=== PATIENT | female | born 1945 | race Caucasian/White ===

== ENCOUNTER 2019-09-30 10:45 | Emergency (ER) | payer MEDICARE, OTHER, SELFPAY ==
--- NOTE | ~2019-09-30 | CT_ITS ---
EXAMINATION: CT BRAIN W/O DATE: 09/30/2019 12:09 INDICATION: Status post fall. Headache. TECHNIQUE: Computed tomography (CT) of the head was performed without intravenous contrast. The dose- length product was 605.33 mGy-cm. The mA was adjusted according to patient size. Iterative reconstruc tion technique was employed. COMPARISON: No prior studies for comparison. FINDINGS: Normal brain parenchymal volume for age. Normal akins-white differentiation. No acute intrac ranial hemorrhage, infarction, mass or mass effect. There is a chronic left thalamic infarction. Ther e are scattered mild periventricular and subcortical white matter changes, most likely related to sma ll vessel ischemic disease (microangiopathy). No ventriculomegaly or midline shift. Midline sagittal images demonstrate a normal corpus callosum, c raniovertebral junction and sella turcica. Basilar cisterns are patent. Paranasal sinuses and mastoids are pneumatized. No depressed skull fractures. IMPRESSION: 1. No acute intracranial abnormality. 2: Chronic left thalamic infarction. Reviewed, dictated and finalized at location A.
--- NOTE | ~2019-09-30 | XR_ITS ---
XR femur RT min 2V, XR tibia fibula RT 2V 09/30/2019 11:55 INDICATION: Status post fall. Right leg pain. PROCEDURE: 2 views right femur and 2 views right tibia/fibula COMPARISON: No prior studies for comparison. FINDINGS: Fracture, dislocation or subluxation is not identified. The soft tissues appear within norm al limits. No foreign bodies are identified. IMPRESSION: 1: NO ACUTE BONE OR JOINT ABNORMALITY IDENTIFIED. Reviewed, dictated and finalized at location A. IMPRESSION: 1: NO ACUTE BONE OR JOINT ABNORMALITY IDENTIFIED.
--- NOTE | ~2019-09-30 | CT_ITS ---
EXAMINATION: CT cervical spine wo con DATE: 09/30/2019 12:10 INDICATION: Neck pain after fall TECHNIQUE: Computed tomography (CT) of the cervical spine was performed without intravenous contrast. The dose-length product was 240 mGy-cm. Automated exposure control and iterative reconstruction tech nique were employed. COMPARISON: None FINDINGS: No acute fracture, subluxation or dislocation. Normal cervical lordosis. There is disc narr owing and endplate degenerative change at C5-6 and C6-7. Odontoid process within normal limits. No si gnificant paraspinal soft tissue abnormality. Lung apices are normal. There is mild multilevel uncina te hypertrophy. IMPRESSION: 1. No acute fracture. Reviewed, dictated and finalized at location A. IMPRESSION: 1. No acute fracture.
[2019-09-30 10:51] VITALS: BP 141/109; PULSE 89; RESP 16; TEMP 37.2; O2SAT 100
[2019-09-30] MEDS: TRAMADOL HCL 50 MG TABLET PO (12:15)
--- NOTE | 2019-09-30 13:00 | ED.FALL ---
HPI - Fall General Chief Complaint: Fall <Dar Villa PA-C - Last Filed: 09/30/19 18:51> Stated Complaint: Fell down 7 steps <JESSICA Ramirez Last Filed: 09/30/19 18:51> Time Seen by Provider: 09/30/19 11:13 <Dar Villa PA-C - Last Filed: 09/30/19 18:51> Source: patient <JESSICA Ramirez Last Filed: 09/30/19 18:51> Mode of arrival: ambulatory <JESSICA Ramirez Last Filed: 09/30/19 18:51> Limitations: no limitations <JESSICA Ramirez Last Filed: 09/30/19 18:51> History of Present Illness HPI Narrative: Patient presents with chief complaint to right leg after falling down several stairs last night at approximately 10:30 PM. states that he witnessed the fall and patient did not lose consciousness. Patient reports doing sitting on a couch last night and thinking that the pain was tolerable so they went to bed. Patient states last night she did not sleep very well due to discomfort so they came to the emergency department today. Patient states that she also noted neck pain today. Patient denies changes in behavior, Changes in vision or hearing, bleeding from any of her orifices. Patient denies chest pain, shortness of breath, rib pain, spinal pain, sacrum or coccyx pain, abdominal pain. Patient states she takes a daily aspirin. <Dar Villa PA-C - Last Filed: 09/30/19 18:51> Related Data Allergies/Adverse Reactions: Allergies Allergy/AdvReac Type Severity Reaction Status Date / Time codeine Allergy Unknown Nausea Verified 09/30/19 10:59 <Dar Villa PA-C - Last Filed: 09/30/19 18:51> Review of Systems Review of Systems: Narrative: CONSTITUTIONAL: Denies fever, chills, or sweats. EYES: Denies visual changes, redness, or discharge. ENT: Denies rhinorrhea, congestion, sore throat, or otalgia. CARDIOVASCULAR: Denies chest pain, palpitations, or edema. RESPIRATORY: Denies cough or dyspnea. GASTROINTESTINAL: Denies abdominal pain, nausea, vomiting, or diarrhea. GENITOURINARY: Denies dysuria or hematuria. SKIN: Denies rash or itching. MUSCULOSKELETAL: Reports neck and right leg pain. Denies back pain, joint pain, or myalgia. NEUROLOGIC: Denies headache, numbness, dizziness, or weakness. PSYCHIATRIC: Denies anxiety or depression. <Dar Villa PA-C - Last Filed: 09/30/19 18:51> [facility] Social History Social History: Social History Smoking status: Never smoker Smoking end date: 07/25/84 Alcohol intake: current <Dar Villa PA-C - Last Filed: 09/30/19 18:51> Exam Narrative: Exam Narrative: GENERAL: Well-appearing, well-nourished, and in no acute distress. HEAD: Normocephalic, atraumatic. No hematomas, lacerations or swellings palpated. EYES: PERRLA and EOMI. ENT: Nares clear, no rhinorrhea or epistaxis. Mucous membranes moist. Oropharynx without tonsillar hypertrophy exudate or other lesions. Bilateral TMs pearly akins nonbulging. No hemotympanum noted. NECK: Supple. No adenopathy or masses. Diffuse tenderness to C-spine no step-offs palpated. Patient declines c-collar. active range of motion intact CHEST: Nontender to palpation. No erythema or ecchymosis noted. Clear to auscultation. No respiratory distress. No wheezes rales or rhonchi HEART: Regular rate and rhythm. Normal peripheral pulses. ABDOMEN: Soft, nontender, nondistended, normal active bowel sounds. BACK: No spinal tenderness. No step-offs palpated. No ecchymosis or abrasions noted. Range of motion intact. EXTREMITIES: Small bruises noted to bilateral thighs. Tenderness to palpation diffusely to upper and lower right leg. No open wounds. Mildly decreased flexion due to pain to right leg. No groin tenderness or hip pain. SKIN: Ecchymosis small size to upper right and left thigh. warm, dry, no rash. NEURO: No focal deficits. Alert and oriented x3. PSYCH: Normal mood and affect. <TUNG Ramirez-
[2019-09-30 13:56] VITALS: BP 127/57; PULSE 66; RESP 20; O2SAT 99
== END 2019-09-30 13:58 | disposition home or self-care (01) ==
PROVIDERS: Emergency Provider Emergency Medicine; PCP Family Medicine
DX: S70.11XA Contusion of right thigh, initial encounter (principal); S70.12XA Contusion of left thigh, initial encounter; S16.1XXA Strain of muscle, fascia and tendon at neck level, initial encounter; W10.9XXA Fall (on) (from) unspecified stairs and steps, initial encounter; Z79.82 Long term (current) use of aspirin
CPT/HCPCS: 70450; 72125; 73552; 73590; 99284; A9270

== ENCOUNTER 2019-10-05 14:36 | Outpatient (CLI) | payer MEDICARE, OTHER, SELFPAY ==
--- NOTE | ~2019-10-05 | MR_ITS ---
EXAMINATION: MR lower leg RT wo con DATE: 10/05/2019 16:02 INDICATION: Right lower leg pain. TECHNIQUE: Magnetic resonance imaging (MRI) of the right tibia and fibula was performed without intra venous contrast. Sequences included axial, coronal, and sagittal T1-weighted FSE and STIR FSE. COMPARISON: Right tibia and fibula radiographs 09/30/2019 FINDINGS: Bone alignment is normal. There is a nondisplaced oblique fracture of head of proximal fibu la. There is edema in the surrounding muscles. There is mild right knee osteoarthritis. There is a sm all right knee joint effusion. IMPRESSION: 1. Nondisplaced oblique fracture of head of proximal fibula. Reviewed, dictated and finalized at location A.
== END 2019-10-05 14:37 | disposition home or self-care (01) ==
PROVIDERS: PCP Family Medicine; Visit Provider Nurse Practitioner Family
DX: S82.434A Nondisplaced oblique fracture of shaft of right fibula, initial encounter for closed fracture (principal); Z91.81 History of falling
CPT/HCPCS: 73718

== ENCOUNTER 2020-10-23 09:39 | Outpatient (CLI) | payer MEDICARE, OTHER, SELFPAY ==
[2020-10-23 10:34] LABS: Basophils Percent Auto 0.8 % (0.2-1.2); Eosinophils Absolute Auto 0.2 K/mm3 (0-0.3); Eosinophils Percent Auto 4.7 % (0-4.4); Hematocrit 39.5 % (37.0-47.0); Hemoglobin 12.9 g/dL (12.0-15.0); Immature Granulocyte Absolute 0.02 K/mm3 (0.00-0.031); Immature Granulocyte Percent A 0.4 % (0-0.5); Lymphocytes Absolute Auto 1.64 K/mm3 (0.9-3.2); Lymphocytes Percent Auto 34.7 % (18.3-44.2); Mean Corpuscular HGB Conc 32.7 g/dl (32-36); Mean Corpuscular Hemoglobin 29.2 pg (26-34); Mean Corpuscular Volume 89.4 fl (80-100); Mean Platelet Volume 10.7 fl (7.4-10.4); Monocytes Absolute Auto 0.5 K/mm3 (0.1-0.6); Monocytes Percent Auto 10.4 % (2.6-8.5); Neutrophils Absolute Auto 2.3 K/mm3 (1.3-6.7); Platelet Count Result 237 k/mm3 (150-375); Red Blood Count 4.42 M/mm3 (4.2-5.4); Red Cell Distribution Width 13.7 % (11.5-14.5); White Blood Count 4.7 K/mm3 (4.5-10.0)
[2020-10-23 10:42] LABS: Alanine Aminotransferase 14 U/L (4-35); Albumin Level 4.2 g/dL (3.5-5.1); Alkaline Phosphatase 44 U/L (38-126); Anion Gap 5 mmol/L (8-16); Aspartate Amino Transferase 21 U/L (14-36); Bilirubin,Total 0.4 mg/dL (0.2-1.3); Blood Urea Nitrogen 24 mg/dL (7-17); Calcium 9.6 mg/dL (8.4-10.2); Carbon Dioxide 28 mmol/L (22-30); Chloride 107 mmol/L (98-107); Cholesterol 263 mg/dL (0-200); Estimated Glomerular Filt Rate > 60; Glucose 103 mg/dL (65-105); HDL Direct 79 mg/dL; Potassium 4.7 mmol/L (3.4-5.0); Sodium 140 mmol/L (137-145); Triglycerides 81 mg/dL (<150)
[2020-10-23 10:53] LABS: LDL Cholesterol Direct 132 mg/dL
== END 2020-10-23 09:40 | disposition home or self-care (01) ==
LOC: ANHLAB 09:44
PROVIDERS: PCP Family Medicine; Visit Provider Family Medicine
DX: F41.9 Anxiety disorder, unspecified (principal); Z13.220 Encounter for screening for lipoid disorders; E78.2 Mixed hyperlipidemia; I73.00 Raynaud's syndrome without gangrene
CPT/HCPCS: 36415; 80053; 80061; 84443; 85025

== ENCOUNTER → 2021-03-14 02:10 | Outpatient (CLI) | payer MEDICARE, OTHER, SELFPAY ==
[2021-03-15 01:36] LABS: SARS-CoV-2 RNA PCR Negative
== END ==
PROVIDERS: PCP Family Medicine; Visit Provider Family Medicine
DX: R50.9 Fever, unspecified (principal); R51.9 Headache, unspecified; Z20.822 Contact with and (suspected) exposure to COVID-19
CPT/HCPCS: C9803; U0003; U0005

== ENCOUNTER 2021-03-16 11:40 | Emergency (ER) | payer MEDICARE, OTHER, SELFPAY ==
[2021-03-16 11:55] VITALS: BP 112/58; PULSE 92; RESP 18; TEMP 36.7; O2SAT 99
--- NOTE | 2021-03-16 12:40 | ED.GENADULT ---
HPI - General Adult General Chief complaint: Upper Respiratory Infection Stated complaint: headache/chills/fever/body aches Time Seen by Provider: 03/16/21 12:30 Source: patient and family (Has been) History of Present Illness HPI narrative: 75-year-old female presents to the [facility] at request of her primary care provider. She states on she started with headache, Tuesday morning started with fatigue, headache, chills, muscle aches. This morning started with a red rash to bilateral lower legs and since has progressed to a petechial rash. Denies it being itchy or painful. Rashes only to the bilateral lower legs. Related Data Home Medications Medication Instructions Recorded Confirmed fluocinonide 1 applic TOPICAL DAILY 03/16/21 03/16/21 Allergies Allergy/AdvReac Type Severity Reaction Status Date / Time codeine Allergy Unknown Nausea Verified 08/14/20 08:20 Review of Systems Review of Systems: All systems reviewed & are unremarkable except as noted in HPI and below Constitutional: Constitutional: Reports as per HPI, Reports chills and Denies fever(s) Eyes: Eyes: Reports no additional eye complaints ENT: Reports system reviewed and no additional complaints, except as documented Cardiovascular: Cardiovascular: Reports no additional cardiovascular complaints and Denies chest pain Respiratory: Respiratory: Reports as per HPI, Reports cough and Reports dyspnea Gastrointestinal: Gastrointestinal: Reports no additional gastrointestinal complaints and Denies abdominal pain Musculoskeletal: Musculoskeletal: Reports as per HPI, Denies back pain and Reports myalgias Integumentary/Breasts: Skin/Breast: Reports as per HPI and Reports rash (Bilateral legs) Neurologic: Reports as per HPI and Reports headache(s) Psychiatric: Psychiatric: Reports no additional psychiatric complaints Allergic/Immunologic: Allergic/Immunologic: Reports no additional allergic/immunologic complaints [facility] Past Medical History Medical History (Updated 03/16/21 @ 20:22 by Brinda Cormier) Anxiety BMI 25.0-25.9,adult Chronic constipation Depression Fracture of proximal end of fibula High ankle sprain of right lower extremity Osteoporosis Screen for colon cancer Family History Family History Father Hypertension Cerebrovascular accident Family history of diabetes mellitus in first degree relative Family history of coronary artery disease Mother Hypertension Cerebrovascular accident Family history of diabetes mellitus in first degree relative Family history of coronary artery disease Sibling Hypertension Family history of diabetes mellitus in first degree relative Other Diabetes mellitus Family history of arthritis Social History Social History Smoking status: Former smoker Smoking end date: 07/25/84 Alcohol intake: current Comments At the time of my signature, I reviewed and agree with the nursing past medical, surgical, social, and family history. There is no relevant family history pertinent to the patient complaint. Exam Const: General: no acute distress, alert and ill appearing acutely Nutritional Appearance: well nourished Orientation/consciousness: patient oriented x3 Limitations: no limitations HENMT: Head: normal to inspection Ears: external ears normal Eyes: Conjunctivae: conjunctivae normal Pupils: Equal, round and reactive pupils present Neck: Neck: normal visual inspection, no lymphadenopathy and no meningeal signs Chest: Chest palpation & inspection: normal inspection of the chest Resp: Effort & Inspection: normal respiratory effort and no use of accessory muscles Auscultation: clear to auscultation bilaterally, no rales, no rhonchi and no wheezes Cardio: Rate: regular rate Rhythm: regular rhythm GI: GI Palp: Yes Soft to palpation and No Tenderness to palpation p
== END 2021-03-16 13:40 | disposition short-term general hospital (02) ==
LOC: EXPCOLL 11:49
PROVIDERS: Emergency Provider Nurse Practitioner; PCP Family Medicine
DX: B34.9 Viral infection, unspecified (principal); R21 Rash and other nonspecific skin eruption; Z20.822 Contact with and (suspected) exposure to COVID-19; Z87.891 Personal history of nicotine dependence; M81.0 Age-related osteoporosis without current pathological fracture
CPT/HCPCS: 87426; 87804; 99213; C9803; G0463

== ENCOUNTER 2021-03-16 14:30 | Emergency (ER) | payer MEDICARE, OTHER, SELFPAY ==
[2021-03-16 15:08] VITALS: BP 124/72; PULSE 95; RESP 18; TEMP 36.6; O2SAT 97
[2021-03-16 15:29] LABS: Basophils Percent Auto 0.6 % (0.2-1.2); Eosinophils Absolute Auto 0.3 K/mm3 (0-0.3); Eosinophils Percent Auto 4.1 % (0-4.4); Hematocrit 41.8 % (37.0-47.0); Hemoglobin 13.5 g/dL (12.0-15.0); Immature Granulocyte Absolute 0.04 K/mm3 (0.00-0.031); Immature Granulocyte Percent A 0.6 % (0-0.5); Lymphocytes Absolute Auto 1.79 K/mm3 (0.9-3.2); Lymphocytes Percent Auto 25.5 % (18.3-44.2); Mean Corpuscular HGB Conc 32.3 g/dl (32-36); Mean Corpuscular Hemoglobin 29.3 pg (26-34); Mean Corpuscular Volume 90.7 fl (80-100); Mean Platelet Volume 10.1 fl (7.4-10.4); Monocytes Absolute Auto 0.5 K/mm3 (0.1-0.6); Monocytes Percent Auto 6.7 % (2.6-8.5); Neutrophils Absolute Auto 4.4 K/mm3 (1.3-6.7); Neutrophils Percent Auto 62.5 % (45.5-73.1); Platelet Count Result 234 k/mm3 (150-375); Red Blood Count 4.61 M/mm3 (4.2-5.4); Red Cell Distribution Width 13.3 % (11.5-14.5)
[2021-03-16 15:40] LABS: Alanine Aminotransferase 17 U/L (4-35); Alkaline Phosphatase 67 U/L (38-126); Anion Gap 10 mmol/L (8-16); Aspartate Amino Transferase 22 U/L (14-36); Bilirubin,Total 0.6 mg/dL (0.2-1.3); Blood Urea Nitrogen 20 mg/dL (7-17); Calcium 9.5 mg/dL (8.4-10.2); Carbon Dioxide 25 mmol/L (22-30); Chloride 99 mmol/L (98-107); Estimated CRCL calculation 43 ml/min; Estimated Glomerular Filt Rate > 60; Glucose 142 mg/dL (65-110); Potassium 4.5 mmol/L (3.4-5.0); Sodium 134 mmol/L (137-145)
[2021-03-16 17:04] VITALS: BP 111/64; PULSE 88; RESP 18; O2SAT 98
--- NOTE | 2021-03-16 17:36 | ED.GENADULT ---
HPI - General Adult General Chief complaint: Skin/Abscess/Foreign Body Stated complaint: H/A, FATIGUE/RASH, SENT FROM [facility]/-covid Time Seen by Provider: 03/16/21 17:35 Source: patient Mode of arrival: ambulatory Limitations: no limitations History of Present Illness HPI narrative: Patient is here for evaluation of fatigue and a purpuric rash that developed on her legs today. It does not itch and is primarily on her legs, now starting on her forearms. She is also complaining of significant dry mouth. She has been taking Cipro since Tuesday evening. The rash developed today and worsened as the day progressed. She states that her fatigue has been for several days along with her dry mouth. She is unclear of an exact timeline as she has been caring for her ill . Onset (ago): day(s) Radiation: non-radiation Associated symptoms: denies other symptoms Related Data Home Medications Medication Instructions Recorded Confirmed fluocinonide 1 applic TOPICAL DAILY 03/16/21 03/16/21 Allergies Allergy/AdvReac Type Severity Reaction Status Date / Time codeine Allergy Unknown Nausea Verified 08/14/20 08:20 Review of Systems Review of Systems: All systems reviewed & are unremarkable except as noted in HPI and below PMFSH Past Medical History Medical History (Updated 03/16/21 @ 20:15 by Bing Romero PA-C) Anxiety BMI 25.0-25.9,adult Chronic constipation Depression Fracture of proximal end of fibula High ankle sprain of right lower extremity Osteoporosis Screen for colon cancer Family History Family History Father Hypertension Cerebrovascular accident Family history of diabetes mellitus in first degree relative Family history of coronary artery disease Mother Hypertension Cerebrovascular accident Family history of diabetes mellitus in first degree relative Family history of coronary artery disease Sibling Hypertension Family history of diabetes mellitus in first degree relative Other Diabetes mellitus Family history of arthritis Social History Social History Smoking status: Former smoker Smoking end date: 07/25/84 Alcohol intake: current Exam Const: General: no acute distress and alert Orientation/consciousness: patient oriented x3 HENMT: Head: normal to inspection Eyes: Pupils: Equal, round and reactive pupils present Neck: Neck: no lymphadenopathy Resp: Effort & Inspection: normal respiratory effort Auscultation: clear to auscultation bilaterally Cardio: Rate: regular rate Rhythm: regular rhythm GI: GI Palp: Yes Soft to palpation : General: Yes no CVA tenderness Skin: Rashes: rashes noted (BLE and BUE. mottling, slightly raised. non-blanching in LE.) Neuro: General: patient oriented x3, moves all extremities, no meningeal signs and no focal motor deficits Extrem: General: no clubbing, cyanosis or edema Right lower extremity: knee Details: tenderness and swelling Left lower extremity: knee Details: tenderness and swelling Psych: Mental Status: mental status grossly normal Course Course Emergency Course: Patient's labs are all normal. The rash is not a typical drug reaction. Her cluster of symptoms are concerning for a Dao-Nicko type reaction or Sjogren's. Patient is feeling better and the rash looks a little better after receiving a dose of steroids. Discussed all the options. She also suffers from chronic constipation should be discussing treatment options with her primary care physician she has an appointment in the next couple weeks. Vital Signs Vital signs: Vital Signs Temperature 36.6 C 03/16/21 15:08 Pulse Rate 95 03/16/21 15:08 Respiratory Rate 18 03/16/21 15:08 Blood Pressure 124/72 03/16/21 15:08 Pulse Oximetry 97 03/16/21 15:08 Temperature 36.6 C 03/16/21 15:08 Pulse Rate 88 03/16/21 17:04 Respira
--- NOTE | 2021-03-16 18:13 | PC.NURSE ---
Called and spoke to Peggy about adding on TSH at 1810
[2021-03-16 19:12] LABS: Add Urine Microscopic? YES; Appearance Urine Clear (Clear); Bilirubin Urine Negative (Negative); Blood Urine Negative (Negative); Color Urine Yellow (Yellow); Glucose Urine UA Negative (Negative); Ketones Urine Negative (Negative); Leukocyte Esterase Ur Negative LEU/UL (Negative); Nitrate Urine Negative (Negative); Protein Urine Negative (Negative); Urobilinogen Urine Negative mg/dL (<2.0)
[2021-03-16] MEDS: predniSONE 20 MG TABLET 40 MG PO (19:36)
[2021-03-16 19:44] LABS: Squamous Epithelial Cell Urine Rare /hpf (Few)
[2021-03-16 20:21] VITALS: BP 131/75; PULSE 73; RESP 18; O2SAT 100
== END 2021-03-16 20:22 | disposition home or self-care (01) ==
PROVIDERS: Physician Assistant; Emergency Provider Emergency Medicine; PCP Family Medicine
DX: L27.0 Generalized skin eruption due to drugs and medicaments taken internally (principal); T36.8X5A Adverse effect of other systemic antibiotics, initial encounter; R53.83 Other fatigue; K59.09 Other constipation; Z87.891 Personal history of nicotine dependence; M81.0 Age-related osteoporosis without current pathological fracture; F41.9 Anxiety disorder, unspecified; F32.9 Major depressive disorder, single episode, unspecified
CPT/HCPCS: 36415; 51701; 80053; 81001; 84443; 85025; 87426; 87804; 99283; C9803; J7512

== ENCOUNTER 2021-05-06 10:13 | Outpatient (CLI) | payer MEDICARE, OTHER, SELFPAY ==
--- NOTE | 2021-05-06 12:00 | NEURO_ITS ---
Impression: # Complains of pain in lower extremities. # Normal nerve conduction study of peroneal, posterior tibial and sensory nerves. # Needle/EMG exam not requested. # Clinical correlation recommended. Nerve Conduction Studies Anti Sensory Summary Table Stim Site NR Peak (ms) P-T Amp (?V) Site1 Site2 Delta-P (ms) Dist (cm) Adilson (m/s) Left Sup Fibular Anti Sensory (Ant Lat Mall) 14 cm 3.8 7.9 14 cm Ant Lat Mall 3.8 16.0 42 Right Sup Fibular Anti Sensory (Ant Lat Mall) 14 cm 3.2 13.5 14 cm Ant Lat Mall 3.2 16.0 50 Left Sural Anti Sensory (Lat Mall) Calf 3.3 11.0 Calf Lat Mall 3.3 16.0 48 Right Sural Anti Sensory (Lat Mall) Calf 3.6 7.2 Calf Lat Mall 3.6 16.0 44 Motor Summary Table Stim Site NR Onset (ms) O-P Amp (mV) Site1 Site2 Delta-0 (ms) Dist (cm) Adilson (m/s) Left Peroneal Motor (Vastus Med) Ankle 3.8 1.7 Popit Ankle 7.7 39.0 51 Popit 11.5 1.3 Right Peroneal Motor (Vastus Med) Ankle 4.0 3.3 Popit Ankle 7.1 35.0 49 Popit 11.1 2.7 Left Tibial Motor (Abd Chavarria Brev) Ankle 4.3 5.3 Knee Ankle 7.7 39.0 51 Knee 12.0 3.5 Right Tibial Motor (Abd Chavarria Brev) Ankle 4.4 9.1 Knee Ankle 7.9 39.0 49 Knee 12.3 5.5 F Wave Studies NR F-Lat (ms) L-R F-Lat (ms) Left Peroneal (Mrkrs) (EDB) 44.16 0.06 Right Peroneal (Mrkrs) (EDB) 44.22 0.06 Left Tibial (Mrkrs) (Abd Hallucis) 45.08 0.33 Right Tibial (Mrkrs) (Abd Hallucis) 45.41 0.33 MTDD
== END 2021-05-06 10:14 | disposition home or self-care (01) ==
LOC: ANHNEURO 10:14
PROVIDERS: PCP Family Medicine; Visit Provider Family Medicine
DX: G60.9 Hereditary and idiopathic neuropathy, unspecified (principal)
CPT/HCPCS: 95910

== ENCOUNTER 2021-09-29 11:59 | Emergency (ER) | payer MEDICARE, OTHER, SELFPAY ==
--- NOTE | ~2021-09-29 | CT_ITS ---
EXAMINATION: CT brain wo con EXAM DATE: 09/29/2021 12:44 INDICATION: Altered mental status TECHNIQUE: Spiral CT of the head was performed without contrast. Axial, coronal and sagittal images were reviewed. The dose-length product (DLP) for this examination was 605.33 mGy-cm. The exposure w as tailored according to patient size, and iterative reconstruction (ASIR) was used as additional dos e reduction technique. Comparison is made to prior examination from 09/30/2019. FINDINGS: There is no acute intraparenchymal hemorrhage. No evidence of intraparenchymal brain mass lesion. No evidence of acute infarction. Please note that initial head CT has limited sensitivity f or small or acute infarctions. There is old left thalamic lacunar infarction unchanged. There is mi ld periventricular and subcortical hypodensity, nonspecific but probably related to small vessel isch emic disease. There is moderate prominence of the sulci and ventricles related to cerebral atrophy. There is intracranial carotid arteriosclerosis. There are no extra-axial collections. There is n o mass effect or midline shift. Patient has had bilateral ocular lens surgery. Soft tissue is unrem arkable. The visualized sinuses and mastoid air cells are well aerated. IMPRESSION: 1. No acute intracranial findings. 2. Chronic age related findings. 3. 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 Reviewed, dictated and finalized at location A. 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
--- NOTE | ~2021-09-29 | XR_ITS ---
EXAMINATION: XR chest 2V EXAM DATE: 09/29/2021 12:48 INDICATION: Weakness, urinary tract infection. TECHNIQUE: Frontal and lateral projections of the chest obtained and reviewed. Comparison is made to prior examination from 05/29/2019. FINDINGS: The lungs are clear. There are no pleural effusions. The cardiomediastinal silhouette is within normal limits. There is no pneumothorax suspected. The bones and soft tissues are unremarkab le. IMPRESSION: No acute cardiopulmonary findings. Reviewed, dictated and finalized at location A. 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
[2021-09-29 12:02] VITALS: BP 150/92; PULSE 87; RESP 18; TEMP 36.8; O2SAT 100
--- NOTE | 2021-09-29 12:31 | ECG_ITS ---
Measurements Intervals [place] Rate: 72 P: 66 [place]: 139 QRS: 11 QRSD: 75 T: 29 QT: 371 QTc: 406 Interpretive Statements SINUS RHYTHM NORMAL ECG NO PREVIOUS ECG AVAILABLE FOR COMPARISON Electronically Signed On 09-29-2021 14:55:11 TRADEMARK ATTORNEY by Rob Maldonado M.D.
--- NOTE | 2021-09-29 12:32 | ED.GENADULT ---
HPI - General Adult General Chief complaint: Unspecified Stated complaint: urinary frequency Time Seen by Provider: 09/29/21 12:29 Source: patient and family Mode of arrival: ambulatory Limitations: no limitations History of Present Illness HPI narrative: Patient is a 76-year-old female complaining of reaction to Wellbutrin described as intermittent short-term memory loss, generalized weakness and increased urinary frequency started 1 week ago. Patient had similar a episode last month from Wellbutrin XR, was seen and evaluated by her PCP and was changed to regular Wellbutrin. Patient is alert and awake and oriented x4, walked with her room without difficulty. Patient denies any headache, dizziness, speech or visual disturbance, focal weakness or numbness, unsteady gait, chest pain, shortness of breath, abdominal pain, nausea, vomiting, fever or chills. Related Data Allergies Allergy/AdvReac Type Severity Reaction Status Date / Time codeine Allergy Unknown Nausea Verified 09/14/21 08:40 Review of Systems Review of Systems: All systems reviewed & are unremarkable except as noted in HPI and below Constitutional: Constitutional: Denies body ache(s), Denies chills, Denies excessive sweating, Denies fatigue, Denies fever(s), Denies headache(s), Denies lethargy, Denies malaise, Denies weakness and Denies weight loss Eyes: Eyes: Denies blurry vision, Denies change in vision and Denies loss of vision ENT: Denies dizziness, Denies ear discharge, Denies headache(s), Denies lip swelling, Denies epistaxis, Denies nasal congestion, Denies neck pain, Denies throat swelling and Denies tongue swelling Cardiovascular: Cardiovascular: Denies chest pain, Denies chest pain at rest, Denies chest pain with activity, Denies diaphoresis, Denies rapid heart rate, Denies edema, Denies irregular heart rhythm, Denies lightheadedness, Denies palpitations, Denies dyspnea and Denies dyspnea on exertion Respiratory: Respiratory: Denies chest congestion, Denies cough, Denies hemoptysis, Denies dyspnea and Denies dyspnea on exertion Gastrointestinal: Gastrointestinal: Denies abdominal pain, Denies melena, Denies hematochezia, Denies diarrhea, Denies nausea, Denies vomiting and Denies hematemesis Musculoskeletal: Musculoskeletal: Denies abnormal gait, Denies deformity, Denies joint swelling, Denies limited range of motion, Denies neck pain and Denies numbness Neurologic: Denies Abnormal speech present, Denies abnormal gait, Denies confusion, Denies dizziness, Denies headache(s), Denies focal weakness, Denies loss of vision, Denies numbness, Denies Other visual disturbances, Denies Sensory deficit (Neuro) and Denies weakness Psychiatric: Psychiatric: Denies confusion, Denies depression, Denies auditory hallucinations, Denies homicidal ideation and Denies suicidal ideation Endocrine: Endocrine: Denies cold intolerance, Denies excessive sweating, Denies fatigue, Denies heat intolerance and Denies palpitations Hematologic/Lymphatic: Hematologic/Lymphatic: Denies easy bleeding and Denies easy bruising Allergic/Immunologic: Allergic/Immunologic: Denies lip swelling, Denies throat swelling and Denies tongue swelling PMFSH Past Medical History Medical History Anxiety BMI 25.0-25.9,adult BMI 30.0-30.9,adult BMI greater than 30 Chronic constipation Depression Dyspepsia Fracture of proximal end of fibula High ankle sprain of right lower extremity Osteoporosis Screen for colon cancer Family History Family History Father Hypertension Cerebrovascular accident Family history of diabetes mellitus in first degree relative Family history of coronary artery disease Diabetes mellitus Heart disease Mother Hypertension Cerebrovascular accident Family history of diabetes mellitus in first degree relative Family history of coronary artery disease Hea
[2021-09-29 12:47] LABS: Basophils Absolute Auto 0.1 K/mm3 (0.0-0.1); Basophils Percent Auto 0.9 % (0.2-1.2); Eosinophils Absolute Auto 0.2 K/mm3 (0-0.3); Eosinophils Percent Auto 4.1 % (0-4.4); Hematocrit 40.1 % (37.0-47.0); Hemoglobin 12.8 g/dL (12.0-15.0); Immature Granulocyte Absolute 0.03 K/mm3 (0.00-0.031); Immature Granulocyte Percent A 0.5 % (0-0.5); Lymphocytes Absolute Auto 1.43 K/mm3 (0.9-3.2); Lymphocytes Percent Auto 25.5 % (18.3-44.2); Mean Corpuscular HGB Conc 31.9 g/dl (32-36); Mean Corpuscular Hemoglobin 28.9 pg (26-34); Mean Corpuscular Volume 90.5 fl (80-100); Mean Platelet Volume 10.5 fl (7.4-10.4); Monocytes Absolute Auto 0.5 K/mm3 (0.1-0.6); Monocytes Percent Auto 8.8 % (2.6-8.5); Neutrophils Absolute Auto 3.4 K/mm3 (1.3-6.7); Neutrophils Percent Auto 60.2 % (45.5-73.1); Platelet Count Result 249 k/mm3 (150-375); Red Blood Count 4.43 M/mm3 (4.2-5.4); Red Cell Distribution Width 13.3 % (11.5-14.5); White Blood Count 5.6 K/mm3 (4.5-10.0)
[2021-09-29 12:52] LABS: Add Urine Microscopic? YES; Appearance Urine Cloudy (Clear); Bacteria Urine Trace /hpf; Bilirubin Urine Negative (Negative); Blood Urine Negative (Negative); Color Urine Yellow (Yellow); Glucose Urine UA Negative (Negative); Ketones Urine Negative (Negative); Leukocyte Esterase Ur Trace LEU/UL (Negative); Mucus Urine Rare /lpf; Nitrate Urine Negative (Negative); Protein Urine Negative (Negative); RBC Urine 0-2 /hpf (0-2); Specific Grav Ur 1.011 (1.001-1.035); Squamous Epithelial Cell Urine Moderate /hpf (Few); Urobilinogen Urine Negative mg/dL (<2.0)
[2021-09-29 13:03] LABS: Alanine Aminotransferase 43 U/L (4-35); Albumin Level 4.4 g/dL (3.5-5.1); Alkaline Phosphatase 62 U/L (38-126); Anion Gap 10 mmol/L (8-16); Aspartate Amino Transferase 41 U/L (14-36); Bilirubin,Total 0.4 mg/dL (0.2-1.3); Blood Urea Nitrogen 27 mg/dL (7-17); Calcium 9.4 mg/dL (8.4-10.2); Carbon Dioxide 25 mmol/L (22-30); Chloride 104 mmol/L (98-107); Estimated CRCL calculation 35 ml/min; Estimated Glomerular Filt Rate 48; Glucose 107 mg/dL (65-110); Potassium 4.4 mmol/L (3.4-5.0); Sodium 139 mmol/L (137-145)
[2021-09-29 13:14] LABS: Troponin I < 0.012 ng/mL (0.000-0.034)
[2021-09-29 16:45] VITALS: BP 142/58
== END 2021-09-29 16:46 | disposition home or self-care (01) ==
PROVIDERS: Emergency Provider Emergency Medicine; PCP Family Medicine
DX: R53.1 Weakness (principal); T43.295A Adverse effect of other antidepressants, initial encounter; N39.0 Urinary tract infection, site not specified; F41.9 Anxiety disorder, unspecified; F32.A Depression, unspecified; M81.0 Age-related osteoporosis without current pathological fracture; Z87.891 Personal history of nicotine dependence
CPT/HCPCS: 36415; 70450; 71046; 80053; 81001; 84484; 85025; 87077; 87086; 87186; 93005; 99284

== ENCOUNTER 2021-10-02 12:50 | Inpatient (IN) | payer MEDICARE, OTHER, SELFPAY ==
[2021-10-02 13:02] VITALS: BP 123/69; PULSE 112; RESP 20; TEMP 39.3; O2SAT 97
--- NOTE | 2021-10-02 13:06 | ECG_ITS ---
Measurements Intervals [place] Rate: 119 P: 49 [place]: 133 QRS: -29 QRSD: 76 T: 65 QT: 305 QTc: 430 Interpretive Statements SINUS TACHYCARDIA BASELINE ARTIFACT POSSIBLE LEFT ATRIAL ENLARGEMENT [-0.1mV P WAVE IN V1/V2] BORDERLINE ECG COMPARED TO ECG 09/29/2021 13:00:31 SINUS TACHYCARDIA NOW PRESENT Electronically Signed On 10-02-2021 15:23:41 PLC CONTROLS ENGINEER by Rob Maldonado M.D.
[2021-10-02 13:24] LABS: Basophils Percent Auto 0.2 % (0.2-1.2); Eosinophils Absolute Auto 0.1 K/mm3 (0-0.3); Eosinophils Percent Auto 0.5 % (0-4.4); Hematocrit 41.5 % (37.0-47.0); Hemoglobin 13.8 g/dL (12.0-15.0); Immature Granulocyte Absolute 0.05 K/mm3 (0.00-0.031); Immature Granulocyte Percent A 0.4 % (0-0.5); Lymphocytes Absolute Auto 0.27 K/mm3 (0.9-3.2); Lymphocytes Percent Auto 2.3 % (18.3-44.2); Mean Corpuscular HGB Conc 33.3 g/dl (32-36); Mean Corpuscular Hemoglobin 29.6 pg (26-34); Mean Corpuscular Volume 89.1 fl (80-100); Mean Platelet Volume 9.8 fl (7.4-10.4); Monocytes Absolute Auto 0.4 K/mm3 (0.1-0.6); Monocytes Percent Auto 3.2 % (2.6-8.5); Neutrophils Absolute Auto 10.8 K/mm3 (1.3-6.7); Neutrophils Percent Auto 93.4 % (45.5-73.1); Platelet Count Result 237 k/mm3 (150-375); Red Blood Count 4.66 M/mm3 (4.2-5.4); Red Cell Distribution Width 13.5 % (11.5-14.5); White Blood Count 11.6 K/mm3 (4.5-10.0)
[2021-10-02 13:34] LABS: Alanine Aminotransferase 29 U/L (4-35); Albumin Level 4.6 g/dL (3.5-5.1); Alkaline Phosphatase 62 U/L (38-126); Anion Gap 10 mmol/L (8-16); Aspartate Amino Transferase 28 U/L (14-36); Bilirubin,Total 0.8 mg/dL (0.2-1.3); Blood Urea Nitrogen 20 mg/dL (7-17); Calcium 9.7 mg/dL (8.4-10.2); Carbon Dioxide 24 mmol/L (22-30); Chloride 104 mmol/L (98-107); Estimated CRCL calculation 39 ml/min; Estimated Glomerular Filt Rate 54; Glucose 187 mg/dL (65-110); Potassium 4.9 mmol/L (3.4-5.0); Sodium 138 mmol/L (137-145)
[2021-10-02 13:37] LABS: Lactic Acid Reflex 2.2 mmol/L (0.7-2.1)
[2021-10-02] MEDS: SODIUM CHLORIDE 0.9% IV 1,000 ML 999 ML IV CONT (14:58)
[2021-10-02 15:59] LABS: Add Urine Microscopic? YES; Appearance Urine Cloudy (Clear); Bacteria Urine Trace /hpf; Bilirubin Urine Negative (Negative); Blood Urine Negative (Negative); Color Urine Yellow (Yellow); Glucose Urine UA Negative (Negative); Ketones Urine 1+ mg/dL (Negative); Leukocyte Esterase Ur Negative LEU/UL (Negative); Mucus Urine Rare /lpf; Nitrate Urine Negative (Negative); Protein Urine Negative (Negative); RBC Urine 0-2 /hpf (0-2); Specific Grav Ur 1.018 (1.001-1.035); Squamous Epithelial Cell Urine Rare /hpf (Few); Urobilinogen Urine Negative mg/dL (<2.0); WBC Urine 0-3 /hpf
[2021-10-02 16:22] LABS: Reflex Lactic Acid Yes or No Add Lactic
[2021-10-02 16:31] VITALS: BP 98/50; PULSE 87; RESP 18; TEMP 36.9; O2SAT 98
--- NOTE | 2021-10-02 16:40 | ED.GENADULT ---
HPI - General Adult General Chief complaint: Weakness Stated complaint: weakness Time Seen by Provider: 10/02/21 13:55 History of Present Illness HPI narrative: Patient is a 76-year-old female who presents ER with weakness. Having difficulty standing and moving around due to weakness. Ongoing over the last week. Seen 4 days ago. Prescribed cephalexin for UTI. She followed this course of instruction. Her PCP then prescribed Macrobid. Patient appears to be growing out E. coli in her urine culture. She is having fevers and chills as well. She has occasional incontinence of urine. No abdominal pain. No blood in her urine. Related Data Home Medications Medication Instructions Recorded Confirmed vortioxetine 5 mg tablet 5 mg PO DAILY 10/01/21 10/01/21 Allergies Allergy/AdvReac Type Severity Reaction Status Date / Time bupropion [From Wellbutrin] Allergy Mild Unknown Verified 10/01/21 10:59 codeine Allergy Unknown Nausea Verified 10/01/21 09:45 Review of Systems Review of Systems: All systems reviewed & are unremarkable except as noted in HPI and below Constitutional: Constitutional: Reports chills, Reports fever(s) and Reports weakness ENT: Denies nasal congestion and Denies sore throat Cardiovascular: Cardiovascular: Denies chest pain, Denies rapid heart rate and Denies radiating jaw, neck or arm pain Respiratory: Respiratory: Denies cough and Denies dyspnea Gastrointestinal: Gastrointestinal: Denies abdominal pain, Denies nausea and Denies vomiting Genitourinary: Genitourinary: Denies hematuria, Denies nocturia, Denies dysuria, Denies flank pain and Reports urinary incontinence Neurologic: Denies headache(s), Denies focal weakness, Denies numbness and Reports weakness [facility] Past Medical History Medical History (Updated 10/02/21 @ 18:11 by Jorge Sanz MD) Anxiety BMI 25.0-25.9,adult BMI 30.0-30.9,adult BMI greater than 30 Chronic constipation Depression Dyspepsia Fracture of proximal end of fibula High ankle sprain of right lower extremity Osteoporosis Screen for colon cancer Urinary tract infection Family History Family History Father Hypertension Cerebrovascular accident Family history of diabetes mellitus in first degree relative Family history of coronary artery disease Diabetes mellitus Heart disease Mother Hypertension Cerebrovascular accident Family history of diabetes mellitus in first degree relative Family history of coronary artery disease Heart disease Sibling Hypertension Family history of diabetes mellitus in first degree relative Other Family history of arthritis Social History Social History Tobacco type: cigarettes Second hand tobacco smoke exposure: Yes Smoking end date: 07/25/84 Alcohol intake: current Substance use: never Substance use type: does not use 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 Gender identity (if verbalized by the patient): Female Exam Narrative: GENERAL: Well-appearing, well-nourished, and in no acute distress. HEAD: Normocephalic, atraumatic. EYES: PERRL and EOMI. ENT: Dry mucous membranes. CHEST: Clear to auscultation. No respiratory distress. HEART: Regular rate and rhythm. Normal peripheral pulses. ABDOMEN: Soft, nontender, nondistended. EXTREMITIES: Normal range of motion. No edema. SKIN: Warm, dry, no rash. NEURO: Alert and oriented x3. PSYCH: Normal mood and affect. Course Course Emergency Course: Admit for observation and hydration. Patient failing outpatient antibiotic therapy. New white count elevated lactic acid with fever 102.7 Patient given antipyretics and IV ceftriaxone. Vital Signs Vital signs: Vital Signs Temperature 102.7 F H 10/02/21 13:02 Pulse Rate 112 H 10/02/21 13:02 Respiratory Rate 20 10/02/21 13:02 B
[2021-10-02 17:14] LABS: Lactic Acid 0.9 mmol/L (0.7-2.1)
--- NOTE | 2021-10-02 17:56 | PM.IMHP ---
H&P: HPI History of Present Illness Date/Time: Patient requires inpatient monitoring with expected length of stay to exceed 2 midnights for management of care. 10/02/21 17:56 Chief Complaint: Weakness and altered mental status Narrative: Ms. Waters is a 76-year-old female who presented to the emergency room with complaints of altered mental status and weakness. Patient had been seen in the emergency room on 09/29/2021 with complaints of urinary frequency and weakness. Patient was sent home on Keflex as well as Macrobid and was taking all of her antibiotics. Patient states she continued to have incontinence and today when she got out of bed she could not walk. Patient's states that he found the patient leaning against the wall and that she was shivering. Patient's states that she was very confused at that point in time. Patient's states he is unsure if she had a fever because he did not check her temperature but he thought she may have because she complained of being very cold and was shivering. Patient states she does not recall being confused and does not recall being that weak. Upon evaluation in emergency room patient was noted to have a fever of 102.7? F with elevated lactic acid and a new leukocytosis. Patient's urine culture from 09/29/2021 does show E coli and a susceptibility is available. Patient states she does have a history of anxiety, GERD, osteoporosis, frequent urinary tract infections, and chronic constipation. At this time patient is alert oriented x4, but states she does feel weak. Patient denies any chest pain, shortness a breath, lightheadedness, dizziness, syncopal, or near syncopal episodes. Patient states she does have incontinence but denies any dysuria or hematuria. Review of Systems Review of Systems: A 12 point review of systems was completed patient all pertinent positive and negative per HPI the remainder are unremarkable. [facility] Past Medical History Medical History (Updated 10/02/21 @ 18:19 by Pauline Valdez APRN) Anxiety BMI 25.0-25.9,adult BMI 30.0-30.9,adult BMI greater than 30 Chronic constipation Depression Dyspepsia Fracture of proximal end of fibula High ankle sprain of right lower extremity Osteoporosis Screen for colon cancer Urinary tract infection Family History Family History Father Hypertension Cerebrovascular accident Family history of diabetes mellitus in first degree relative Family history of coronary artery disease Diabetes mellitus Heart disease Mother Hypertension Cerebrovascular accident Family history of diabetes mellitus in first degree relative Family history of coronary artery disease Heart disease Sibling Hypertension Family history of diabetes mellitus in first degree relative Other Family history of arthritis Social History Social History Tobacco type: cigarettes Second hand tobacco smoke exposure: Yes Smoking end date: 07/25/84 Alcohol intake: current Substance use: never Substance use type: does not use 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 Gender identity (if verbalized by the patient): Female Meds Home Medications and Allergies Home Medications Medication Instructions Recorded Confirmed Type gabapentin 300 mg capsule 600 mg PO BID #120 cap 09/04/21 10/01/21 Rx plecanatide 3 mg tablet 3 mg PO DAILY #30 tablet 09/14/21 10/01/21 Rx ondansetron HCl 4 mg tablet 4 mg PO Q8H PRN #20 tablet 09/16/21 10/01/21 Rx nitrofurantoin macrocrystal 100 mg 100 mg PO Q12H 7 Days #14 cap 10/01/21 10/01/21 Rx capsule omeprazole 40 mg capsule,delayed 40 mg PO DAILY #30 cap 10/01/21 10/01/21 Rx release vortioxetine 5 mg tablet 5 mg PO DAILY 10/01/21 10/01/21 History Allergies Allergy/AdvReac Type Severity Reaction Status Date / [place]
[2021-10-02] MEDS: SODIUM CHLORIDE 0.9% IV 1,000 ML 100 ML IV CONT (18:00)
--- NOTE | 2021-10-02 18:00 | PC.NURSE ---
This patient, Montse Waters, was admitted to [facility] Surg Room 330-01. Patient/family oriented to hospital policies and general routines including ID bracelet, bed and alarms, visiting hours, pain management, procedures, bathroom and other care routines, personal items, smoking policy, room service/diet, and visiting hours. Report received from Celeste SAUCEDA. Information on how to activate the Rapid Response Team has been discussed. Patient/Family are encouraged to report perceived risks to care and to ask questions if they do not understand what they are told or what they should do.
[2021-10-02 18:04] VITALS: BMI 30.7
[2021-10-02 18:13] VITALS: BP 102/54; PULSE 84; RESP 18; TEMP 36.9; O2SAT 95
[2021-10-02] MEDS: ACETAMINOPHEN 325 MG TABLET 650 MG PO (18:43)
[2021-10-02] MEDS: GABAPENTIN 300 MG CAPSULE 600 MG PO (21:03)
[2021-10-02 22:00] VITALS: BP 114/54; PULSE 91; RESP 18; TEMP 36.6; O2SAT 99
[2021-10-03 06:00] VITALS: BP 108/40; PULSE 91; RESP 18; TEMP 36.9; O2SAT 96
[2021-10-03 06:28] LABS: Basophils Percent Auto 0.3 % (0.2-1.2); Eosinophils Absolute Auto 0.6 K/mm3 (0-0.3); Eosinophils Percent Auto 8.4 % (0-4.4); Hematocrit 34.5 % (37.0-47.0); Hemoglobin 11.3 g/dL (12.0-15.0); Immature Granulocyte Absolute 0.04 K/mm3 (0.00-0.031); Immature Granulocyte Percent A 0.5 % (0-0.5); Lymphocytes Percent Auto 6.7 % (18.3-44.2); Mean Corpuscular HGB Conc 32.8 g/dl (32-36); Mean Corpuscular Hemoglobin 29.4 pg (26-34); Mean Corpuscular Volume 89.8 fl (80-100); Mean Platelet Volume 10.6 fl (7.4-10.4); Monocytes Absolute Auto 0.5 K/mm3 (0.1-0.6); Monocytes Percent Auto 6.7 % (2.6-8.5); Neutrophils Absolute Auto 5.8 K/mm3 (1.3-6.7); Neutrophils Percent Auto 77.4 % (45.5-73.1); Platelet Count Result 230 k/mm3 (150-375); Red Blood Count 3.84 M/mm3 (4.2-5.4); Red Cell Distribution Width 13.5 % (11.5-14.5); White Blood Count 7.5 K/mm3 (4.5-10.0)
[2021-10-03 06:40] LABS: Anion Gap 4 mmol/L (8-16); Blood Urea Nitrogen 16 mg/dL (7-17); Calcium 8.3 mg/dL (8.4-10.2); Carbon Dioxide 25 mmol/L (22-30); Chloride 108 mmol/L (98-107); Estimated CRCL calculation 47 ml/min; Estimated Glomerular Filt Rate > 60; Glucose 107 mg/dL (65-110); Sodium 137 mmol/L (137-145)
[2021-10-03] MEDS: ACETAMINOPHEN 325 MG TABLET 650 MG PO (08:28)
[2021-10-03] MEDS: SODIUM CHLORIDE 0.9% IV 1,000 ML 100 ML IV CONT ×2 (08:31→20:13)
[2021-10-03] MEDS: ENOXAPARIN 40 MG/0.4 ML SYRINGE SUB-Q (08:32)
[2021-10-03] MEDS: GABAPENTIN 300 MG CAPSULE 600 MG PO ×2 (08:33→17:09)
[2021-10-03] MEDS: PANTOPRAZOLE 40 MG TABLET PO ×2 (08:33→17:09)
--- NOTE | 2021-10-03 09:08 | PHAR ---
HOME MED VERIFIED = TRINTELLIX 5 MG IN DENTAL LABORATORY MANAGER PHYSICIAN SAMPLE BOTTLE
[2021-10-03] MEDS: ACETAMINOPHEN/BUTALBITAL/CAFFEINE 325-50-40 MG TABLET (FIORICET) 1 TAB PO (10:03)
--- NOTE | 2021-10-03 10:35 | PM.IMPN ---
Progress Note: A&P Assessment and Plan (1) Urinary tract infection: Qualifiers: Urinary tract infection type: acute cystitis Hematuria presence: without hematuria Qualified Code(s): N30.00 - Acute cystitis without hematuria Code(s): N39.0 - Urinary tract infection, site not specified Status: Acute Assessment and Plan: -Patient does have a new leukocytosis and did have an elevated lactic acid upon initial evaluation in the emergency room. -Patient was febrile with a temperature of a 102.7?. -Patient was placed on ceftriaxone and given IV fluids and has significantly improved. -At this point time will continue with ceftriaxone. -Patient did meet sepsis criteria with fever, tachycardia, leukocytosis, and known source of infection. -Patient did not meet severe sepsis or septic shock so there is no need for 30 mL/kilogram of IV bolus. (2) Sepsis: Code(s): A41.9 - Sepsis, unspecified organism Status: Acute Assessment and Plan: -Patient did meet sepsis criteria with fever, tachycardia, leukocytosis, and known source of infection. -Patient did have an initial elevation of lactic acid at 2.2. -Repeat lactic acid was 0.9. -Patient did not meet severe sepsis or septic shock so there is no need for 30 mL/kilogram of IV bolus. -Patient is doing well at this point time will continue to hydrate and continue with antibiotic therapy. (3) Weakness: Code(s): R53.1 - Weakness Status: Acute Assessment and Plan: -Generalized weakness is most likely secondary to patient's urinary tract infection. -Will have PT/OT to evaluate and treat for generalized weakness. (4) Acute metabolic encephalopathy: Code(s): G93.41 - Metabolic encephalopathy Status: Acute Assessment and Plan: -due to above -no focal deficits -resolved Subjective Date/time seen: 10/03/21 10:35 Interval history: Pt is a 76 yo female w/ hx of history of anxiety, GERD, osteoporosis, frequent urinary tract infections, and chronic constipation admitted for UTI and AMS. Pt is A/Ox4 today. She reports a headache. Also some heartburn at night and is requesting Tums. She is still having dysuria and urinary incontinence. Still feels feverish intermittently. No cp/sob. Review of Systems Review of Systems: All systems reviewed & are unremarkable except as noted in HPI and below Exam Narrative: Constitutional: Patient is well-nourished in no acute distress. Patient is alert and oriented x3 HEENT: Moist mucous membranes. No scleral icterus. Neck: Supple Lungs: Lung sounds are clear to auscultation bilaterally. No accessory muscle use. No rhonchi, rales, or wheezes noted. Cardiovascular: RRR, no murmur Abdomen: Soft, nontender, non distended. No palpable masses. Extremities: No edema. Nontender. Skin: No rashes or lesions. Warm and dry. Skin is intact. Neurological: No focal neurological deficits. Cranial nerves II-XII grossly intact. Psychiatric: Cooperative, appropriate mood, and affect Objective Data Vital Signs Vital Signs: Vital Signs - 24 hr 10/02/21 13:02 10/02/21 16:31 10/02/21 18:13 Temperature 102.7 F H 98.4 F 98.4 F Pulse Rate 112 H 87 84 Respiratory Rate 20 18 18 Blood Pressure 123/69 98/50 L 102/54 L Pulse Oximetry 97 98 95 10/02/21 22:00 10/03/21 06:00 Temperature 97.8 F 98.5 F Pulse Rate 91 91 Respiratory Rate 18 18 Blood Pressure 114/54 L 108/40 L Pulse Oximetry 99 96 Intake/Output Intake/Output: Intake & Output 09/30/21 10/01/21 10/02/21 10/03/21 23:59 23:59 23:59 23:59 Intake Total 1150 1360 Output Total 500 Balance 1150 860 Meds/Results Medications: Active Medications Generic Name Dose Route Start Last Admin Trade Name Freq PRN Reason Stop Dose Admin Acetaminophen 650 mg 10/02/21 16:31 10/03/21 08:28 Acetaminophen 325 Mg Tablet PO 650 mg Q4H PRN Administrat
[2021-10-03 13:25] VITALS: O2SAT 92
[2021-10-03 14:00] VITALS: BP 108/51; PULSE 77; RESP 16; TEMP 36.7; O2SAT 96
[2021-10-03 21:47] VITALS: BP 112/57; PULSE 81; RESP 18; TEMP 36.2; O2SAT 96
--- NOTE | 2021-10-04 01:52 | PC.NURSE ---
Daylight Savings Time For Daylight Savings Time Ending in the Fall - Clocks are moved back. For Daylight Savings Time Beginning in the Spring - Clocks are moved ahead. For [facility], the time of change occurs at 0200 hrs. Time is taken from the dietary server. This entry on the patient's chart recognizes the change in time reflected during documentation. Example: 2 entries for vital signs may be charted for 0200 hrs.
[2021-10-04 05:48] VITALS: BP 105/46; PULSE 76; RESP 18; TEMP 35.8; O2SAT 94
[2021-10-04 06:16] LABS: Basophils Percent Auto 0.7 % (0.2-1.2); Eosinophils Absolute Auto 0.7 K/mm3 (0-0.3); Eosinophils Percent Auto 15.6 % (0-4.4); Hematocrit 31.2 % (37.0-47.0); Immature Granulocyte Absolute 0.03 K/mm3 (0.00-0.031); Immature Granulocyte Percent A 0.7 % (0-0.5); Lymphocytes Absolute Auto 1.11 K/mm3 (0.9-3.2); Lymphocytes Percent Auto 26.2 % (18.3-44.2); Mean Corpuscular HGB Conc 32.1 g/dl (32-36); Mean Corpuscular Hemoglobin 28.9 pg (26-34); Mean Corpuscular Volume 90.2 fl (80-100); Mean Platelet Volume 10.3 fl (7.4-10.4); Monocytes Absolute Auto 0.5 K/mm3 (0.1-0.6); Monocytes Percent Auto 10.6 % (2.6-8.5); Neutrophils Percent Auto 46.2 % (45.5-73.1); Platelet Count Result 193 k/mm3 (150-375); Red Blood Count 3.46 M/mm3 (4.2-5.4); Red Cell Distribution Width 13.7 % (11.5-14.5); White Blood Count 4.2 K/mm3 (4.5-10.0)
[2021-10-04 06:31] LABS: Alanine Aminotransferase 21 U/L (4-35); Albumin Level 2.9 g/dL (3.5-5.1); Alkaline Phosphatase 40 U/L (38-126); Anion Gap 1 mmol/L (8-16); Aspartate Amino Transferase 25 U/L (14-36); Bilirubin,Total 0.3 mg/dL (0.2-1.3); Blood Urea Nitrogen 14 mg/dL (7-17); Calcium 8.2 mg/dL (8.4-10.2); Carbon Dioxide 25 mmol/L (22-30); Chloride 113 mmol/L (98-107); Estimated CRCL calculation 47 ml/min; Estimated Glomerular Filt Rate > 60; Glucose 98 mg/dL (65-110); Sodium 139 mmol/L (137-145)
[2021-10-04] MEDS: PANTOPRAZOLE 40 MG TABLET PO ×2 (08:19→18:46)
[2021-10-04] MEDS: GABAPENTIN 300 MG CAPSULE 600 MG PO ×2 (08:19→18:45)
[2021-10-04] MEDS: ENOXAPARIN 40 MG/0.4 ML SYRINGE SUB-Q (08:19)
--- NOTE | 2021-10-04 10:46 | PM.IMPN ---
Progress Note: A&P Assessment and Plan (1) Urinary tract infection: Qualifiers: Urinary tract infection type: acute cystitis Hematuria presence: without hematuria Qualified Code(s): N30.00 - Acute cystitis without hematuria Code(s): N39.0 - Urinary tract infection, site not specified Status: Acute Assessment and Plan: -Patient does have a new leukocytosis and did have an elevated lactic acid upon initial evaluation in the emergency room. -Patient was febrile with a temperature of a 102.7?. -Patient was placed on ceftriaxone and given IV fluids and has significantly improved. -At this point time will continue with ceftriaxone. -Patient did meet sepsis criteria with fever, tachycardia, leukocytosis, and known source of infection. -Patient did not meet severe sepsis or septic shock so there is no need for 30 mL/kilogram of IV bolus. -she is improving after 1 day of IV abx. Due to failing outpatient treatment with oral abx that were listed on sensitivity report, will plan to give one more day of IV abx then dc home on cefdinir. (2) Sepsis: Code(s): A41.9 - Sepsis, unspecified organism Status: Acute Assessment and Plan: -Patient did meet sepsis criteria with fever, tachycardia, leukocytosis, and known source of infection. -Patient did have an initial elevation of lactic acid at 2.2. -Repeat lactic acid was 0.9. -Patient did not meet severe sepsis or septic shock so there is no need for 30 mL/kilogram of IV bolus. -Patient is doing well at this point time will continue to hydrate and continue with antibiotic therapy. (3) Weakness: Code(s): R53.1 - Weakness Status: Acute Assessment and Plan: -Generalized weakness is most likely secondary to patient's urinary tract infection. -Will have PT/OT to evaluate and treat for generalized weakness. (4) Acute metabolic encephalopathy: Code(s): G93.41 - Metabolic encephalopathy Status: Acute Assessment and Plan: -due to above -no focal deficits -resolved Subjective Date/time seen: 10/04/21 10:46 Interval history: Pt is a 76 yo female w/ hx of history of anxiety, GERD, osteoporosis, frequent urinary tract infections, and chronic constipation admitted for UTI and AMS. Pt is A/Ox4 today. She is feeling better. Symptoms are improving. No N/V/abd pain, cp/sob. Review of Systems Review of Systems: All systems reviewed & are unremarkable except as noted in HPI and below Exam Narrative: Constitutional: Patient is well-nourished in no acute distress. Patient is alert and oriented x3 HEENT: Moist mucous membranes. No scleral icterus. Neck: Supple Lungs: Lung sounds are clear to auscultation bilaterally. No accessory muscle use. No rhonchi, rales, or wheezes noted. Cardiovascular: RRR, no murmur Abdomen: Soft, nontender, non distended. No palpable masses. Extremities: No edema. Nontender. Skin: No rashes or lesions. Warm and dry. Skin is intact. Neurological: No focal neurological deficits. Cranial nerves II-XII grossly intact. Psychiatric: Cooperative, appropriate mood, and affect Objective Data Vital Signs Vital Signs: Vital Signs - 24 hr 10/03/21 13:25 10/03/21 14:00 10/03/21 21:47 Temperature 98.0 F 97.2 F L Pulse Rate 77 81 Respiratory Rate 16 18 Blood Pressure 108/51 L 112/57 L Pulse Oximetry 92 96 96 10/04/21 05:48 Temperature 96.5 F L Pulse Rate 76 Respiratory Rate 18 Blood Pressure 105/46 L Pulse Oximetry 94 Intake/Output Intake/Output: Intake & Output 10/01/21 10/02/21 10/03/21 10/05/21 23:59 23:59 23:59 00:59 Intake Total 1150 4130 370 Output Total 1300 Balance 1150 2830 370 Meds/Results Medications: Active Medications Generic Name Dose Route Start Last Admin Trade Name Freq PRN Reason Stop Dose Admin Acetaminophen 650 mg 10/02/21 16:31 10/03/21 08:28 Acetaminophen 325 Mg
[2021-10-04 14:00] VITALS: BP 121/55; PULSE 75; RESP 18; TEMP 36.1; O2SAT 97
[2021-10-04 20:00] VITALS: PULSE 79; RESP 18; O2SAT 99
[2021-10-04] MEDS: MELATONIN 5 MG TABLET 10 MG PO (21:38)
[2021-10-04 21:43] VITALS: BP 145/60; PULSE 79; RESP 18; TEMP 36.3; O2SAT 99
[2021-10-05 06:00] VITALS: BP 128/57; PULSE 77; RESP 18; TEMP 36.2; O2SAT 96
[2021-10-05 06:32] LABS: Basophils Percent Auto 0.7 % (0.2-1.2); Eosinophils Absolute Auto 0.6 K/mm3 (0-0.3); Eosinophils Percent Auto 13.8 % (0-4.4); Hematocrit 31.6 % (37.0-47.0); Hemoglobin 10.4 g/dL (12.0-15.0); Immature Granulocyte Absolute 0.02 K/mm3 (0.00-0.031); Immature Granulocyte Percent A 0.5 % (0-0.5); Lymphocytes Absolute Auto 1.37 K/mm3 (0.9-3.2); Lymphocytes Percent Auto 33.3 % (18.3-44.2); Mean Corpuscular HGB Conc 32.9 g/dl (32-36); Mean Corpuscular Hemoglobin 30.1 pg (26-34); Mean Corpuscular Volume 91.3 fl (80-100); Mean Platelet Volume 10.3 fl (7.4-10.4); Monocytes Absolute Auto 0.4 K/mm3 (0.1-0.6); Monocytes Percent Auto 9.7 % (2.6-8.5); Neutrophils Absolute Auto 1.7 K/mm3 (1.3-6.7); Platelet Count Result 196 k/mm3 (150-375); Red Blood Count 3.46 M/mm3 (4.2-5.4); Red Cell Distribution Width 13.8 % (11.5-14.5); White Blood Count 4.1 K/mm3 (4.5-10.0)
[2021-10-05 06:38] LABS: Anion Gap 3 mmol/L (8-16); Blood Urea Nitrogen 13 mg/dL (7-17); Calcium 8.4 mg/dL (8.4-10.2); Carbon Dioxide 26 mmol/L (22-30); Chloride 111 mmol/L (98-107); Estimated CRCL calculation 47 ml/min; Estimated Glomerular Filt Rate > 60; Glucose 97 mg/dL (65-110); Potassium 3.8 mmol/L (3.4-5.0); Sodium 140 mmol/L (137-145)
[2021-10-05 08:32] VITALS: O2SAT 92
[2021-10-05] MEDS: GABAPENTIN 300 MG CAPSULE 600 MG PO (08:57)
[2021-10-05] MEDS: PANTOPRAZOLE 40 MG TABLET PO (08:58)
[2021-10-05] MEDS: ENOXAPARIN 40 MG/0.4 ML SYRINGE SUB-Q (08:58)
--- NOTE | 2021-10-05 11:27 | PM.DS ---
DS: Admitting Diagnosis Discharge Date 10/05/21 Admitting Diagnosis UTI DS: Discharge Diagnosis Discharge Diagnosis (1) Urinary tract infection: Qualifiers: Hematuria presence: without hematuria Urinary tract infection type: acute cystitis Qualified Code(s): N30.00 - Acute cystitis without hematuria Code(s): N39.0 - Urinary tract infection, site not specified Status: Acute Assessment and Plan: -Patient did have a new leukocytosis and did have an elevated lactic acid upon initial evaluation in the emergency room. -Patient did not meet severe sepsis or septic shock so there was no need for 30 mL/kilogram of IV bolus. -She did meet however meet sepsis criteria with fever of 102.7, tachycardia, leukocytosis, and known source of infection. -Urine culture susceptible to ceftriaxone -Patient was placed on ceftriaxone and given IV fluids and has since significantly improved -At this point she has received ceftriaxone x 2 days. Will continue outpatient treatment with Cefdinir for a total of 10 days (2) Sepsis: Code(s): A41.9 - Sepsis, unspecified organism Status: Acute Assessment and Plan: -Patient did meet sepsis criteria with fever, tachycardia, leukocytosis, and known source of infection. -Patient did have an initial elevation of lactic acid at 2.2. -Repeat lactic acid was 0.9. -Patient did not meet severe sepsis or septic shock so there is no need for 30 mL/kilogram of IV bolus. -Resolved -Vitals stable, pt non toxic appearing and stable for discharge (3) Weakness: Code(s): R53.1 - Weakness Status: Acute Assessment and Plan: -Generalized weakness is most likely secondary to patient's urinary tract infection. -resolved with IVF and IV abx (4) Acute metabolic encephalopathy: Code(s): G93.41 - Metabolic encephalopathy Status: Acute Assessment and Plan: -due to above -no focal deficits -resolved DS: Summary Hospital Course Reason for hospitalization: Pt is a 76 yo female w/ hx of history of anxiety, GERD, osteoporosis, frequent urinary tract infections, and chronic constipation admitted for UTI and AMS. Please see HPI for further details. Hospital Course: Please see above for details of hospital course. Status at Discharge Cognitive/behavioral status at discharge: stable Functional status at discharge: independent ambulation Time Spent with Patient Time attestation: Total time spent providing and/or coordinating discharge services: 32 Time spent: Greater than 30 minutes Exam Narrative: Constitutional: Patient is well-nourished in no acute distress. Patient is alert and oriented x3 HEENT: Moist mucous membranes. No scleral icterus. Neck: Supple Lungs: Lung sounds are clear to auscultation bilaterally. No accessory muscle use. No rhonchi, rales, or wheezes noted. Cardiovascular: RRR, no murmur Abdomen: Soft, nontender, non distended. No palpable masses. Extremities: No edema. Nontender. Skin: No rashes or lesions. Warm and dry. Skin is intact. Neurological: No focal neurological deficits. Cranial nerves II-XII grossly intact. Psychiatric: Cooperative, appropriate mood, and affect DS: Data Data Completed and Pending Labs on day of discharge: Labs from last 24 hours 10/05/21 10/05/21 06:03 06:03 WBC 4.1 L RBC 3.46 L Hgb 10.4 L Hct 31.6 L MCV 91.3 MCH 30.1 MCHC 32.9 RDW 13.8 Plt Count 196 MPV 10.3 Immature Gran % (Auto) 0.5 Neut % (Auto) 42.0 L Lymph % (Auto) 33.3 Evans % (Auto) 9.7 H Eos % (Auto) 13.8 H Baso % (Auto) 0.7 Lymph # (Auto) 1.37 Evans # (Auto) 0.4 Eos # (Auto) 0.6 H Baso # (Auto) 0.0 Abs Immat Gran (auto) 0.02 Absolute Neuts (auto) 1.7 Absolute Nucleated RBC 0.0 Nucleated RBC % 0.0 Sodium 140 Potassium 3.8 Chloride 111 H Carbon Dioxide 26 Anion Gap 3 L BUN 13 Creatinine
[2021-10-05] MEDS: ACETAMINOPHEN/BUTALBITAL/CAFFEINE 325-50-40 MG TABLET (FIORICET) 1 TAB PO (11:59)
== END 2021-10-05 13:49 | disposition home or self-care (01) | DRG 871 ==
LOC: ANHED 14:12 → ANH3MEDSUR 16:48
PROVIDERS: Emergency Medicine; Nurse Practitioner Adult Health; Physician Assistant; Admitting Provider Internal Medicine; Emergency Provider Emergency Medicine; PCP Family Medicine; Visit Provider Hospitalist
DX: A41.9 Sepsis, unspecified organism (principal); G93.41 Metabolic encephalopathy; N30.00 Acute cystitis without hematuria; R53.1 Weakness; F17.210 Nicotine dependence, cigarettes, uncomplicated; Z79.899 Other long term (current) drug therapy; M81.0 Age-related osteoporosis without current pathological fracture; F32.9 Major depressive disorder, single episode, unspecified; F41.9 Anxiety disorder, unspecified; Z82.49 Family history of ischemic heart disease and other diseases of the circulatory system; Z83.3 Family history of diabetes mellitus; Z82.3 Family history of stroke; R00.0 Tachycardia, unspecified; K21.9 Gastro-esophageal reflux disease without esophagitis; Z87.440 Personal history of urinary (tract) infections
CPT/HCPCS: 36415; 80048; 80053; 81001; 83605; 85025; 87040; 93005; 96361; 96365; 96367; 97161; 97165; 99285; A9270; G0378; J0131; J0696; J1650; J7030

== ENCOUNTER 2021-12-09 00:25 | Day surgery (SDC) | payer MEDICARE, OTHER, SELFPAY ==
[2021-11-30 09:59] VITALS: BMI 30.4
--- NOTE | 2021-12-08 17:15 | PM.HPGS ---
History of Present Illness History of Present Illness Consent: Risks, benefits, and alternatives have been discussed and questions answered. Patient agrees to proceed with procedure. Chief complaint: neoplasm screening Narrative: Montse Waters is a 76 year old female referred for colon cancer screening. Review of Systems Review of Systems: All systems reviewed & are unremarkable except as noted in HPI and below PMFSH Past Medical History Medical History Anxiety BMI 25.0-25.9,adult BMI 30.0-30.9,adult BMI greater than 30 Chronic constipation Depression Dyspepsia Fracture of proximal end of fibula High ankle sprain of right lower extremity Osteoporosis Screen for colon cancer Urinary tract infection Family History Family History Father Diabetes mellitus Heart disease Family history of diabetes mellitus in first degree relative Family history of coronary artery disease Hypertension Cerebrovascular accident Family history of arthritis Mother Heart disease Family history of diabetes mellitus in first degree relative Family history of coronary artery disease Hypertension Cerebrovascular accident Diabetes mellitus Family history of arthritis Sibling Family history of diabetes mellitus in first degree relative Hypertension Family history of arthritis Social History Social History Smoking packs per day: 1 Smoking cigarettes per day: 20.0 Years smoked: 6 Smoking pack-years: 6.00 Smoking status: Former smoker Tobacco type: cigarettes Second hand tobacco smoke exposure: Yes Smoking end date: 07/25/84 Alcohol intake: current Alcohol use details: Holiday[employer] Substance use: never Substance use type: does not use Living arrangements: with family 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 Gender identity (if verbalized by the patient): Female Sexual Orientation (if Verbalized by the Patient): Straight or Heterosexual Spiritual care concerns: No Meds Home Medications and Allergies Home Medications Medication Instructions Recorded Confirmed Type gabapentin 300 mg capsule 600 mg PO BID #120 cap 09/04/21 11/30/21 Rx omeprazole 40 mg capsule,delayed 40 mg PO DAILY #30 cap 10/01/21 11/30/21 Rx release melatonin 10 mg PO HS PRN 10/04/21 11/30/21 History vortioxetine 5 mg tablet 5 mg PO DAILY #90 tablet 10/19/21 11/30/21 Rx ascorbic acid (vitamin C) 500 mg PO DAILY 11/30/21 11/30/21 History calcium carb and citrate-vitD3 1 tablet PO DAILY 11/30/21 11/30/21 History [Citracal-D3 Slow Release] cholecalciferol (vitamin D3) 25 mcg PO DAILY 11/30/21 11/30/21 History [Vitamin D3] duloxetine [Cymbalta] 60 mg PO BID 11/30/21 11/30/21 History [id number] fum-folic ac-om3 1 pkg PO DAILY 11/30/21 11/30/21 History [One Daily ] Allergies Allergy/AdvReac Type Severity Reaction Status Date / Time codeine Allergy Unknown Nausea Verified 12/09/21 06:25 bupropion [From Wellbutrin] AdvReac Severe Other Verified 12/09/21 06:25 Exam Const: General: alert Orientation/consciousness: patient oriented x3 Resp: Auscultation: clear to auscultation bilaterally Cardio: Rhythm: regular rhythm GI: GI Palp: Yes Soft to palpation and No Tenderness to palpation present (GI) Neuro: General: patient oriented x3 Assessment and Plan Assessment and plan (1) Screen for colon cancer: Code(s): Z12.11 - Encounter for screening for malignant neoplasm of colon Status: Acute Assessment and Plan: Colonoscopy with possible biopsy or polypectomy or cautery or injection of substances.
[2021-12-09 06:26] VITALS: BP 152/81; PULSE 98; RESP 20; TEMP 36.3; O2SAT 97; BMI 29.6
[2021-12-09] MEDS: LACTATED RINGERS 1,000 ML 150 ML IV CONT (06:45)
--- NOTE | 2021-12-09 07:11 | WPDANESEPPF ---
Anes - Initial Pre Proc Eval Procedure: Operation Date: 12/09/21 07:30 Proposed Procedures p Screening Colonoscopy - Leonel Tinajero MD Date/Time: 12/09/21 07:11 Surgeon: Leonel Tinajero MD Pre Op Diagnosis: neoplasm screening Patient Data Age: 76 Gender: F Height: 1.55 m Weight: 71.1 kg Last Vital Signs Temp 97.4 F L 12/09/21 06:26 Pulse 98 12/09/21 06:26 Resp 20 12/09/21 06:26 BP 152/81 H 12/09/21 06:26 Pulse Ox 97 12/09/21 06:26 Allergies Allergy/AdvReac Type Severity Reaction Status Date / Time codeine Allergy Unknown Nausea Verified 12/09/21 06:25 bupropion [From Wellbutrin] AdvReac Severe Other Verified 12/09/21 06:25 Home Medications Medication Instructions Recorded Confirmed Type gabapentin 300 mg capsule 600 mg PO BID #120 cap 09/04/21 11/30/21 Rx omeprazole 40 mg capsule,delayed 40 mg PO DAILY #30 cap 10/01/21 11/30/21 Rx release melatonin 10 mg PO HS PRN 10/04/21 11/30/21 History vortioxetine 5 mg tablet 5 mg PO DAILY #90 tablet 10/19/21 11/30/21 Rx ascorbic acid (vitamin C) 500 mg PO DAILY 11/30/21 11/30/21 History calcium carb and citrate-vitD3 1 tablet PO DAILY 11/30/21 11/30/21 History [Citracal-D3 Slow Release] cholecalciferol (vitamin D3) 25 mcg PO DAILY 11/30/21 11/30/21 History [Vitamin D3] duloxetine [Cymbalta] 60 mg PO BID 11/30/21 11/30/21 History [id number] fum-folic ac-om3 1 pkg PO DAILY 11/30/21 11/30/21 History [One Daily ] Patient hx anesthesia problems: none Family hx anesthesia problems: none Results Review: All pre-operative results and documents have been reviewed as part of the pre-operative evaluation. [facility] Past Medical History Medical History Anxiety BMI 25.0-25.9,adult BMI 30.0-30.9,adult BMI greater than 30 Chronic constipation Depression Dyspepsia Fracture of proximal end of fibula High ankle sprain of right lower extremity Osteoporosis Screen for colon cancer Urinary tract infection Family History Family History Father Diabetes mellitus Heart disease Family history of diabetes mellitus in first degree relative Family history of coronary artery disease Hypertension Cerebrovascular accident Family history of arthritis Mother Heart disease Family history of diabetes mellitus in first degree relative Family history of coronary artery disease Hypertension Cerebrovascular accident Diabetes mellitus Family history of arthritis Sibling Family history of diabetes mellitus in first degree relative Hypertension Family history of arthritis Social History Social History Smoking packs per day: 1 Smoking cigarettes per day: 20.0 Years smoked: 6 Smoking pack-years: 6.00 Smoking status: Former smoker Tobacco type: cigarettes Second hand tobacco smoke exposure: Yes Smoking end date: 07/25/84 Alcohol intake: current Alcohol use details: iday's Substance use: never Substance use type: does not use Living arrangements: with family 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 Gender identity (if verbalized by the patient): Female Sexual Orientation (if Verbalized by the Patient): Straight or Heterosexual Spiritual care concerns: No Anes - Eval Final PreProcedure Day of Procedure 12/09/21 07:11 Patient weight: overweight Heart: regular rate and rhythm Lungs: clear to auscultation Airway: Mallampati scale class II Neurological: alert and oriented Last oral intake: >/= 8 hours ASA classification: II Emergent: no Anesthetic plan: proceed Anesthesia type and monitoring: general GIVS and standard monitoring Results Review: All pre-operative results and documents have been reviewed as part of the pre-operative evaluation. Informed Consent: The leif
[2021-12-09 07:46] VITALS: BP 94/39; PULSE 76; RESP 17; O2SAT 94
[2021-12-09 07:56] VITALS: BP 113/47; PULSE 77; RESP 16; O2SAT 100
[2021-12-09 08:06] VITALS: BP 130/59; PULSE 66; RESP 20; O2SAT 100
== END 2021-12-09 08:13 | disposition home or self-care (01) ==
PROVIDERS: PCP Family Medicine; Visit Provider Internal Medicine Gastroenterology
PROC: 0DJD8ZZ Inspection of Lower Intestinal Tract, Via Natural or Artificial Opening Endoscopic (ICD-10-PCS; CPT 45378; principal; 2021-12-09 07:30)
DX: Z12.11 Encounter for screening for malignant neoplasm of colon (principal); F41.8 Other specified anxiety disorders; M81.0 Age-related osteoporosis without current pathological fracture; K59.09 Other constipation; Z87.891 Personal history of nicotine dependence
CPT/HCPCS: G0121; J2704; J7120

== ENCOUNTER 2022-03-05 22:00 | Inpatient (IN) | payer MEDICARE, OTHER, SELFPAY ==
--- NOTE | ~2022-03-05 | XR_ITS ---
XR chest 1V portable 03/05/2022 22:37 Indication: Fever and weakness Procedure: AP portable chest Comparison: 09/29/2021 Findings: Heart size normal. Bilateral interstitial infiltrates may represent mild edema or atypical pneumonia. No pleural effusion or pneumothorax. No acute osseous abnormality. Impression: 1: Bilateral interstitial infiltrates, mild edema versus atypical pneumonia. Reviewed, dictated and finalized at location A. Impression: 1: Bilateral interstitial infiltrates, mild edema versus atypical pneumonia.
--- NOTE | ~2022-03-05 | CT_ITS ---
EXAMINATION: CT diagnostic chest wo con DATE: 03/06/2022 12:44 INDICATION: Possible pneumonia. Shortness of breath. TECHNIQUE: Computed tomography (CT) of the chest was performed without intravenous contrast. The dose -length product was 380.94 mGy-cm. Automated exposure control and iterative reconstruction technique were employed. COMPARISON: Chest x-ray dated 03/05/2022 FINDINGS: No thoracic lymphadenopathy. There is atherosclerosis of the aorta. No significant pericard ial effusion. There is dependent atelectasis. Trace pleural effusions. Interstitial infiltrates noted on prior chest x-ray are likely related to expiratory imaging without corresponding findings on CT e xamination. No endobronchial lesions. There are a few small 1-2 mm nodules in the upper lobes, likely benign. 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 Nodular appearance to both breasts. Consider correlation with bilateral mammogram. No pneumothorax. No focal airspace consolidation. Mild thoracic spondylosis. IMPRESSION: 1. Trace pleural effusions with dependent atelectasis. 2: Nodular appearance to both breasts. Recommend correlation with mammogram if a recent mammogram has not been performed. 3: Small 1-2 mm nodules in the upper lobes, likely benign. Reviewed, dictated and finalized at location A.
[2022-03-05 21:58] VITALS: BP 118/61; PULSE 96; RESP 28; TEMP 38.4; O2SAT 94
--- NOTE | 2022-03-05 22:10 | ED.WEAKNESS ---
HPI - Weakness General Chief complaint: Weakness <Stephanie Whitmore PA-C - Last Filed: 03/06/22 00:02> Stated complaint: UTI SYMPTOMS, WEAKNESS <Stephanie Whitmore PA-C - Last Filed: 03/06/22 00:02> Time Seen by Provider: 03/05/22 22:03 <Stephanie Whitmore PA-C - Last Filed: 03/06/22 00:02> Source: patient <JESSICA Baker Last Filed: 03/06/22 00:02> Mode of arrival: EMS <JESSICA Baker Last Filed: 03/06/22 00:02> Limitations: no limitations <JESSICA Baker Last Filed: 03/06/22 00:02> History of Present Illness HPI Narrative: This is a 76 year old female that presents to the ER for generalized weakness. Reports she currently has a UTI and is taking Macrobid. Reports fever, dysuria and frequency ongoing over the last two days. Denies vomiting or hematuria. <Stephanie Whitmore PA-C - Last Filed: 03/06/22 00:02> Related Data Home medications: Home Medications Medication Instructions Recorded Confirmed melatonin 10 mg tablet 10 mg PO HS PRN Sleep 10/04/21 01/29/22 ascorbic acid (vitamin C) 500 mg 500 mg PO DAILY 11/30/21 01/29/22 tablet calcium carb,cit ER 600 mg-vit D3 1 tablet PO DAILY 11/30/21 01/29/22 12.5 mcg (500 unit) tablet,ext.rel (Citracal-D3 Slow Release) cholecalciferol (vitamin D3) 25 25 mcg PO DAILY 11/30/21 01/29/22 mcg (1,000 unit) tablet (Vitamin D3) vits 75-iron 28 mg-folic 1 pkg PO DAILY 11/30/21 01/29/22 acid 800 mcg-omega3 440 mg oral pack (One Daily ) duloxetine 60 mg capsule,delayed 60 mg PO DAILY 12/10/21 01/29/22 release (Cymbalta) [id number] See Rx Instructions PO .COMPLEX 01/28/22 01/28/22 36,000-114,000-180,000 unit capsule,delay rel (Creon) <Stephanie Whitmore PA-C - Last Filed: 03/06/22 00:02> Allergies/Adverse reactions: Allergies Allergy/AdvReac Type Severity Reaction Status Date / Time codeine Allergy Unknown Nausea Verified 03/05/22 22:32 bupropion [From Wellbutrin] AdvReac Severe Other Verified 03/05/22 22:32 <Stephanie Whitmore PA-C - Last Filed: 03/06/22 00:02> [facility] Past Medical History Medical History: Medical History (Updated 03/06/22 @ 00:02 by Stephanie Whitmore PA-C) Anxiety BMI 25.0-25.9,adult BMI 28.0-28.9,adult BMI 29.0-29.9,adult BMI 30.0-30.9,adult BMI greater than 30 Chronic constipation Depression Dyspepsia Fracture of proximal end of fibula High ankle sprain of right lower extremity Osteoporosis Screen for colon cancer Urinary tract infection <Stephanie Whitmore PA-C - Last Filed: 03/06/22 00:02> Family History Family History: Family History Father Diabetes mellitus Heart disease Family history of diabetes mellitus in first degree relative Family history of coronary artery disease Hypertension Cerebrovascular accident Family history of arthritis Mother Heart disease Family history of diabetes mellitus in first degree relative Family history of coronary artery disease Hypertension Cerebrovascular accident Diabetes mellitus Family history of arthritis Sibling Family history of diabetes mellitus in first degree relative Hypertension Family history of arthritis <Stephanie Whitmore PA-C - Last Filed: 03/06/22 00:02> Social History Social History: Social History Smoking packs per day: 1 Smoking cigarettes per day: 20.0 Years smoked: 6 Smoking pack-years: 6.00 Smoking status: Former smoker Tobacco type: cigarettes Second hand tobacco smoke exposure: Yes Smoking end date: 07/25/84 Alcohol intake: current Alcohol use details: [employer] Substance use: never Substance use type: does not use 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 Gender identity (if verbalized by the patient): Female Sexual Orientation (if Rebeca
[2022-03-05 22:38] LABS: Basophils Percent Auto 0.2 % (0.2-1.2); Eosinophils Percent Auto 0.3 % (0-4.4); Hematocrit 36.7 % (37.0-47.0); Hemoglobin 11.8 g/dL (12.0-15.0); Immature Granulocyte Absolute 0.08 K/mm3 (0.00-0.031); Immature Granulocyte Percent A 0.6 % (0-0.5); Lymphocytes Absolute Auto 0.43 K/mm3 (0.9-3.2); Lymphocytes Percent Auto 3.3 % (18.3-44.2); Mean Corpuscular HGB Conc 32.2 g/dl (32-36); Mean Corpuscular Hemoglobin 29.1 pg (26-34); Mean Corpuscular Volume 90.4 fl (80-100); Mean Platelet Volume 10.7 fl (7.4-10.4); Monocytes Absolute Auto 0.6 K/mm3 (0.1-0.6); Monocytes Percent Auto 4.4 % (2.6-8.5); Neutrophils Absolute Auto 11.8 K/mm3 (1.3-6.7); Neutrophils Percent Auto 91.2 % (45.5-73.1); Platelet Count Result 249 k/mm3 (150-375); Red Blood Count 4.06 M/mm3 (4.2-5.4); Red Cell Distribution Width 14.4 % (11.5-14.5); White Blood Count 12.9 K/mm3 (4.5-10.0)
[2022-03-05 22:48] LABS: INR 1.2; Prothrombin Time 14.5 Seconds (11.1-14.7)
[2022-03-05 22:51] LABS: Alveolar/Arterial O2 Gradient 39.1 mmHg; Base Excess ABG 2.6 mEq/l (+/-2.0); Device ROOM AIR; Fractional Inspired Oxygen 21 %; HCO3 ABG 26.1 mEq/l (22.0-26.0); Methemoglobin ABG 0.1 %THb (0-1.5); Modified Allen's Test Pass; Oxygen Content ABG 15.8 %vol (16.0-22.0); Oxygen Saturation ABG 94.5 % (95.0-100.0); Oxyhemoglobin 93.5 % THb (90.0-100.0); PCO2 ABG 36.5 mmHg (35.0-45.0); PO2 ABG 66.9 mmHg (80.0-100.0); PO2 FiO2 Ratio Arterial Blood 3.19 %; Reduced Hemoglobin 6.4 %THb (0-5.0); Site Drawn LEFT RADIAL; pH ABG 7.472 (7.350-7.450)
[2022-03-05 23:01] LABS: Lactic Acid Reflex 1.6 mmol/L (0.7-2.0)
[2022-03-05 23:02] LABS: Alanine Aminotransferase 15 U/L (6-35); Alkaline Phosphatase 51 U/L (38-126); Anion Gap 10 mmol/L (8-16); Aspartate Amino Transferase 23 U/L (14-36); Blood Urea Nitrogen 25 mg/dL (7-17); Calcium 9.1 mg/dL (8.4-10.2); Carbon Dioxide 24 mmol/L (22-30); Chloride 99 mmol/L (98-107); Estimated CRCL calculation 37 ml/min; Estimated Glomerular Filt Rate 54; Glucose 131 mg/dL (65-110); Potassium 3.9 mmol/L (3.4-5.0); Sodium 133 mmol/L (137-145)
[2022-03-05 23:06] LABS: Appearance Urine Clear (Clear); Bilirubin Urine 1+ (Negative); Blood Urine Negative (Negative); Color Urine Yellow (Yellow); Glucose Urine UA Negative (Negative); Ketones Urine 2+ mg/dL (Negative); Leukocyte Esterase Ur Trace LEU/UL (Negative); Nitrate Urine Negative (Negative); Protein Urine 1+ mg/dL (Negative); Specific Grav Ur 1.025 (1.001-1.035); Urobilinogen Urine 0.2 mg/dL (<2.0); pH Urine 5.5 (5.0-9.0)
[2022-03-05 23:10] LABS: NT Pro B Type Natriuretic Pept 1900 pg/mL (5-100)
[2022-03-05 23:14] LABS: Influenza A QL RT-PCR Negative (Negative); Influenza B QL RT-PCR Negative (Negative); SARS-CoV-2 RNA PCR Negative
[2022-03-05 23:15] LABS: Mucus Urine Rare /lpf; Squamous Epithelial Cell Urine Rare /hpf (Few); WBC Urine 31-50 /hpf
[2022-03-05 23:18] LABS: Add Urine Microscopic? YES
[2022-03-05 23:30] VITALS: O2SAT 90
[2022-03-05 23:39] VITALS: BP 113/57; PULSE 84; RESP 20; TEMP 37.5; O2SAT 95
--- NOTE | 2022-03-05 23:39 | PM.IMHP ---
H&P: HPI History of Present Illness Date/Time: 03/05/22 23:39 Chief Complaint: altered mental status Narrative: This is a 76-year-old female with past medical history significant for pancreatic insufficiency, GERD, depression. Patient presented to emergency room via EMS due to generalized weakness rigors, shivering, chills, fevers subjective, had been seen the day before and was found to have urinary tract infection on and sent home on Macrobid however patient progressively got worse with generalized malaise, obtundation , poor per oral intake, pain and burning with urination, urinary frequency and urgency. patient had no cough, sputum production nor shortness of breath. Most of the history has been obtained from who is at bedside patient is obtunded and lethargic unable to participate in history taking. In emergency room patient was found to have an oxygen saturation of 90% and was placed on 2 L of supplemental oxygen by nasal cannula which increased her oxygen saturation to 95%. Preliminary workup was significant for WBC 12 cells and urinalysis with numerous WBCs present, ABG showed a PO2 of 66, chest x-ray was significant for: 1: Bilateral interstitial infiltrates, mild edema versus atypical pneumonia. patient receive ceftriaxone in the emergency room. Patient is been admitted for further evaluation management and treatment. Review of Systems Review of Systems: ROS unobtainable: Yes unobtainable due to mental status ( obtundation, lethargy) [facility] Past Medical History Medical History (Updated 03/06/22 @ 01:50 by Quinton Parker MD) Anxiety BMI 25.0-25.9,adult BMI 28.0-28.9,adult BMI 29.0-29.9,adult BMI 30.0-30.9,adult BMI greater than 30 Chronic constipation Depression Dyspepsia Fracture of proximal end of fibula High ankle sprain of right lower extremity Osteoporosis Screen for colon cancer Urinary tract infection Family History Family History Father Diabetes mellitus Heart disease Family history of diabetes mellitus in first degree relative Family history of coronary artery disease Hypertension Cerebrovascular accident Family history of arthritis Mother Heart disease Family history of diabetes mellitus in first degree relative Family history of coronary artery disease Hypertension Cerebrovascular accident Diabetes mellitus Family history of arthritis Sibling Family history of diabetes mellitus in first degree relative Hypertension Family history of arthritis Social History Social History Smoking packs per day: 1 Smoking cigarettes per day: 20.0 Years smoked: 6 Smoking pack-years: 6.00 Smoking status: Former smoker Tobacco type: cigarettes Second hand tobacco smoke exposure: Yes Smoking end date: 07/25/84 Alcohol intake: current Alcohol use details: [employer] Substance use: never Substance use type: does not use 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 Gender identity (if verbalized by the patient): Female Sexual Orientation (if Verbalized by the Patient): Straight or Heterosexual Spiritual care concerns: No Meds Home Medications and Allergies Home Medications Medication Instructions Recorded Confirmed Type gabapentin 300 mg capsule 600 mg PO BID #120 caps 09/04/21 01/29/22 Rx melatonin 10 mg tablet 10 mg PO HS PRN Sleep 10/04/21 01/29/22 History ascorbic acid (vitamin C) 500 mg 500 mg PO DAILY 11/30/21 01/29/22 History tablet calcium carb,cit ER 600 mg-vit D3 1 tablet PO DAILY 11/30/21 01/29/22 History 12.5 mcg (500 unit) tablet,ext.rel (Citracal-D3 Slow Release) cholecalciferol (vitamin D3) 25 25 mcg PO DAILY 11/30/21 01/29/22 History mcg (1,000 unit) tablet (Vitamin D3) vits 75-iron 28 mg-folic 1 pkg PO DAILY 11/30/21 01/29/22 History acid 8
[2022-03-05 23:40] VITALS: O2SAT 95
[2022-03-06] VITALS (8 sets, daily range): BP systolic 108–116; BP diastolic 55–74; PULSE 70–99; RESP 16–18; TEMP 36.6; O2SAT 96–99; BMI 30.9
--- NOTE | 2022-03-06 01:13 | ADMGEN ---
This patient, Montse Waters, was admitted to Medical Room 343-01. Patient/family oriented to hospital policies and general routines including ID bracelet, bed and alarms, visiting hours, pain management, procedures, bathroom and other care routines, personal items, smoking policy, room service/diet, and visiting hours. Information on how to activate the Rapid Response Team has been discussed. Patient/Family are encouraged to report perceived risks to care and to ask questions if they do not understand what they are told or what they should do.
--- NOTE | 2022-03-06 10:08 | PM.IMPN ---
Progress Note: A&P Assessment and Plan (1) Acute UTI: Code(s): N39.0 - Urinary tract infection, site not specified Status: Acute (2) Infiltrate of lung present on chest x-ray: Code(s): R91.8 - Other nonspecific abnormal finding of lung field Status: Acute (3) Generalized weakness: Code(s): R53.1 - Weakness Status: Acute (4) Acute respiratory failure with hypoxia: Code(s): J96.01 - Acute respiratory failure with hypoxia Status: Acute (5) Hereditary and idiopathic neuropathy, unspecified: Code(s): G60.9 - Hereditary and idiopathic neuropathy, unspecified Status: Acute (6) GERD (gastroesophageal reflux disease): Qualifiers: Esophagitis presence: without esophagitis Qualified Code(s): K21.9 - Gastro-esophageal reflux disease without esophagitis Code(s): K21.9 - Gastro-esophageal reflux disease without esophagitis Status: Acute (7) Raynaud's disease without gangrene: Code(s): I73.00 - Raynaud's syndrome without gangrene Status: Acute Plan 03/05/22 ?patient receive ceftriaxone in the emergency room ?currently on Zosyn plus azithromycin ?await cultures ?early goal-directed therapy? in progress ?resp failure likely secondary to acute illness ?supportive care ?continue oxygen supplementation 03/06/22 pt w UTI symptoms and Postive cultue of Ecoli sensitive to rocephin Ct chest to further assess PNA?? Rocephin/Azithro atypical PNA tests ordered am labs LOS anticipated to be 24-48 more hours Subjective Date/time seen: 03/06/22 10:08 pt doing ok does not report any resp symptoms recently, feeling better back to baseline mental status bedside and agrees Review of Systems Review of Systems: All systems reviewed & are unremarkable except as noted in HPI and below Exam Narrative: GEN: NAD, AAOx3, cooperative HEENT: NCAT, MMM, EOMI Neck: no JVD Heart: S1S2 RRR Lungs: CTA B/l Abd: soft, NT, ND, bowel sounds normoactive Ext: moves all, no cyanosis, no clubbing, no edema Neuro: normal cognition, moves all extremities equally, CN intact Psych: mood and affect congruent Objective Data Vital Signs Vital Signs: Vital Signs - 24 hr 03/05/22 21:58 08/12/22 23:39 03/05/22 23:30 Temperature 101.2 F H 99.5 F Pulse Rate 96 84 Respiratory Rate 28 H 20 Blood Pressure 118/61 113/57 L Pulse Oximetry 94 95 90 Oxygen Delivery Room Air Room Air Oxygen Flow Rate 03/05/22 23:40 03/06/22 01:02 03/06/22 01:55 Temperature 97.9 F Pulse Rate 83 Respiratory Rate 18 Blood Pressure 110/74 Pulse Oximetry 95 96 Oxygen Delivery Nasal Cannula Oxygen Flow Rate 2 03/06/22 04:46 Temperature 97.8 F Pulse Rate 70 Respiratory Rate 18 Blood Pressure 108/55 L Pulse Oximetry 99 Oxygen Delivery Oxygen Flow Rate Intake/Output Intake/Output: Intake & Output 03/03/22 03/04/22 03/05/22 03/06/22 23:59 23:59 23:59 23:59 Intake Total 150 300 Balance 150 300 Meds/Results Medications: Active Medications Generic Name Dose Route Start Last Admin Trade Name Freq PRN Reason Stop Dose Admin Acetaminophen 1,000 mg in 100 mls @ 400 mls/hr 03/05/22 23:55 03/06/22 09:42 Ofirmev 1,000 Mg Ivpb IVPB 03/06/22 23:54 400 mls/hr Q6H PRN Administration Mild Pain (1-3) or Fever Azithromycin 500 mg in 250 mls @ 250 mls/hr 03/06/22 03:00 03/06/22 04:15 Zithromax IVPB Infused 2200 KEESHA Infusion Piperacillin Sod/Tazobactam Sod 2.25 gm in 50 mls @ 100 mls/hr 03/06/22 02:00 03/06/22 08:38 Zosyn 2.25 Gm/D5w 50 Ml IVPB 100 mls/hr Q6H KEESHA Administration Radiology Results: ITS Impressions Chest X-Ray 03/05/22 22:42 Impression: 1: Bilateral interstitial infiltrates, mild edema versus atypical pneumonia. Labs Labs: Laboratory Results - last 24 hr 03/05/22 03/05/22 03/05/22 22:22 22:22 22:23 WBC 12.9 H RBC 4.06 L Hgb 11.8 L Hc
[2022-03-06 12:20] LABS: Basophils Percent Auto 0.3 % (0.2-1.2); Eosinophils Absolute Auto 0.3 K/mm3 (0-0.3); Eosinophils Percent Auto 2.5 % (0-4.4); Hematocrit 36.8 % (37.0-47.0); Hemoglobin 11.5 g/dL (12.0-15.0); Immature Granulocyte Absolute 0.03 K/mm3 (0.00-0.031); Immature Granulocyte Percent A 0.3 % (0-0.5); Lymphocytes Absolute Auto 0.29 K/mm3 (0.9-3.2); Lymphocytes Percent Auto 2.8 % (18.3-44.2); Mean Corpuscular HGB Conc 31.3 g/dl (32-36); Mean Corpuscular Hemoglobin 28.6 pg (26-34); Mean Corpuscular Volume 91.5 fl (80-100); Mean Platelet Volume 10.3 fl (7.4-10.4); Monocytes Absolute Auto 0.4 K/mm3 (0.1-0.6); Monocytes Percent Auto 3.8 % (2.6-8.5); Neutrophils Absolute Auto 9.3 K/mm3 (1.3-6.7); Neutrophils Percent Auto 90.3 % (45.5-73.1); Platelet Count Result 253 k/mm3 (150-375); Red Blood Count 4.02 M/mm3 (4.2-5.4); Red Cell Distribution Width 14.5 % (11.5-14.5); White Blood Count 10.3 K/mm3 (4.5-10.0)
[2022-03-06 12:32] LABS: Amphetamine Screen Urine Negative (Negative); Barbiturate Screen Urine Negative (Negative); Benzodiazepines Screen Urine Negative (Negative); Cannabinoid Screen Urine Negative (Negative); Cocaine Screen Urine Negative (Negative); Methadone Screen Urine Negative (Negative); Opiate Screen Urine Negative (Negative); Phencyclidine Screen Urine Negative (Negative)
[2022-03-06 12:38] LABS: Alanine Aminotransferase 17 U/L (6-35); Albumin Level 4.1 g/dL (3.5-5.1); Alkaline Phosphatase 54 U/L (38-126); Anion Gap 10 mmol/L (8-16); Aspartate Amino Transferase 22 U/L (14-36); Blood Urea Nitrogen 28 mg/dL (7-17); Calcium 9.2 mg/dL (8.4-10.2); Carbon Dioxide 25 mmol/L (22-30); Chloride 102 mmol/L (98-107); Estimated CRCL calculation 35 ml/min; Estimated Glomerular Filt Rate 48; Glucose 111 mg/dL (65-110); Potassium 3.8 mmol/L (3.4-5.0); Sodium 137 mmol/L (137-145)
--- NOTE | 2022-03-06 12:40 | PCOTNOTE ---
Attempted to see patient for OT evaluation. Pt off floor for testing. Will continue to attempt.
[2022-03-07] VITALS (10 sets, daily range): BP systolic 132–178; BP diastolic 67–85; PULSE 83–99; RESP 14–18; TEMP 35.8–36.5; O2SAT 94–98
[2022-03-07 06:29] LABS: Basophils Percent Auto 0.4 % (0.2-1.2); Eosinophils Absolute Auto 0.3 K/mm3 (0-0.3); Eosinophils Percent Auto 4.4 % (0-4.4); Hemoglobin 11.6 g/dL (12.0-15.0); Immature Granulocyte Absolute 0.03 K/mm3 (0.00-0.031); Immature Granulocyte Percent A 0.5 % (0-0.5); Lymphocytes Absolute Auto 0.92 K/mm3 (0.9-3.2); Lymphocytes Percent Auto 16.2 % (18.3-44.2); Mean Corpuscular HGB Conc 32.2 g/dl (32-36); Mean Corpuscular Hemoglobin 29.6 pg (26-34); Mean Corpuscular Volume 91.8 fl (80-100); Mean Platelet Volume 11.6 fl (7.4-10.4); Monocytes Absolute Auto 0.4 K/mm3 (0.1-0.6); Monocytes Percent Auto 7.4 % (2.6-8.5); Neutrophils Percent Auto 71.1 % (45.5-73.1); Platelet Count Result 246 k/mm3 (150-375); Red Blood Count 3.92 M/mm3 (4.2-5.4); Red Cell Distribution Width 14.6 % (11.5-14.5); White Blood Count 5.7 K/mm3 (4.5-10.0)
[2022-03-07 06:35] LABS: Anion Gap 9 mmol/L (8-16); Blood Urea Nitrogen 27 mg/dL (7-17); Calcium 9.1 mg/dL (8.4-10.2); Carbon Dioxide 26 mmol/L (22-30); Chloride 101 mmol/L (98-107); Estimated CRCL calculation 42 ml/min; Estimated Glomerular Filt Rate > 60; Glucose 111 mg/dL (65-110); Magnesium 1.9 mg/dL (1.6-2.3); Potassium 3.8 mmol/L (3.4-5.0); Sodium 136 mmol/L (137-145)
--- NOTE | 2022-03-07 13:12 | PM.IMPN ---
Progress Note: A&P Assessment and Plan (1) Acute UTI: Code(s): N39.0 - Urinary tract infection, site not specified Status: Acute (2) Infiltrate of lung present on chest x-ray: Code(s): R91.8 - Other nonspecific abnormal finding of lung field Status: Acute (3) Generalized weakness: Code(s): R53.1 - Weakness Status: Acute (4) Acute respiratory failure with hypoxia: Code(s): J96.01 - Acute respiratory failure with hypoxia Status: Acute (5) Hereditary and idiopathic neuropathy, unspecified: Code(s): G60.9 - Hereditary and idiopathic neuropathy, unspecified Status: Acute (6) GERD (gastroesophageal reflux disease): Qualifiers: Esophagitis presence: without esophagitis Qualified Code(s): K21.9 - Gastro-esophageal reflux disease without esophagitis Code(s): K21.9 - Gastro-esophageal reflux disease without esophagitis Status: Acute (7) Raynaud's disease without gangrene: Code(s): I73.00 - Raynaud's syndrome without gangrene Status: Acute Plan 03/05/22 ?patient receive ceftriaxone in the emergency room ?currently on Zosyn plus azithromycin ?await cultures ?early goal-directed therapy? in progress ?resp failure likely secondary to acute illness ?supportive care ?continue oxygen supplementation 03/06/22 pt w UTI symptoms and Postive cultue of Ecoli sensitive to rocephin Ct chest to further assess PNA?? Rocephin/Azithro atypical PNA tests ordered am labs LOS anticipated to be 24-48 more hours 03/07/22 Leukocytosis has resolved cont abx Restart home medications Monitor overnight Anticipate discharge home tomorrow patient feeling better Subjective Date/time seen: 03/07/22 13:12 pt states that she does not feel well her home medications have not been given to her. med rec reviewed w pt and Cymbalta and Gabapentin continued. Overnight had poor interaction w RN. Reported MONTIEL and was told it was to late to get medications. Pt advised I will speak w staff to be more diligent in her care. Review of Systems Review of Systems: All systems reviewed & are unremarkable except as noted in HPI and below Exam Narrative: GEN: NAD, AAOx3, cooperative HEENT: NCAT, MMM, EOMI Neck: no JVD Heart: S1S2 RRR Lungs: CTA B/l Abd: soft, NT, ND, bowel sounds normoactive Ext: moves all, no cyanosis, no clubbing, no edema Neuro: normal cognition, moves all extremities equally, CN intact Psych: mood and affect congruent depressed Objective Data Vital Signs Vital Signs: Vital Signs - 24 hr 03/06/22 14:11 03/06/22 15:07 03/06/22 21:45 Temperature 98 F 97.9 F Pulse Rate 89 96 Respiratory Rate 16 18 Blood Pressure 109/60 116/61 Pulse Oximetry 99 97 Oxygen Delivery Room Air 03/06/22 20:00 03/07/22 00:00 03/06/22 21:48 Temperature Pulse Rate 99 94 Respiratory Rate Blood Pressure Pulse Oximetry Oxygen Delivery Room Air 03/07/22 04:06 03/07/22 05:26 03/07/22 07:48 Temperature 97.2 F L Pulse Rate 94 86 90 Respiratory Rate 16 Blood Pressure 132/67 Pulse Oximetry 98 94 Oxygen Delivery Room Air 03/07/22 08:00 03/07/22 08:00 03/07/22 11:11 Temperature 96.5 F L Pulse Rate 89 99 Respiratory Rate 18 Blood Pressure 178/85 H Pulse Oximetry 96 Oxygen Delivery Room Air 03/07/22 12:05 Temperature Pulse Rate 91 Respiratory Rate Blood Pressure Pulse Oximetry Oxygen Delivery Intake/Output Intake/Output: Intake & Output 03/04/22 03/05/22 03/06/22 03/07/22 23:59 23:59 23:59 23:59 Intake Total 150 1470 690 Balance 150 1470 690 Meds/Results Medications: Active Medications Generic Name Dose Route Start Last Admin Trade Name Freq PRN Reason Stop Dose Admin Azithromycin 500 mg in 250 mls @ 250 mls/hr 03/06/22 03:00 03/06/22 22:48 Zithromax IVPB Infused 2200 KEESHA Infusion Ceftriaxone Sodium/Dextrose 1 gm in 50 mls @ 100 mls/hr
[2022-03-07] MEDS: DULoxetine HCL 60 MG CAPSULE.DR PO (13:45)
[2022-03-07] MEDS: GABAPENTIN 300 MG CAPSULE 600 MG PO (17:06)
[2022-03-07] MEDS: ACETAMINOPHEN 325 MG TABLET 650 MG PO (21:07)
[2022-03-07] MEDS: PANTOPRAZOLE 40 MG TABLET PO (21:08)
[2022-03-08 05:58] VITALS: BP 132/66; PULSE 76; RESP 16; TEMP 37.1; O2SAT 97
[2022-03-08] MEDS: ASCORBIC ACID 500 MG TABLET PO (08:12)
[2022-03-08] MEDS: GABAPENTIN 300 MG CAPSULE 600 MG PO (08:12)
[2022-03-08] MEDS: PANTOPRAZOLE 40 MG TABLET PO (08:13)
[2022-03-08] MEDS: MULTIVIT/MIN/PREN/FOL AC/IRON TABLET 1 TAB PO (08:13)
[2022-03-08] MEDS: DULoxetine HCL 60 MG CAPSULE.DR PO (08:13)
[2022-03-08] MEDS: CHOLECALCIFEROL 1,000 UNITS TABLET 1000 UNITS PO (08:13)
--- NOTE | 2022-03-08 12:41 | PM.DS ---
DS: Admitting Diagnosis Discharge Date 03/08/22 Admitting Diagnosis (1) Acute UTI: (2) Infiltrate of lung present on chest x-ray: (3) Generalized weakness: ? ? (4) Acute respiratory failure with hypoxia: ? ? ? (5) Hereditary and idiopathic neuropathy, unspecified: ? (6) GERD (gastroesophageal reflux disease): ? ? ? (7) Raynaud's disease without gangrene: DS: Discharge Diagnosis Discharge Diagnosis (1) E-coli UTI: Code(s): N39.0 - Urinary tract infection, site not specified; B96.20 - Unspecified Escherichia coli [E. coli] as the cause of diseases classified elsewhere Status: Acute (2) Generalized weakness: Code(s): R53.1 - Weakness Status: Acute (3) Acute respiratory failure with hypoxia: Code(s): J96.01 - Acute respiratory failure with hypoxia Status: Acute (4) Hereditary and idiopathic neuropathy, unspecified: Code(s): G60.9 - Hereditary and idiopathic neuropathy, unspecified Status: Acute (5) Raynaud's disease without gangrene: Code(s): I73.00 - Raynaud's syndrome without gangrene Status: Acute (6) GERD (gastroesophageal reflux disease): Qualifiers: Esophagitis presence: without esophagitis Qualified Code(s): K21.9 - Gastro-esophageal reflux disease without esophagitis Code(s): K21.9 - Gastro-esophageal reflux disease without esophagitis Status: Acute (7) Depression: Qualifiers: Depression Type: major depressive disorder Major depression recurrence: single episode Active/Remission status: currently active Major depression episode severity: mild Qualified Code(s): F32.0 - Major depressive disorder, single episode, mild Code(s): F32.9 - Major depressive disorder, single episode, unspecified Status: Acute (8) Anxiety: Code(s): F41.9 - Anxiety disorder, unspecified Status: Acute (9) Cataract, left eye: Qualifiers: Cataract type: unspecified Qualified Code(s): H26.9 - Unspecified cataract Code(s): H26.9 - Unspecified cataract Status: Acute DS: Summary Hospital Course Reason for hospitalization: AMS Hospital Course: 03/05/22 ?patient receive ceftriaxone in the emergency room ?currently on Zosyn plus azithromycin ?await cultures ?early goal-directed therapy? in progress ?resp failure likely secondary to acute illness ?supportive care ?continue oxygen supplementation 03/06/22 pt w UTI symptoms and Postive cultue of Ecoli sensitive to rocephin Ct chest to further assess PNA?? Rocephin/Azithro atypical PNA tests ordered am labs? LOS anticipated to be 24-48 more hours? 03/07/[address] chest Leukocytosis has resolved cont abx Restart home medications Monitor overnight Anticipate discharge home tomorrow patient feeling better 03/08/22 pt feeling better dc home in stable condition w indications to follow up w PCP within a week cont Levaquin at dc Status at Discharge Functional status at discharge: independent ambulation Overall status at discharge: patient is back to baseline Time Spent with Patient Time attestation: Total time spent providing and/or coordinating discharge services: Exam Narrative: GEN: NAD, AAOx3, cooperative HEENT: NCAT, MMM, EOMI Neck: no JVD Heart: S1S2 RRR Lungs: CTA B/l Abd: soft, NT, ND, bowel sounds normoactive Ext: moves all, no cyanosis, no clubbing, no edema Neuro: normal cognition, moves all extremities equally, CN intact Psych: mood and affect congruent DS: Data Data Completed and Pending Completed studies during hospitalization: CULTURE, URINE, ROUTINE Micro Number: [id number]??Test Status: Final Specimen Source: Urine Specimen? Quality: Adequate? ?Result: Greater than 100,000 CFU/mL of Escherichia coli E.coli INT HARMAN AMOX/CLAVULANATE S 8? ?AMPICILLIN R >=32? ?AMP/SULBACTAM I 16? ?CEFAZOLIN NR <=4 2? ?CEFEPIME S <=1? ?CEFTAZIDIME S <=1? ?CEFTRIAXONE S <=
== END 2022-03-08 14:56 | disposition home or self-care (01) | DRG 689 ==
LOC: ANHED 03-06 00:02 → ANH3MED 03-06 00:19
PROVIDERS: Physician Assistant; Admitting Provider Internal Medicine; Emergency Provider Emergency Medicine; PCP Family Medicine; Visit Provider Hospitalist
DX: N39.0 Urinary tract infection, site not specified (principal); J96.01 Acute respiratory failure with hypoxia; F32.0 Major depressive disorder, single episode, mild; R91.8 Other nonspecific abnormal finding of lung field; B96.20 Unspecified Escherichia coli [E. coli] as the cause of diseases classified elsewhere; Z20.822 Contact with and (suspected) exposure to COVID-19; R53.1 Weakness; G60.9 Hereditary and idiopathic neuropathy, unspecified; K21.9 Gastro-esophageal reflux disease without esophagitis; I73.00 Raynaud's syndrome without gangrene; F41.9 Anxiety disorder, unspecified; H26.9 Unspecified cataract; M81.0 Age-related osteoporosis without current pathological fracture; Z79.899 Other long term (current) drug therapy; Z87.891 Personal history of nicotine dependence
CPT/HCPCS: 36415; 36600; 51701; 71045; 71250; 80048; 80053; 80307; 81001; 82375; 82805; 83050; 83605; 83735; 83880; 85025; 85610; 85730; 86738; 87086; 87449; 87502; 87899; 96365; 96366; 96367; 97161; 97165; 99285; A9270; C9803; G0378; J0131; J0456; J0696; J2543; U0003; U0005

== ENCOUNTER 2022-03-15 21:04 | Inpatient (IN) | payer MEDICARE, OTHER, SELFPAY ==
[2022-03-15] VITALS (7 sets, daily range): BP systolic 103–145; BP diastolic 61–87; PULSE 99–112; RESP 16–29; TEMP 37.1–37.5; O2SAT 89–99
--- NOTE | ~2022-03-15 | US_ITS ---
EXAMINATION: US venous doppler [facility] DATE: 03/16/2022 16:33 INDICATION: + Ben Sign. TECHNIQUE: Grayscale images without and with compression and Doppler images of the bilateral lower ex tremity veins were obtained. COMPARISON: None FINDINGS: The right common femoral vein, profunda (deep) femoral vein, femoral vein, popliteal vein, peroneal v ein, posterior tibial veins, gastrocnemius vein, and greater saphenous vein are patent. The left common femoral vein, profunda femoral vein, femoral vein, popliteal vein, peroneal vein, pos terior tibial veins, gastrocnemius vein, and greater saphenous vein are patent. IMPRESSION: 1. Patent bilateral lower extremity veins. No evidence of deep venous thrombosis. Reviewed, dictated and finalized at location K. IMPRESSION: 1. Patent bilateral lower extremity veins. No evidence of deep venous thrombos is.
--- NOTE | ~2022-03-15 | CT_ITS ---
EXAMINATION: CTA chest PE protocol DATE: 03/16/2022 17:26 INDICATION: hypoxia TECHNIQUE: Computed tomography angiography (CTA) of the chest was performed with 100 mL Omnipaque-350 intravenous contrast timed to evaluate the pulmonary arteries. Coronal maximum intensity projection 3D-reconstructions were created by the technologist. The dose-length product (DLP) was 237.14 mGy-cm. Automated exposure control and iterative reconstruction technique were employed. COMPARISON: 03/06/2022. FINDINGS: Lung parenchyma and airways: Bibasilar atelectasis. Pleura: Unremarkable. Thoracic inlet, axillae and chest wall: Unremarkable. Thoracic aorta: Mild arch calcification.. Mediastinum: Precarinal duplication cyst. Heart and pericardium: Normal. Coronary artery calcifications: Mild. Upper abdomen: No significant finding. Bones: No acute osseous finding. Pulmonary arteries: Study quality: Motion limited evaluation in the lower lungs. No pulmonary emboli detected. IMPRESSION: Motion limited evaluation of the lower lungs, within that constraint no CT evidence of acute pulmonar y embolus. Reviewed, dictated and finalized at location K. IMPRESSION: Motion limited evaluation of the lower lungs, within that constraint no CT evid ence of acute pulmonary embolus.
--- NOTE | ~2022-03-15 | XR_ITS ---
EXAMINATION: XR chest 1V portable DATE: 03/16/2022 08:20 INDICATION: Hypoxia. TECHNIQUE: A single frontal view of the chest was obtained. COMPARISON: Chest single view 03/15/2022, CT abdomen and pelvis 03/15/2022 FINDINGS: There is mild atelectasis in the lower lung zones. No pleural effusion or pneumothorax. The heart size is normal. IMPRESSION: 1. Mild atelectasis in the lower lung zones. Reviewed, dictated and finalized at location A.
--- NOTE | ~2022-03-15 | XR_ITS ---
EXAMINATION: XR chest 1V portable Exam Date/Time: 03/15/2022 22:03 CDT HISTORY: fever, malaise Comparison: 03/05/2022. RESULT: Lines, tubes, and devices: None. Lungs and pleura: Senescent changes. Left basilar scar/atelectasis. Cardiomediastinal silhouette: Stable. Other: No acute osseous or upper abdominal finding. IMPRESSION: No acute cardiopulmonary process. Reviewed, dictated and finalized at location K.
--- NOTE | ~2022-03-15 | XR_ITS ---
EXAMINATION: XR knee RT 3V DATE: 03/17/2022 13:41 INDICATION: Right knee pain and swelling. TECHNIQUE: 3 views of right knee were obtained. COMPARISON: Right knee radiographs 10/17/2019 FINDINGS: Bone alignment is normal. No fracture. There is mild tricompartmental osteoarthritis. There is a moderate-sized knee joint effusion. IMPRESSION: 1. Mild right knee osteoarthritis. 2. Moderate-sized right knee joint effusion. Reviewed, dictated and finalized at location A.
--- NOTE | ~2022-03-15 | CT_ITS ---
EXAMINATION: CT abdomen pelvis w con DATE: 03/15/2022 23:55 INDICATION: Diarrhea. Bloating. TECHNIQUE: Computed tomography (CT) of the abdomen and pelvis was performed with 100 mL Omnipaque 350 intravenous contrast. Automated exposure control and iterative reconstruction technique were employe d. The dose-length product was 915.74 mGy-cm. COMPARISON: None. FINDINGS: The visualized portions of the lung bases demonstrate mild atelectasis. No pleural effusion . The heart size is normal. No pericardial effusion. There is a moderate-sized sliding hiatal hernia. The liver, spleen, gallbladder, pancreas, adrenal glands, and kidneys are normal. There is a large v olume of stool in the colon. There is liquid stool in the proximal colon. The appendix is normal. The re are no pathologically enlarged lymph nodes. There is no free intraperitoneal fluid. There is moder ate lumbar spondylosis. IMPRESSION: 1. Large volume of stool in the colon including liquid stool, correlating with the symptom of diarrhe a. 2. Moderate-sized sliding hiatal hernia. Reviewed, dictated and finalized at location A. IMPRESSION: 1. Large volume of stool in the colon including liquid stool, correlating with the symptom of diarrhea. 2. Moderate-sized sliding hiatal hernia.
--- NOTE | 2022-03-15 21:31 | ED.GENADULT ---
HPI - General Adult General Chief complaint: Headache Stated complaint: headache, body aches Time Seen by Provider: 03/15/22 21:20 History of Present Illness HPI narrative: Pt is a 76 y/o female, Hx of chronic constipation with bouts of diarrhea, presents to ED via POV from home with CC she has felt weak, has a generalized headache, malaise, feeling chilled with diarrhea for the past two days. She was recently admitted here -03/08/2022 for UTI and possible pneumonia; given Rocephin, Zithromax and Zosyn and advanced imaging of the chest was completed and pneumonia was ruled out. She completed IV abx therapy and was discharged home on Levaquin which she completed yesterday. She was feeling better at discharge until today. For the past three days, she has had loose stool that appears like pumpkin . She denies associated CP, SOB, abdominal pain, hematochezia or melena. Her urinary symptoms remain resolved. Related Data Home Medications Medication Instructions Recorded Confirmed melatonin 10 mg tablet 10 mg PO HS PRN Sleep 10/04/21 03/06/22 ascorbic acid (vitamin C) 500 mg 500 mg PO DAILY 11/30/21 03/06/22 tablet calcium carb,cit ER 600 mg-vit D3 1 tablet PO DAILY 11/30/21 03/06/22 12.5 mcg (500 unit) tablet,ext.rel (Citracal-D3 Slow Release) cholecalciferol (vitamin D3) 25 25 mcg PO DAILY 11/30/21 03/06/22 mcg (1,000 unit) tablet (Vitamin D3) vits 75-iron 28 mg-folic 1 pkg PO DAILY 11/30/21 03/06/22 acid 800 mcg-omega3 440 mg oral pack (One Daily ) duloxetine 60 mg capsule,delayed 60 mg PO DAILY 12/10/21 03/06/22 release (Cymbalta) Allergies Allergy/AdvReac Type Severity Reaction Status Date / Time codeine Allergy Unknown Nausea Verified 03/15/22 21:20 bupropion [From Wellbutrin] AdvReac Severe Other Verified 03/15/22 21:20 Review of Systems Constitutional: Comments: refer to HPI Gastrointestinal: Comments: refer to HPI Musculoskeletal: Comments: refer to HPI [facility] Past Medical History Medical History Anxiety BMI 25.0-25.9,adult BMI 28.0-28.9,adult BMI 29.0-29.9,adult BMI 30.0-30.9,adult BMI greater than 30 Chronic constipation Depression Dyspepsia Fracture of proximal end of fibula High ankle sprain of right lower extremity Osteoporosis Screen for colon cancer Urinary tract infection Family History Family History Father Diabetes mellitus Heart disease Family history of diabetes mellitus in first degree relative Family history of coronary artery disease Hypertension Cerebrovascular accident Family history of arthritis Mother Heart disease Family history of diabetes mellitus in first degree relative Family history of coronary artery disease Hypertension Cerebrovascular accident Diabetes mellitus Family history of arthritis Sibling Family history of diabetes mellitus in first degree relative Hypertension Family history of arthritis Social History Social History Smoking packs per day: 1 Smoking cigarettes per day: 20.0 Years smoked: 6 Smoking pack-years: 6.00 Smoking status: Never smoker Tobacco type: cigarettes Second hand tobacco smoke exposure: Yes Smoking end date: 07/25/84 Alcohol intake: current Alcohol use details: Holiday's Substance use: never Substance use type: does not use 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 Gender identity (if verbalized by the patient): Female Sexual Orientation (if Verbalized by the Patient): Straight or Heterosexual Spiritual care concerns: No Exam Const: General: healthy appearing, no acute distress and alert Orientation/consciousness: patient oriented x3 Limitations: no limitations HENMT: Head: normal to inspection General nose exam:
[2022-03-15] MEDS: SODIUM CHLORIDE 0.9% IV 1,000 ML 999 ML IV CONT (21:57)
[2022-03-15 22:04] LABS: Basophils Absolute Auto 0.1 K/mm3 (0.0-0.1); Basophils Percent Auto 0.3 % (0.2-1.2); Hematocrit 38.2 % (37.0-47.0); Hemoglobin 12.4 g/dL (12.0-15.0); Immature Granulocyte Absolute 0.15 K/mm3 (0.00-0.031); Immature Granulocyte Percent A 0.7 % (0-0.5); Lymphocytes Absolute Auto 0.34 K/mm3 (0.9-3.2); Lymphocytes Percent Auto 1.7 % (18.3-44.2); Mean Corpuscular HGB Conc 32.5 g/dl (32-36); Mean Corpuscular Hemoglobin 29.3 pg (26-34); Mean Corpuscular Volume 90.3 fl (80-100); Monocytes Absolute Auto 0.5 K/mm3 (0.1-0.6); Monocytes Percent Auto 2.6 % (2.6-8.5); Neutrophils Absolute Auto 19.2 K/mm3 (1.3-6.7); Neutrophils Percent Auto 94.7 % (45.5-73.1); Platelet Count Result 315 k/mm3 (150-375); Red Blood Count 4.23 M/mm3 (4.2-5.4); Red Cell Distribution Width 14.1 % (11.5-14.5); White Blood Count 20.3 K/mm3 (4.5-10.0)
[2022-03-15 22:12] LABS: Prothrombin Time 13.2 Seconds (11.1-14.7)
--- NOTE | 2022-03-15 22:13 | PC.NURSE ---
pt sitting upright in bed on RA consistently at 89% this RN applied 2L oxygen via NC and pt is now at 95%.
[2022-03-15 22:15] LABS: Lipase 43 U/L (23-300)
[2022-03-15 22:16] LABS: Lactic Acid Reflex 2.1 mmol/L (0.7-2.0)
[2022-03-15 22:18] LABS: Alanine Aminotransferase 15 U/L (6-35); Albumin Level 4.4 g/dL (3.5-5.1); Alkaline Phosphatase 59 U/L (38-126); Anion Gap 9 mmol/L (8-16); Aspartate Amino Transferase 25 U/L (14-36); Bilirubin,Total 0.8 mg/dL (0.2-1.3); Blood Urea Nitrogen 20 mg/dL (7-17); CRP 2.1 mg/dL (<1.0); Calcium 10.1 mg/dL (8.4-10.2); Carbon Dioxide 26 mmol/L (22-30); Chloride 100 mmol/L (98-107); Estimated CRCL calculation 39 ml/min; Estimated Glomerular Filt Rate > 60; Glucose 148 mg/dL (65-110); Potassium 4.5 mmol/L (3.4-5.0); Sodium 135 mmol/L (137-145)
[2022-03-15 22:42] LABS: Appearance Urine Clear (Clear); Bilirubin Urine Negative (Negative); Blood Urine Negative (Negative); Color Urine Yellow (Yellow); Glucose Urine UA Negative (Negative); Ketones Urine Negative (Negative); Leukocyte Esterase Ur Negative LEU/UL (Negative); Nitrate Urine Negative (Negative); Protein Urine Negative (Negative); Specific Grav Ur >= 1.030 (1.001-1.035); Urobilinogen Urine 0.2 mg/dL (<2.0)
[2022-03-15 22:43] LABS: SARS-CoV-2 RNA PCR Negative
[2022-03-15 22:44] LABS: RBC Urine 0-2 /hpf (0-2); WBC Urine 0-3 /hpf
[2022-03-15 22:49] LABS: Add Urine Microscopic? NO
--- NOTE | 2022-03-15 22:49 | PC.NURSE ---
Per pt verbal permission, called Gómez at [phone] and gave update on pt status.
[2022-03-16] VITALS (26 sets, daily range): BP systolic 99–144; BP diastolic 46–96; PULSE 83–129; RESP 14–41; TEMP 36.4–39.2; O2SAT 89–100; BMI 30.7
--- NOTE | 2022-03-16 | ECHO_ITS ---
Patient Info Name: Montse Waters Age: 76 years : 1945 Gender: Female Ht: 61 in Wt: 162 lbs BSA: 1.81 m2 HR: 87 bpm BP: 99 / 57 mmHg Heart Rhythm: Sinus Rhythm Technical Quality: Fair Exam Date: 03/16/2022 11:50 AM Exam Location: [facility] Pulmonary Patient Status: Inpatient Admit Date: 03/16/2022 Staff Ordering Physician: Tracey Fernandez DO Precast Molder: Natalia Love RDCS Attending Provider: Tracey Fernandez DO Referring Physician: Jim GOMEZ; Exam Type: CA echo doppler color flow Study Info Indications - hypoxia Complete two-dimensional, color flow and Doppler transthoracic echocardiogram is performed. Summary 1. Complete two-dimensional, color flow and Doppler transthoracic echocardiogram is performed. 2. Left ventricular chamber dimension is normal. 3. Left ventricular systolic function is normal, estimated at 65-70%. 4. The left ventricular diastolic function is grade II diastolic dysfunction. 5. E/e' 12 is mildly elevated. 6. Left atrial chamber dimension is mildly enlarged. 7. There is mild aortic valve sclerosis. 8. There is mild to moderate mitral valve regurgitation. 9. There is moderate tricuspid valve regurgitation. 10. No pulmonary hypertension, estimated pulmonary arterial systolic pressure is 37 mmHg. Left Ventricle E/e' 12 is mildly elevated. Left ventricular chamber dimension is normal. Left ventricular systolic function is normal, estimated at 65-70%. The left ventricular diastolic function is grade II diastolic dysfunction. Right Ventricle Right ventricular systolic function is normal and with normal TAPSE 2.1 cm. Right ventricular chamber dimension is normal. Left Atria Left atrial chamber dimension is mildly enlarged. Right Atria Right atrial chamber dimension is normal. Aortic Valve The aortic valve is trileaflet. There is mild aortic valve sclerosis. There is no aortic valve stenosis. There is no aortic valve regurgitation. Pulmonic Valve There is no pulmonic regurgitation. Mitral Valve There is no mitral valve stenosis. There is mild to moderate mitral valve regurgitation. Tricuspid Valve There is moderate tricuspid valve regurgitation. No pulmonary hypertension, estimated pulmonary arterial systolic pressure is 37 mmHg. Pericardium/Pleural There is no pericardial effusion. Inferior Vena Cava Normal inferior vena cava with >50% collapse upon inspiration consistent with normal right atrial pressure, 5 mmHg. Aorta The aortic root size at the sinus of Valsalva is normal. Left Ventricular Outflow Tract Name Value Normal LVOT 2D LVOT Diameter 2.0 cm LVOT Doppler LVOT Peak Gradient 7 mmHg LVOT Mean Gradient 3 mmHg LVOT VTI 24 cm LVOT VTI/AV VTI Ratio 0.7 LVOT Stroke Volume 77 ml LVOT CO 6.4 l/min LVOT CI 3.6 l/min/m2 Pulmonic Valve
--- NOTE | 2022-03-16 00:18 | PC.NURSE ---
Pt resting upright in stretcher on 2L via NC resting at 89%. This RN notified EDP. Per EDP turned to 3L NC and pt resting at 91%.
[2022-03-16] MEDS: ACETAMINOPHEN 500 MG TABLET 1000 MG PO (00:32)
[2022-03-16 01:00] LABS: Reflex Lactic Acid Yes or No Add Lactic
[2022-03-16] MEDS: SODIUM CHLORIDE 0.9% IV 1,000 ML 999 ML IV CONT (01:01)
[2022-03-16 01:29] LABS: Lactic Acid 2.6 mmol/L (0.7-2.0)
--- NOTE | 2022-03-16 01:41 | ECG_ITS ---
Measurements Intervals [place] Rate: 100 P: 50 [place]: 133 QRS: -28 QRSD: 91 T: 18 QT: 333 QTc: 430 Interpretive Statements SINUS TACHYCARDIA LEFTWARD AXIS Electronically Signed On 03-16-2022 8:25:58 CDT by Jesu Caldera M.D.
[2022-03-16] MEDS: FIDAXOMICIN 200 MG TABLET PO ×3 (01:45→20:17)
--- NOTE | 2022-03-16 03:03 | ADMGEN ---
This patient, Montse Waters, was admitted to IMU Room 207-01. Patient/family oriented to hospital policies and general routines including ID bracelet, bed and alarms, visiting hours, pain management, procedures, bathroom and other care routines, personal items, smoking policy, room service/diet, and visiting hours. Information on how to activate the Rapid Response Team has been discussed. Patient/Family are encouraged to report perceived risks to care and to ask questions if they do not understand what they are told or what they should do.
--- NOTE | 2022-03-16 03:47 | PM.IMHP ---
H&P: HPI History of Present Illness Date/Time: 03/16/22 03:47 Chief Complaint: Diarrhea, fever and body aches Narrative: 76-year-old female with a past medical history of pancreatic insufficiency, GERD, depression and recent hospitalizations for UTI who presented to the ER with body aches diarrhea and subjective fever. The patient had evidently went out shopping with her niece today and did have some shortness of breath with some intermittent chest discomfort. Details of chest discomfort were not obtainable as patient seemed encephalopathic and would intermittently not answer questions. Knees symptoms which were also accompanied by 2 or 3 days of diarrhea. According to the ER provider the patient's stools had been orange in color. Stools were mushy and watery. Patient was unable to give me any actual details regarding her stools at the time my evaluation. She could not tell me how many stools she was having a day. She denies any associated abdominal pain, hematochezia or melena. She did not endorse any urinary symptoms. The patient did have some nausea today before coming to the ER but denied having any vomiting. She became febrile shortly after arriving to the ER with a T-max of 102.6?. The patient became acutely tachycardic with heart rates in the 130s and 140s. Her tachycardia improved after antipyretics and a 2 L of IV fluids. Before her her 2 L of fluid the patient had developed some hypoxia. She was placed on 2 L nasal cannula but again became more hypoxic and had to be increased to 4 L nasal cannula. At the time of my evaluation the patient was satting 90% on 4 L nasal cannula in asked nursing staff to wean patient's oxygen but it does not appear that this has occurred. During her recent hospitalization the patient had been on Zosyn, Rocephin and azithromycin. And potentially Zosyn and azithromycin were discontinued and patient was continued on Rocephin. On discharge she was placed on Levaquin. She completed her course of Levaquin on the . Overall she had felt closer to her baseline except for diarrhea which started 3 days ago. Review of Systems Review of Systems: 12 systems were reviewed with pertinent positives and negatives per HPI. Except as documented in the HPI, all other systems were reviewed and are negative. However limited as the patient appears to be encephalopathic and has difficulty answering questions. FORMERLY [facility] Past Medical History Medical History (Updated 03/16/22 @ 04:13 by Tracey Fernandez DO) Anxiety BMI 30.0-30.9,adult Cataract, left eye Chronic constipation Depression Diastolic dysfunction without heart failure Echocardiogram February 2021: Grade 1 Eczema Fracture of proximal end of fibula GERD (gastroesophageal reflux disease) Osteoporosis Pancreatic insufficiency Peripheral neuropathy Raynauds disease Vitamin D deficiency Surgical History Surgical History (Updated 03/16/22 @ 04:13 by Tracey Fernandez DO) Normal colonoscopy (11/2021) Status post cataract extraction of both eyes with insertion of intraocular lens Family History Family History Father Diabetes mellitus Heart disease Family history of diabetes mellitus in first degree relative Family history of coronary artery disease Hypertension Cerebrovascular accident Family history of arthritis Mother Heart disease Family history of diabetes mellitus in first degree relative Family history of coronary artery disease Hypertension Cerebrovascular accident Diabetes mellitus Family history of arthritis Sibling Family history of diabetes mellitus in first degree relative Hypertension Family history of arthritis Social History Social History Smoking packs per day: 1 Smoking cigarettes per day: 20.0 Years smoked: 6 Smoking pack-years: 6.00 Smoking status: Never smok
[2022-03-16] MEDS: SODIUM CHLORIDE 0.9% IV 1,000 ML 125 ML IV CONT (04:53)
[2022-03-16 05:10] LABS: Basophils Absolute Auto 0.1 K/mm3 (0.0-0.1); Basophils Percent Auto 0.4 % (0.2-1.2); Hematocrit 33.4 % (37.0-47.0); Hemoglobin 10.6 g/dL (12.0-15.0); Immature Granulocyte Absolute 0.17 K/mm3 (0.00-0.031); Immature Granulocyte Percent A 0.8 % (0-0.5); Lymphocytes Percent Auto 1.4 % (18.3-44.2); Mean Corpuscular HGB Conc 31.7 g/dl (32-36); Mean Corpuscular Hemoglobin 29.6 pg (26-34); Mean Corpuscular Volume 93.3 fl (80-100); Mean Platelet Volume 10.1 fl (7.4-10.4); Monocytes Absolute Auto 0.5 K/mm3 (0.1-0.6); Monocytes Percent Auto 2.4 % (2.6-8.5); Neutrophils Absolute Auto 20.3 K/mm3 (1.3-6.7); Platelet Count Result 243 k/mm3 (150-375); Red Blood Count 3.58 M/mm3 (4.2-5.4); Red Cell Distribution Width 14.4 % (11.5-14.5); White Blood Count 21.3 K/mm3 (4.5-10.0)
[2022-03-16 05:23] LABS: Lactic Acid Reflex 1.1 mmol/L (0.7-2.0)
[2022-03-16 05:26] LABS: Anion Gap 6 mmol/L (8-16); Blood Urea Nitrogen 19 mg/dL (7-17); Calcium 8.6 mg/dL (8.4-10.2); Carbon Dioxide 26 mmol/L (22-30); Chloride 103 mmol/L (98-107); Estimated CRCL calculation 42 ml/min; Estimated Glomerular Filt Rate > 60; Glucose 151 mg/dL (65-110); Potassium 4.1 mmol/L (3.4-5.0); Sodium 135 mmol/L (137-145)
[2022-03-16] MEDS: metroNIDAZOLE 500 MG/ISO 100ML 500 MG/100 ML BAG 100 MG IVPB ×4 (07:57→23:50)
[2022-03-16] MEDS: DULoxetine HCL 60 MG CAPSULE.DR PO (08:04)
[2022-03-16] MEDS: CHOLECALCIFEROL 1,000 UNITS TABLET 1000 UNITS PO (08:04)
[2022-03-16] MEDS: PANTOPRAZOLE 40 MG TABLET PO ×2 (08:05→17:05)
[2022-03-16] MEDS: GABAPENTIN 300 MG CAPSULE 600 MG PO ×2 (08:05→17:05)
[2022-03-16 08:23] LABS: Troponin I < 0.012 ng/mL (0.000-0.034)
[2022-03-16] MEDS: ENOXAPARIN 40 MG/0.4 ML SYRINGE SUB-Q (10:32)
[2022-03-16 11:06] LABS: Troponin I < 0.012 ng/mL (0.000-0.034)
[2022-03-16] MEDS: ACETAMINOPHEN 325 MG TABLET 650 MG PO (12:56)
[2022-03-16 14:04] LABS: Troponin I < 0.012 ng/mL (0.000-0.034)
--- NOTE | 2022-03-16 14:55 | PM.IMPN ---
Progress Note: A&P Assessment and Plan (1) Sepsis: Code(s): A41.9 - Sepsis, unspecified organism Status: Acute Assessment and Plan: Sepsis present on admission with fever, leukocytosis, lactic acidosis and tachycardia. Chest x-ray shows bibasilar atelectasis. UA is negative. Blood cultures pending. CT of the abdomen and pelvis showing large volume stool in the colon including liquid stool. She was exposed antibiotics recently. Concern for C diff diarrhea. No evidence of colitis on imaging. Stool studies sent. Follow-up on results. (2) Acute respiratory failure with hypoxia: Code(s): J96.01 - Acute respiratory failure with hypoxia Status: Acute Assessment and Plan: Patient hypoxic on admission. She does not wear oxygen at home. No history of lung disease. She was recently hospitalized which per chart risk for DVT. Positive Homans sign. Will check lower extremity venous Dopplers. Check CTA of the chest. Wean oxygen as tolerated. (3) Diarrhea: Qualifiers: Diarrhea type: unspecified type Qualified Code(s): R19.7 - Diarrhea, unspecified Code(s): R19.7 - Diarrhea, unspecified Status: Acute Assessment and Plan: Patient having large is soft stools. She states she is only having 1 large bowel movement a day. However given the sepsis symptoms, there was concern for C diff. fidaxomicin is been started as well as IV Flagyl. No evidence of colitis by imaging. Lipase normal. History does mention pancreatic insufficiency which could contribute to diarrhea. She is not on pancreatic replacement treatment. Will follow up on stool studies. Continue current treatment for C diff as mentioned above. Consider pancreatic replacement if stool studies are negative and diarrhea persists. Plan DVT prophylaxis: Lovenox Code status: Full Diet: Regular Subjective Date/time seen: 03/16/22 14:55 Interval history: 76yo female with depression here for diarrhea, weakness, MONTIEL, and chills. She was recently hospitalized (03/04-03/08) for AMS, UTI and possible PNA. She was discharged home on Levaquin. She currently complains of SOB, headache, neck pain and myalgias. Overall, she feels better today. No CP. Had diarrhea from October through January that was liquid. Colonoscopy (12/09/21) during this time was normal. Diarrhea eventually resolved. Diarrhea returned the day after discharge but more like 'cow patties' with 1 BM per day. No melena or hematochezia. No done aphasia or dysphagia. No abdominal pain. No stool incontinence. No nausea or vomiting. She is not on home oxygen. No cough. No pedal edema. She does complain of calf pain. Exam Narrative: Tm 102.6 97.7 106/46 89 116 99% 3L Gen - NARD Chest -mild bibasilar inspiratory crackles. Normal respiratory rate. No conversational dyspnea. CV - RRR S1/S2. Telemetry showing no significant dysrhythmias Abd - Soft, NT/ND, Positive BS Ext - No pedal edema. Right positive Homans sign Psych - Nml mood and affect Skin - Warm and dry Objective Data Vital Signs Vital Signs: Vital Signs - 24 hr 03/15/22 21:06 03/15/22 21:25 03/15/22 21:56 Temperature 99.5 F 98.8 F Pulse Rate 107 H 104 H 104 H Respiratory Rate 22 H 16 25 H Blood Pressure 103/87 126/72 128/67 Pulse Oximetry 93 92 96 Oxygen Delivery Room Air Oxygen Flow Rate 03/15/22 22:10 03/15/22 22:14 03/15/22 22:52 Temperature 99.2 F Pulse Rate 99 Respiratory Rate 24 H Blood Pressure 122/61 Pulse Oximetry 89 L 95 99 Oxygen Delivery Room Air Nasal Cannula Oxygen Flow Rate 2 03/15/22 23:34 03/16/22 00:13 03/16/22 00:20 Temperature 99.1 F 100.5 F H Pulse Rate 112 H 126 H Respiratory Rate 29 H 41 H Blood Pressure 145/65 H 144/96 H Pulse Oximetry 93 90 89 L Oxygen Delivery Nasal Cannula Oxygen Flow Rate 2 03/16/22 00:21 03/16/22 00:36 03/16/22 00:41 Temperature 102.6 F H Pulse Rate 129 H Respiratory Rate
[2022-03-16] MEDS: SODIUM CHLORIDE 0.9% IV 1,000 ML 75 ML IV CONT (17:03)
[2022-03-17] VITALS (13 sets, daily range): BP systolic 116–141; BP diastolic 51–62; PULSE 70–98; RESP 18–20; TEMP 36.3–36.6; O2SAT 95–100
[2022-03-17] MEDS: ACETAMINOPHEN 325 MG TABLET 650 MG PO ×2 (04:06→12:06)
[2022-03-17 05:18] LABS: Basophils Percent Auto 0.2 % (0.2-1.2); Eosinophils Absolute Auto 0.4 K/mm3 (0-0.3); Eosinophils Percent Auto 5.3 % (0-4.4); Hematocrit 31.2 % (37.0-47.0); Hemoglobin 9.9 g/dL (12.0-15.0); Immature Granulocyte Absolute 0.03 K/mm3 (0.00-0.031); Immature Granulocyte Percent A 0.4 % (0-0.5); Lymphocytes Absolute Auto 1.07 K/mm3 (0.9-3.2); Lymphocytes Percent Auto 13.2 % (18.3-44.2); Mean Corpuscular HGB Conc 31.7 g/dl (32-36); Mean Corpuscular Hemoglobin 29.4 pg (26-34); Mean Corpuscular Volume 92.6 fl (80-100); Mean Platelet Volume 10.2 fl (7.4-10.4); Monocytes Absolute Auto 0.4 K/mm3 (0.1-0.6); Monocytes Percent Auto 4.6 % (2.6-8.5); Neutrophils Absolute Auto 6.2 K/mm3 (1.3-6.7); Neutrophils Percent Auto 76.3 % (45.5-73.1); Platelet Count Result 223 k/mm3 (150-375); Red Blood Count 3.37 M/mm3 (4.2-5.4); Red Cell Distribution Width 14.5 % (11.5-14.5); White Blood Count 8.1 K/mm3 (4.5-10.0)
[2022-03-17 05:32] LABS: Alanine Aminotransferase 11 U/L (6-35); Albumin Level 3.1 g/dL (3.5-5.1); Alkaline Phosphatase 46 U/L (38-126); Anion Gap 6 mmol/L (8-16); Aspartate Amino Transferase 19 U/L (14-36); Bilirubin,Total 0.5 mg/dL (0.2-1.3); Blood Urea Nitrogen 16 mg/dL (7-17); Calcium 8.6 mg/dL (8.4-10.2); Carbon Dioxide 26 mmol/L (22-30); Chloride 106 mmol/L (98-107); Estimated CRCL calculation 42 ml/min; Estimated Glomerular Filt Rate > 60; Glucose 115 mg/dL (65-110); Potassium 4.1 mmol/L (3.4-5.0); Sodium 138 mmol/L (137-145)
[2022-03-17] MEDS: metroNIDAZOLE 500 MG/ISO 100ML 500 MG/100 ML BAG 100 MG IVPB ×4 (05:46→23:18)
[2022-03-17] MEDS: FIDAXOMICIN 200 MG TABLET PO ×2 (08:52→20:52)
[2022-03-17] MEDS: GABAPENTIN 300 MG CAPSULE 600 MG PO ×2 (08:52→20:53)
[2022-03-17] MEDS: DULoxetine HCL 60 MG CAPSULE.DR PO (08:52)
[2022-03-17] MEDS: CHOLECALCIFEROL 1,000 UNITS TABLET 1000 UNITS PO (08:52)
[2022-03-17] MEDS: ENOXAPARIN 40 MG/0.4 ML SYRINGE SUB-Q (08:52)
[2022-03-17] MEDS: PANTOPRAZOLE 40 MG TABLET PO ×2 (08:52→17:42)
[2022-03-17] MEDS: SODIUM CHLORIDE 0.9% IV 1,000 ML 75 ML IV CONT (10:50)
--- NOTE | 2022-03-17 11:58 | PM.IMPN ---
Progress Note: A&P Assessment and Plan (1) Sepsis: Code(s): A41.9 - Sepsis, unspecified organism Status: Acute Assessment and Plan: Sepsis present on admission with fever, leukocytosis, lactic acidosis and tachycardia. Chest x-ray shows bibasilar atelectasis. UA is negative. Blood cultures no growth to date CT of the abdomen and pelvis showing large volume stool in the colon including liquid stool. She was exposed antibiotics recently. Concern for C diff diarrhea. No evidence of colitis on imaging. Stool studies sent which has been mostly negative. C diff came back negative. Already on fidaxomicin and metronidazole. (2) Acute respiratory failure with hypoxia: Code(s): J96.01 - Acute respiratory failure with hypoxia Status: Acute Assessment and Plan: Patient hypoxic on admission. She does not wear oxygen at home. No history of lung disease. She was recently hospitalized which per chart risk for DVT. Positive Homans sign. CTA chest with no PE anemia the pulmonary abnormalities except for bibasilar atelectasis. Venous duplex is negative for DVT. Currently weaned off of oxygen (3) Diarrhea: Qualifiers: Diarrhea type: unspecified type Qualified Code(s): R19.7 - Diarrhea, unspecified Code(s): R19.7 - Diarrhea, unspecified Status: Acute Assessment and Plan: Patient having large is soft stools. She states she is only having 1 large bowel movement a day. However given the sepsis symptoms, there was concern for C diff. fidaxomicin is been started as well as IV Flagyl. No evidence of colitis by imaging. Lipase normal. History does mention pancreatic insufficiency which could contribute to diarrhea. She is not on pancreatic replacement treatment. Will follow up on stool studies. Continue current treatment for C diff as mentioned above. Consider pancreatic replacement if stool studies are negative and diarrhea persists. Plan Right knee pain: X-ray done which showed osteoarthritis along with effusion. Moderate size sliding hiatal hernia DVT prophylaxis: Lovenox Code status: Full Diet: Regular Subjective Date/time seen: 03/17/22 11:58 Interval history: 76yo female with depression here for diarrhea, weakness, MONTIEL, and chills. She was recently hospitalized (03/04-03/08) for AMS, UTI and possible PNA. She was discharged home on Levaquin. 03/17/2022: No overnight events. She had stool since admission and was sent for testing. Has chronic history of constipation but started having diarrhea since October through January which was liquidy. Colonoscopy 12/09/2021 was normal. Diarrhea resolved spontaneously. 03/18/2022 no overnight events. Feeling stronger. Denies any diarrhea. Legs are getting better less pain. Review of Systems Review of Systems: All systems reviewed & are unremarkable except as noted in HPI and below Exam Narrative: Gen - NARD Chest -mild bibasilar inspiratory crackles. Normal respiratory rate. No conversational dyspnea. CV - RRR S1/S2. Telemetry showing no significant dysrhythmias Abd - Soft, NT/ND, Positive BS Ext - No pedal edema. Right knee mildly swollen Psych - Nml mood and affect Skin - Warm and dry Objective Data Vital Signs Vital Signs: Vital Signs - 24 hr 03/16/22 12:00 03/16/22 12:00 03/16/22 12:00 Temperature 97.7 F Pulse Rate 89 87 Respiratory Rate 16 Blood Pressure 106/46 L Pulse Oximetry 99 98 Oxygen Delivery Nasal Cannula Oxygen Flow Rate 3 03/16/22 13:42 03/16/22 14:00 03/16/22 16:00 Temperature 97.5 F L Pulse Rate 89 85 Respiratory Rate 14 Blood Pressure 108/58 L Pulse Oximetry 99 100 Oxygen Delivery Nasal Cannula Oxygen Flow Rate 3 03/16/22 16:30 03/16/22 16:30 03/16/22 18:00 Temperature Pulse Rate 83 94 Respiratory Rate Blood Pressure Pulse Oximetry 98 Oxygen Delivery Nasal Cannula Oxygen Flow Rate 2 03/16/22 18
[2022-03-17 12:47] LABS: IFOB Positive Control Positive; Immunochemical Fecal Occult Bl Negative (N)
[2022-03-17 13:23] LABS: Toxigenic C. Diff NEGATIVE (NEGATIVE)
[2022-03-18] VITALS (10 sets, daily range): BP systolic 107–130; BP diastolic 56–65; PULSE 71–92; RESP 18–20; TEMP 36.6–37.3; O2SAT 95–98
[2022-03-18] MEDS: metroNIDAZOLE 500 MG/ISO 100ML 500 MG/100 ML BAG 100 MG IVPB ×3 (05:33→17:15)
[2022-03-18] MEDS: SODIUM CHLORIDE 0.9% IV 1,000 ML 75 ML IV CONT (05:34)
[2022-03-18] MEDS: DULoxetine HCL 60 MG CAPSULE.DR PO (08:32)
[2022-03-18] MEDS: FIDAXOMICIN 200 MG TABLET PO ×2 (08:32→20:22)
[2022-03-18] MEDS: PANTOPRAZOLE 40 MG TABLET PO ×2 (08:32→17:14)
[2022-03-18] MEDS: CHOLECALCIFEROL 1,000 UNITS TABLET 1000 UNITS PO (08:33)
[2022-03-18] MEDS: ENOXAPARIN 40 MG/0.4 ML SYRINGE SUB-Q (08:33)
[2022-03-18] MEDS: ACETAMINOPHEN 325 MG TABLET 650 MG PO (08:55)
[2022-03-18] MEDS: GABAPENTIN 300 MG CAPSULE 600 MG PO ×2 (09:17→20:22)
[2022-03-18 11:14] LABS: Hematocrit 34.6 % (37.0-47.0); Hemoglobin 10.9 g/dL (12.0-15.0); Mean Corpuscular HGB Conc 31.5 g/dl (32-36); Mean Corpuscular Hemoglobin 29.2 pg (26-34); Mean Corpuscular Volume 92.8 fl (80-100); Mean Platelet Volume 10.2 fl (7.4-10.4); Platelet Count Result 243 k/mm3 (150-375); Red Blood Count 3.73 M/mm3 (4.2-5.4); Red Cell Distribution Width 14.5 % (11.5-14.5); White Blood Count 5.9 K/mm3 (4.5-10.0)
[2022-03-18 11:26] LABS: Anion Gap 9 mmol/L (8-16); Blood Urea Nitrogen 14 mg/dL (7-17); Carbon Dioxide 25 mmol/L (22-30); Chloride 105 mmol/L (98-107); Estimated CRCL calculation 42 ml/min; Estimated Glomerular Filt Rate > 60; Glucose 129 mg/dL (65-110); Sodium 139 mmol/L (137-145)
[2022-03-18] MEDS: ONDANSETRON INJ 4 MG/2 ML VIAL IV PUSH (13:22)
--- NOTE | 2022-03-18 16:35 | PC.NURSE ---
This patient, Montse Waters, was transferred to [ [facility]] on 03/18/22 at 1643. Personal belongings sent with patient. Report given to [ Cici]. Appropriate documentation sent with patient.
[2022-03-19] MEDS: metroNIDAZOLE 500 MG/ISO 100ML 500 MG/100 ML BAG 100 MG IVPB ×3 (00:14→11:22)
[2022-03-19 04:48] LABS: Basophils Percent Auto 0.6 % (0.2-1.2); Eosinophils Absolute Auto 0.3 K/mm3 (0-0.3); Eosinophils Percent Auto 5.8 % (0-4.4); Hematocrit 31.1 % (37.0-47.0); Immature Granulocyte Absolute 0.03 K/mm3 (0.00-0.031); Immature Granulocyte Percent A 0.6 % (0-0.5); Lymphocytes Absolute Auto 1.29 K/mm3 (0.9-3.2); Lymphocytes Percent Auto 25.1 % (18.3-44.2); Mean Corpuscular HGB Conc 32.2 g/dl (32-36); Mean Corpuscular Hemoglobin 29.3 pg (26-34); Mean Corpuscular Volume 91.2 fl (80-100); Mean Platelet Volume 10.4 fl (7.4-10.4); Monocytes Absolute Auto 0.4 K/mm3 (0.1-0.6); Neutrophils Absolute Auto 3.1 K/mm3 (1.3-6.7); Neutrophils Percent Auto 59.9 % (45.5-73.1); Platelet Count Result 237 k/mm3 (150-375); Red Blood Count 3.41 M/mm3 (4.2-5.4); Red Cell Distribution Width 14.2 % (11.5-14.5); White Blood Count 5.1 K/mm3 (4.5-10.0)
[2022-03-19 05:04] LABS: Alanine Aminotransferase 13 U/L (6-35); Albumin Level 3.1 g/dL (3.5-5.1); Alkaline Phosphatase 46 U/L (38-126); Anion Gap 4 mmol/L (8-16); Aspartate Amino Transferase 26 U/L (14-36); Bilirubin,Total 0.5 mg/dL (0.2-1.3); Blood Urea Nitrogen 12 mg/dL (7-17); Calcium 8.6 mg/dL (8.4-10.2); Carbon Dioxide 29 mmol/L (22-30); Chloride 105 mmol/L (98-107); Estimated CRCL calculation 42 ml/min; Estimated Glomerular Filt Rate > 60; Glucose 101 mg/dL (65-110); Magnesium 1.7 mg/dL (1.6-2.3); Potassium 3.9 mmol/L (3.4-5.0); Sodium 138 mmol/L (137-145)
[2022-03-19 05:55] VITALS: BP 129/62; PULSE 79; RESP 14; TEMP 36.4; O2SAT 95
[2022-03-19] MEDS: ENOXAPARIN 40 MG/0.4 ML SYRINGE SUB-Q (08:31)
[2022-03-19] MEDS: GABAPENTIN 300 MG CAPSULE 600 MG PO (08:31)
[2022-03-19] MEDS: FIDAXOMICIN 200 MG TABLET PO (08:31)
[2022-03-19] MEDS: PANTOPRAZOLE 40 MG TABLET PO (08:31)
[2022-03-19] MEDS: CHOLECALCIFEROL 1,000 UNITS TABLET 1000 UNITS PO (08:31)
[2022-03-19] MEDS: DULoxetine HCL 60 MG CAPSULE.DR PO (08:31)
[2022-03-19] MEDS: ACETAMINOPHEN 325 MG TABLET 650 MG PO (08:32)
--- NOTE | 2022-03-19 11:57 | PM.DS ---
DS: Admitting Diagnosis Discharge Date 03/19/2022 Admitting Diagnosis sepsis DS: Discharge Diagnosis Discharge Diagnosis (1) Sepsis: Code(s): A41.9 - Sepsis, unspecified organism Status: Acute (2) Acute respiratory failure with hypoxia: Code(s): J96.01 - Acute respiratory failure with hypoxia Status: Acute (3) Diarrhea: Qualifiers: Diarrhea type: unspecified type Qualified Code(s): R19.7 - Diarrhea, unspecified Code(s): R19.7 - Diarrhea, unspecified Status: Acute DS: Summary Hospital Course Hospital Course: # sepsis present on admission with fever, leukocytosis, lactic acidosis and tachycardia. Chest x-ray showed bibasilar atelectasis. UA is negative. Blood cultures no growth. CT abdomen and pelvis showed large volume stool in the colon including liquid stool. She was recently exposed with antibiotics. Concern for C diff diarrhea however no evidence of colitis on imaging. Stool studies were sent which came back mostly negative. C diff came back negative as well she was already started on fidaxomicin and metronidazole for suspected C diff colitis. Metronidazole was discontinued at discharge however fidaxomicin was continued at discharge to complete 10 days course Given improvement in her symptomatology and her sepsis with this treatment. She also complained of right knee pain briefly an x-ray knee was done which showed osteoarthritis with mild effusion. She did not have anyone erythema or significant restriction in range of motion or tenderness suspecting septic arthritis. # acute respiratory failure with hypoxia: Patient hypoxic on admission. She does not wear oxygen at home. No history of lung disease. She was recently hospitalized which per chart risk for DVT. CTA was done which showed no PE but showed pulmonary abnormalities of bibasilar atelectasis. Venous duplex is negative for DVT. She is weaned off oxygen during the hospital stay # diarrhea: Patient having large soft stool. Given sepsis in terms their concern for C diff. Fidaxomicin was empirically started as well as IV Flagyl. No evidence of colitis by imaging. Lipase is normal. History does mention pancreatic insufficiency which could contribute to diarrhea. She is not on pancreatic replacement treatment. Stool studies were negative. C diff came back negative as well. She could be candidate of pancreatic replacement should be evaluated as an outpatient basis. # right knee pain: X-ray showed osteoarthritis along with effusion. Improving # moderate size sliding hiatal hernia # DVT prophylaxis Lovenox # code status: Full code # diet regular diet Time Spent with Patient Time attestation: Total time spent providing and/or coordinating discharge services: 50 minutes Exam Narrative: Gen - NARD Chest - diminished breath sounds bilaterally, Normal respiratory rate. No conversational dyspnea. CV - RRR S1/S2. Telemetry showing no significant dysrhythmias Abd - Soft, NT/ND, Positive BS Ext - No pedal edema. Right knee mildly swollen no warmth or tenderness Psych - Nml mood and affect Skin - Warm and dry DS: Data Data Completed and Pending Completed studies during hospitalization: Exam Type: ? ? CA echo doppler color flow Study Info Indications ?? ? - hypoxia Complete two-dimensional, color flow and Doppler transthoracic echocardiogram is performed. Account #: ? ? [id number] Summary ? 1. Complete two-dimensional, color flow and Doppler transthoracic echocardiogram is performed. ? 2. Left ventricular chamber dimension is normal. ? 3. Left ventricular systolic function is normal, estimated at 65-70%. ? 4. The left ventricular diastolic function is grade II diastolic dysfunction. ? 5. E/e' 12 is mildly elevated. ? 6. Left atrial chamber dimension is mildly enlarged. ? 7. There is mild aortic valve sclerosis. ? 8. There is mild to moderate mitral valve regurgitation. ? 9. There i
[2022-03-23 15:55] LABS: Lyme Disease Ab (IgM), Blot Negative (Negative); Lyme Disease Ab(IgG), Blot Negative (Negative)
== END 2022-03-19 13:10 | disposition home or self-care (01) | DRG 871 ==
LOC: ANHED 21:33 → ANHIMU 03-16 02:21 → ANH2MED 03-18 16:35
PROVIDERS: Internal Medicine; Admitting Provider Internal Medicine; Emergency Provider Nurse Practitioner Family; PCP Family Medicine; Visit Provider Internal Medicine
DX: A41.9 Sepsis, unspecified organism (principal); J96.01 Acute respiratory failure with hypoxia; A04.72 Enterocolitis due to Clostridium difficile, not specified as recurrent; E87.2 Acidosis; F32.A Depression, unspecified; K21.9 Gastro-esophageal reflux disease without esophagitis; K86.89 Other specified diseases of pancreas; M81.0 Age-related osteoporosis without current pathological fracture; M17.11 Unilateral primary osteoarthritis, right knee; K44.9 Diaphragmatic hernia without obstruction or gangrene; M25.461 Effusion, right knee; G62.9 Polyneuropathy, unspecified; Z87.440 Personal history of urinary (tract) infections; Z20.822 Contact with and (suspected) exposure to COVID-19; E66.9 Obesity, unspecified; Z68.30 Body mass index [BMI] 30.0-30.9, adult; Z98.42 Cataract extraction status, left eye; Z98.41 Cataract extraction status, right eye; Z96.1 Presence of intraocular lens
CPT/HCPCS: 36415; 51701; 71045; 71275; 73562; 74177; 80048; 80053; 81003; 82274; 83605; 83690; 83735; 84484; 85025; 85027; 85610; 86140; 86617; 87040; 87045; 87177; 87209; 87272; 87426; 87427; 87493; 93005; 93306; 93970; 96360; 97161; 97165; 99285; A9270; C9803; J1650; J2405; J7030; Q9967; U0003; U0005

== ENCOUNTER 2022-04-23 11:04 | Outpatient (CLI) | payer MEDICARE, OTHER, SELFPAY ==
--- NOTE | ~2022-04-23 | US_ITS ---
EXAMINATION:US venous doppler LE RT INDICATION:Localized edema TECHNIQUE: Multiple grayscale, color flow and Doppler images of the right lower extremity deep venous systems were obtained and reviewed. COMPARISON:03/16/2022 FINDINGS: The common femoral, superficial femoral and popliteal veins demonstrate normal respiratory variation, augmentation and compressibility. Color flow is also seen within the posterior tibial, pe roneal, greater saphenous and profunda veins. IMPRESSION: 1: No lower extremity deep venous thrombosis. Reviewed, dictated and finalized at location B.
== END 2022-04-23 11:05 | disposition home or self-care (01) ==
LOC: ANHIMG 11:09
PROVIDERS: PCP Family Medicine; Visit Provider Family Medicine
DX: R60.0 Localized edema (principal)
CPT/HCPCS: 93971

== ENCOUNTER 2022-08-04 17:20 | Emergency (ER) | payer MEDICARE, OTHER, SELFPAY ==
[2022-08-04 17:48] VITALS: BP 136/70; PULSE 87; RESP 20; TEMP 36.7; O2SAT 100
[2022-08-04 17:56] VITALS: BP 141/56; PULSE 81; RESP 16; TEMP 36.7; O2SAT 97
--- NOTE | 2022-08-04 18:29 | ED.FEMALEGU ---
HPI - Female Genitourinary General Chief complaint: Urogenital-Female Stated complaint: injury Time Seen by Provider: 08/04/22 18:30 Source: patient and RN notes reviewed Mode of arrival: ambulatory Limitations: no limitations History of Present Illness HPI Narrative: 69-year-old female presented for concern for UTI. She currently reports urinary frequency and burning, onset today She states she has had several UTIs over the past few months requiring hospitalization. She endorses severe confusion as 1 of the symptoms, and wanted to be evaluated quickly before it progresses. She denies abdominal pain, hematuria, flank pain, fevers or chills. Related Data Home Medications Medication Instructions Recorded Confirmed melatonin 10 mg tablet 10 mg PO HS PRN Sleep 10/04/21 06/13/22 ascorbic acid (vitamin C) 500 mg 500 mg PO DAILY 11/30/21 06/13/22 tablet calcium carb,cit ER 600 mg-vit D3 1 tablet PO DAILY 11/30/21 06/13/22 12.5 mcg (500 unit) tablet,ext.rel (Citracal-D3 Slow Release) cholecalciferol (vitamin D3) 25 25 mcg PO DAILY 11/30/21 06/13/22 mcg (1,000 unit) tablet (Vitamin D3) Allergies Allergy/AdvReac Type Severity Reaction Status Date / Time bupropion [From Wellbutrin] AdvReac Severe Other Verified 08/04/22 17:58 codeine AdvReac Unknown Nausea Verified 08/04/22 17:58 Review of Systems Review of Systems: CONSTITUTIONAL: Denies body aches, fever, chills, or sweats. CARDIOVASCULAR: Denies chest pain, palpitations, or edema. RESPIRATORY: Denies cough or dyspnea. GASTROINTESTINAL: Denies abdominal pain, nausea, vomiting, or diarrhea. GENITOURINARY: Reports dysuria, frequency, urgency, denies hematuria, flank pain SKIN: Denies rash, itching, or wounds. MUSCULOSKELETAL: Denies back pain or myalgia. FOR[facility]LY [facility] Past Medical History Medical History Anxiety BMI 30.0-30.9,adult Cataract, left eye Chronic constipation Depression Diastolic dysfunction Diastolic dysfunction without heart failure Echocardiogram February 2021: Grade 1 Eczema Edema of right lower leg Fracture of proximal end of fibula GERD (gastroesophageal reflux disease) Hot flashes Osteoporosis Pancreatic insufficiency Peripheral neuropathy Raynauds disease Sleep hypopnea Vitamin D deficiency Surgical History Surgical History Normal colonoscopy (11/2021) Status post cataract extraction of both eyes with insertion of intraocular lens Family History Family History Father Diabetes mellitus Heart disease Family history of diabetes mellitus in first degree relative Family history of coronary artery disease Hypertension Cerebrovascular accident Family history of arthritis Mother Heart disease Family history of diabetes mellitus in first degree relative Family history of coronary artery disease Hypertension Cerebrovascular accident Diabetes mellitus Family history of arthritis Sibling Family history of diabetes mellitus in first degree relative Hypertension Family history of arthritis Social History Social History Smoking packs per day: 1 Smoking cigarettes per day: 20.0 Years smoked: 6 Smoking pack-years: 6.00 Smoking status: Former smoker Tobacco type: cigarettes Second hand tobacco smoke exposure: Yes Smoking end date: 07/25/84 Alcohol intake: never Alcohol use details: Holiday's Substance use: never Substance use type: does not use 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 Gender identity (if verbalized by the patient): Female Sexual Orientation (if Verbalized by the Patient): Straight or Heterosexual Spiritual care concerns: No Comments At time of signature, I have reviewed and agree with nursing p
== END 2022-08-04 18:43 | disposition home or self-care (01) ==
PROVIDERS: Emergency Provider Nurse Practitioner Family; PCP Family Medicine
DX: N39.0 Urinary tract infection, site not specified (principal); Z87.891 Personal history of nicotine dependence; K21.9 Gastro-esophageal reflux disease without esophagitis; M81.0 Age-related osteoporosis without current pathological fracture; G62.9 Polyneuropathy, unspecified; I73.00 Raynaud's syndrome without gangrene; E55.9 Vitamin D deficiency, unspecified
CPT/HCPCS: 81003; 87086; 87088; 99213; G0463

== ENCOUNTER 2022-08-23 08:01 | Outpatient (CLI) | payer MEDICARE, OTHER, SELFPAY ==
--- NOTE | 2022-09-12 18:13 | WPDSLEEPSTUD ---
Sleep Study Date of Study: 08/23/22 Ordering Provider: Aquilino Alcantara MD Interpreting Physician: Zoraida Monique MD Sleep Study Type: Polysomnogram Height: 1.55 m Weight: 72.575 kg Body Mass Index: 30.2 Neck Circumference (inches): 14 [place]: 3 Reason for Sleep Study Gasping for breath at night Sleep History Montse Waters is a 77-year-old woman who has had episodes of gasping for breath at night. She has a difficult time going to sleep and staying asleep. She has tried melatonin. She rarely awakens from sleep feeling short of breath. She occasionally awakens at night with heartburn, belching or coughing. She occasionally snores, rarely loudly enough that others complain about it. She occasionally has trouble sleeping with a cold. She rarely wakes up gasping for breath at night. She rarely has breathing problems at night observed by her . She occasionally sweats excessively at night. She does not notice her heart pounding or beating irregularly night. She occasionally falls asleep during the day, rarely falls asleep involuntarily and never falls asleep while driving. She does not have loss of muscle tone with strong emotion. She does not have daytime difficulties due to excessive sleepiness. She does not feel paralyzed on waking or falling asleep. She does not have vivid dreamlike scenes on waking or falling asleep. She does not feel afraid to go to sleep. She occasionally has nightmares. She frequently remembers her dreams. She rarely has racing thoughts. She occasionally feels sad, depressed or anxious. She does not have muscular tension. She rarely notices parts of her body jerking. She occasionally kicks at night. She frequently has crawling and aching feelings in her legs and leg pain during the night. She rarely has morning jaw pain. She rarely grinds her teeth during sleep. She frequently is bothered by pain during the day. She rarely is awakened by pain at night. She occasionally wakes up feeling stiff in the morning. She frequently wakes with sore achy muscles and occasionally awakens with pain in the neck and spine. She has headaches, depression and memory problems. Normal bedtime varies. It takes her about 15 minutes to fall asleep. She may wake 1 or 2 times at night to urinate and then is able to return to sleep within 10 minutes. She generally wakes around 10:00 a.m.. She estimates getting 7-8 hours of sleep most nights. She has the same schedule on weekends. Habits: Quit tobacco years ago. Caffeine 2-3 servings a week. Alcohol infrequently, over the holidays. [facility] Past Medical History Medical History Anxiety BMI 30.0-30.9,adult BMI 32.0-32.9,adult Cataract, left eye Chronic constipation Depression Diastolic dysfunction Diastolic dysfunction without heart failure Echocardiogram February 2021: Grade 1 Eczema Edema of right lower leg Fracture of proximal end of fibula GERD (gastroesophageal reflux disease) Hot flashes Osteoporosis Pancreatic insufficiency Peripheral neuropathy Post-COVID chronic dyspnea Raynauds disease Sleep hypopnea Vitamin D deficiency Surgical History Surgical History Normal colonoscopy (11/2021) Status post cataract extraction of both eyes with insertion of intraocular lens Family History Family History Father Diabetes mellitus Heart disease Family history of diabetes mellitus in first degree relative Family history of coronary artery disease Hypertension Cerebrovascular accident Family history of arthritis Mother Heart disease Family history of diabetes mellitus in first degree relative Family history of coronary artery disease Hypertension Cerebrovascular accident Diabetes mellitus Family history of arthritis Sibling Family history of di
[2022-09-12 18:38] VITALS: BMI 30.2
== END 2022-08-24 04:23 | disposition home or self-care (01) ==
LOC: ANHCSM 08:03
PROVIDERS: PCP Family Medicine; Visit Provider Family Medicine
DX: G47.30 Sleep apnea, unspecified (principal); G47.33 Obstructive sleep apnea (adult) (pediatric)
CPT/HCPCS: 95810

== ENCOUNTER 2023-01-07 11:18 | Outpatient (CLI) | payer MEDICARE, OTHER, SELFPAY ==
[2023-01-07 11:49] LABS: Basophils Percent Auto 0.5 % (0.2-1.2); Eosinophils Absolute Auto 0.1 K/mm3 (0-0.3); Eosinophils Percent Auto 3.3 % (0-4.4); Hematocrit 40.6 % (37.0-47.0); Hemoglobin 13.3 g/dL (12.0-15.0); Immature Granulocyte Absolute 0.01 K/mm3 (0.00-0.031); Immature Granulocyte Percent A 0.2 % (0-0.5); Lymphocytes Absolute Auto 1.46 K/mm3 (0.9-3.2); Lymphocytes Percent Auto 34.8 % (18.3-44.2); Mean Corpuscular HGB Conc 32.8 g/dl (32-36); Mean Corpuscular Volume 91.4 fl (80-100); Mean Platelet Volume 10.5 fl (7.4-10.4); Monocytes Absolute Auto 0.5 K/mm3 (0.1-0.6); Monocytes Percent Auto 11.4 % (2.6-8.5); Neutrophils Absolute Auto 2.1 K/mm3 (1.3-6.7); Neutrophils Percent Auto 49.8 % (45.5-73.1); Platelet Count Result 231 k/mm3 (150-375); Red Blood Count 4.44 M/mm3 (4.2-5.4); Red Cell Distribution Width 13.3 % (11.5-14.5); White Blood Count 4.2 K/mm3 (4.5-10.0)
[2023-01-07 12:03] LABS: Anion Gap 0 mmol/L (8-16); Blood Urea Nitrogen 20 mg/dL (7-17); Calcium 9.4 mg/dL (8.4-10.2); Carbon Dioxide 34 mmol/L (22-30); Chloride 103 mmol/L (98-107); Estimated Glomerular Filt Rate 54; Glucose 114 mg/dL (65-110); Potassium 4.8 mmol/L (3.4-5.0); Sodium 137 mmol/L (137-145)
[2023-01-07 12:35] LABS: Thyroid Stimulating Hormone 0.609 uIU/mL (0.465-4.680)
== END 2023-01-07 11:19 | disposition home or self-care (01) ==
PROVIDERS: PCP Family Medicine; Visit Provider Family Medicine
DX: D64.9 Anemia, unspecified (principal); I51.89 Other ill-defined heart diseases; G47.33 Obstructive sleep apnea (adult) (pediatric); F32.0 Major depressive disorder, single episode, mild
CPT/HCPCS: 36415; 80048; 82728; 84443; 85025

== ENCOUNTER 2023-01-27 08:30 | Outpatient (RCR) | payer SELFPAY | END 2023-02-02 15:25 | disposition home or self-care (01) | LOC: ANHCPREHAB 08:30 | PROVIDERS: PCP Family Medicine; Visit Provider Family Medicine | DX: I50.9 Heart failure, unspecified (principal) | CPT/HCPCS: 99199 ==

== ENCOUNTER 2023-08-25 14:37 | Inpatient (IN) | payer MEDICARE, OTHER, SELFPAY ==
[2023-08-25] VITALS (9 sets, daily range): BP systolic 121–174; BP diastolic 48–96; PULSE 65–70; RESP 11–100; TEMP 36.6–37.1; O2SAT 17–100; BMI 33.7; BMI 33.9
--- NOTE | ~2023-08-25 | US_ITS ---
EXAMINATION: US venous doppler [facility] DATE: 08/26/2023 09:59 INDICATION: Left lower limb pain. TECHNIQUE: Grayscale ultrasound images without and with compression and Doppler ultrasound images of the left lower extremity veins were obtained. COMPARISON: Ultrasound 03/16/2022 FINDINGS: The visualized portions of left common femoral vein, profunda (deep) femoral vein, femoral vein, popl iteal vein, peroneal veins, posterior tibial veins, and greater saphenous vein outflow are patent. IMPRESSION: 1. No deep venous thrombosis. Reviewed, dictated and finalized at location A. ICAL REVIEW SPECIALIST
--- NOTE | ~2023-08-25 | CT_ITS ---
EXAMINATION: CTA BRAIN/CAROTID DATE: 08/25/2023 16:44 INDICATION: Dizziness and vertigo. TECHNIQUE: Computed tomographic angiography (CTA) of the head and neck was performed with 100 mL Omni paque-350 intravenous contrast. Multiplanar reconstructions and maximum intensity projection 3D-recon structions of the carotid arteries and of the intracranial arteries were created by the technologist on a separate workstation. Precontrast CT of the head was also obtained. Automated exposure control and iterative reconstruction technique were employed.The dose-length product was 1770.93 mGy-cm. COMPARISON: None. FINDINGS: Carotid arteries: Visualized portion of the thoracic aorta is normal in caliber with no dissection. There is a small am ount of fluid in the superior pericardial recesses. Right vertebral artery is dominant. There is no e vident atherosclerotic plaque with 0% stenosis of the right and left carotid bulbs relative to normal distal artery lumen diameter (NASCET criteria). Mild emphysema and dependent atelectasis in the visu alized upper lungs. Moderate cervical spondylosis. Head: No acute intracranial hemorrhage, acute infarction or abnormal extra axial fluid collection. There is mild scattered white matter hypoattenuation consistent with chronic small vessel ischemic disease. S ymmetric prominence of the sulci and subarachnoid spaces overlying the convexities consistent with mo derate age-appropriate diffuse cerebral volume loss. Ventricles are normal and symmetric. No mass/mas s effect. No abnormally enhancing brain lesions on the postcontrast imaging. Changes of bilateral int raocular lens replacement. The orbits, paranasal sinuses and mastoid air cells are normal. Intracranial arteries Atherosclerotic calcific lesions with <50% stenosis at the bilateral carotid siphons. The right verte bral artery is dominant. The distalmost left vertebral artery is diminutive following the takeoff of the left posterior inferior cerebellar artery. There is no significant stenosis along the basilar art lior. There are no aneurysms identified. The bilateral A1 and P1 segments are patent. The right P1 seg ment is diminutive with the majority of flow to the right posterior cerebral artery supplied via a la rger caliber patent right posterior communicating artery. At the confluence with the P1 segment there is a moderate, 50-70% stenosis of the distal right posterior communicating artery and proximal most T2 segment. Cerebral arterial arborization appears symmetric. IMPRESSION: 1. No evident atherosclerotic plaque with 0 0% stenosis of the right and left carotid bulbs relative to normal distal artery lumen diameter (NASCET criteria). 2. No acute intracranial process or abnormally enhancing brain lesions. 3. Moderate (50-70%) stenosis of the distal right posterior communicating artery and proximal P2 segm ent either side of the confluence with a diminutive right P1 segment. 4. Age-related changes the brain including moderate diffuse volume loss and mild scattered nonspecifi c white matter hypoattenuation consistent with chronic small vessel ischemic disease. Reviewed, dictated and finalized at location A. ORING MACHINE OPERATOR IMPRESSION: 1. No evident atherosclerotic plaque with 0 0% stenosis of the right and left c arotid bulbs relative to normal distal artery lumen diameter (NASCET criteria). 2. No acute intracranial process or abnormally enhancing brain lesions. 3. Moderate (50-70%) stenosis of the distal right posterior communicating arter y and proximal P2 segment either side of the confluence with a diminutive right P1 segment. 4. Age-related changes the brain including moderate diffuse volume loss and mil d scattered nonspecific white matter hypoattenuation consistent with chronic sm all vessel ischemic disease.
--- NOTE | ~2023-08-25 | MR_ITS ---
EXAMINATION: MR brain/brain stem wo/w con DATE: 08/26/2023 09:17 INDICATION: Vertigo. TECHNIQUE: Magnetic resonance imaging (MRI) of the brain and brainstem was performed without and with 15 mL MultiHance intravenous contrast. COMPARISON: Head CT 08/25/2023 FINDINGS: There are scattered areas of nonspecific increased T2-weighted signal intensity in the cere bral white matter. 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 There is a developmental venous anom anastacio in right frontal lobe. There is no intracranial hemorrhage, acute infarction, or abnormal intracr anial mass lesion. The ventricles are normal in size. The paranasal sinuses are clear. There are like ly changes of ocular lens replacement surgeries. There is a trace left mastoid effusion. IMPRESSION: 1. 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 2. Mild nonspecific cerebral white matter disease, which likely represents chronic small vessel ische terrie disease. Reviewed, dictated and finalized at location A. IGERATION INSULATOR IMPRESSION: 1. 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 2. Mild nonspecific cerebral white matter disease, which likely represents food dehydrator operator rasta small vessel ischemic disease.
--- NOTE | ~2023-08-25 | XR_ITS ---
EXAMINATION: XR chest 1V DATE: 08/25/2023 18:49 INDICATION: Hypoxia TECHNIQUE: frontal view of the chest was obtained. COMPARISON: Chest radiograph and CT dated 03/16/2022 FINDINGS: Lung volumes are decreased. Mild opacities in the left lower lung zone which represent atelectasis or pneumonia. No pneumothorax or definitive pleural effusion. Heart size is normal. Mild upper thoracic levocurvature with moderate spondylosis. IMPRESSION: 1. Small lung volumes with mild opacities in the left lower lung zone which could represent atelectas is or pneumonia. Reviewed, dictated and finalized at location A. BOTOMIST IMPRESSION: 1. Small lung volumes with mild opacities in the left lower lung zone which cou ld represent atelectasis or pneumonia.
--- NOTE | 2023-08-25 14:51 | ECG_ITS ---
Measurements Intervals Swisher Rate: 67 P: 68 SD: 160 QRS: -18 QRSD: 87 T: 19 QT: 394 QTc: 418 Interpretive Statements SINUS RHYTHM BORDERLINE LEFTWARD AXIS OTHERWISE NORMAL ECG COMPARED TO ECG 03/16/2022 02:11:55 NO DIFFERENCE Electronically Signed On 08-26-2023 7:05:45 PHYSICAL TRAINER by Sami Guillen M.D.
[2023-08-25 14:58] LABS: Glucose Point of Care 136 mg/dl (65-105)
[2023-08-25] MEDS: diazePAM INJ (*CRX) 10 MG/2 ML SYRINGE 2 MG IV PUSH (15:10)
--- NOTE | 2023-08-25 15:26 | ED.DIZZY ---
HPI - Dizziness General Chief Complaint: Dizziness Stated Complaint: dizziness, n/v Time Seen by Provider: 08/25/23 14:50 History of Present Illness HPI Narrative: Patient states that she woke up this morning with intense sensation of vertigo, and she has not been able to stop throwing up unless she stays very very still and lies on her side, she has not had symptoms like this before, she has no recent ear infection, no fevers or chills, no numbness or weakness or difficulty speaking. No recent trauma. She does state that 2 days ago she noticed a pain that moved from her right neck up to behind her ear. Related Data Home Medications Medication Instructions Recorded Confirmed ascorbic acid (vitamin C) 500 mg 500 mg PO DAILY 11/30/21 06/07/23 tablet calcium carb,cit ER 600 mg-vit D3 1 tablet PO DAILY 11/30/21 06/07/23 12.5 mcg (500 unit) tablet,ext.rel (Citracal-D3 Slow Release) cholecalciferol (vitamin D3) 25 25 mcg PO DAILY 11/30/21 06/07/23 mcg (1,000 unit) tablet (Vitamin D3) glucosamine-chondroitin 250 mg-200 2 tablet PO TID 11/04/22 06/07/23 mg tablet (Osteo Bi-Flex) methylsulfonylmethane 1,000 mg 1,000 mg PO ONCE 06/07/23 06/07/23 capsule (MSM) Allergies Allergy/AdvReac Type Severity Reaction Status Date / Time bupropion [From Wellbutrin] AdvReac Severe Other Verified 08/25/23 14:38 codeine AdvReac Unknown Nausea Verified 08/25/23 14:38 Review of Systems Review of Systems: All systems reviewed & are unremarkable except as noted in HPI and below [facility] Past Medical History Medical History (Updated 08/25/23 @ 17:54 by Sanam Bond MD) Adult BMI 33.0-33.9 kg/sq m Anemia Anxiety BMI 30.0-30.9,adult BMI 32.0-32.9,adult Cataract, left eye Chronic constipation Depression Diastolic dysfunction Diastolic dysfunction without heart failure Echocardiogram February 2021: Grade 1 Eczema Edema of right lower leg Fracture of proximal end of fibula GERD (gastroesophageal reflux disease) Hot flashes Left wrist tendonitis Osteoporosis Pancreatic insufficiency Patellofemoral arthralgia of right knee Peripheral neuropathy Post-COVID chronic dyspnea Raynauds disease Sleep hypopnea Vitamin D deficiency Surgical History Surgical History Normal colonoscopy (11/2021) Status post cataract extraction of both eyes with insertion of intraocular lens Family History Family History Father Diabetes mellitus Heart disease Family history of diabetes mellitus in first degree relative Family history of coronary artery disease Hypertension Cerebrovascular accident Family history of arthritis Mother Heart disease Family history of diabetes mellitus in first degree relative Family history of coronary artery disease Hypertension Cerebrovascular accident Diabetes mellitus Family history of arthritis Sibling Family history of diabetes mellitus in first degree relative Hypertension Family history of arthritis Social History Social History Smoking packs per day: 1 Smoking cigarettes per day: 20.0 Years smoked: 4 Smoking pack-years: 4.00 Smoking status: Former smoker Tobacco type: cigarettes Second hand tobacco smoke exposure: Yes Smoking end date: 07/25/84 Alcohol intake: current Alcohol use details: Holiday's Substance use: never Substance use type: does not use Lack of Transportation: No Lack of Food: Never True Current Housing: I Have Housing Concerned About Future Housing: No Difficulty Paying Gas/Electric Bills: No Difficulty Paying for Meds: No Currently Unemployed: No Education: High School Diploma/GED Difficulty w/ Childcare or Family Care: No Living arrangements: with family Occupation/Education: retired 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
[2023-08-25 15:42] LABS: Appearance Urine Clear (Clear); Bilirubin Urine Negative (Negative); Blood Urine Negative (Negative); Color Urine Yellow (Yellow); Glucose Urine UA Negative (Negative); Ketones Urine Negative (Negative); Leukocyte Esterase Ur Negative LEU/UL (Negative); Nitrate Urine Negative (Negative); Protein Urine Negative (Negative); Specific Grav Ur 1.011 (1.001-1.035); Urobilinogen Urine 0.2 mg/dL (<2.0); pH Urine 7.5 (5.0-9.0)
[2023-08-25 15:42] LABS: Basophils Percent Auto 0.5 % (0.2-1.2); Eosinophils Absolute Auto 0.1 K/mm3 (0-0.3); Eosinophils Percent Auto 2.6 % (0-4.4); Hematocrit 38.6 % (37.0-47.0); Hemoglobin 12.4 g/dL (12.0-15.0); Immature Granulocyte Absolute 0.01 K/mm3 (0.00-0.031); Immature Granulocyte Percent A 0.2 % (0-0.5); Lymphocytes Absolute Auto 0.86 K/mm3 (0.9-3.2); Lymphocytes Percent Auto 20.1 % (18.3-44.2); Mean Corpuscular HGB Conc 32.1 g/dl (32-36); Mean Corpuscular Hemoglobin 29.2 pg (26-34); Mean Platelet Volume 10.6 fl (7.4-10.4); Monocytes Absolute Auto 0.3 K/mm3 (0.1-0.6); Monocytes Percent Auto 7.9 % (2.6-8.5); Neutrophils Absolute Auto 2.9 K/mm3 (1.3-6.7); Neutrophils Percent Auto 68.7 % (45.5-73.1); Platelet Count Result 233 k/mm3 (150-375); Red Blood Count 4.24 M/mm3 (4.2-5.4); Red Cell Distribution Width 12.7 % (11.5-14.5); White Blood Count 4.3 K/mm3 (4.5-10.0)
[2023-08-25 15:52] LABS: Add Urine Microscopic? NO
[2023-08-25 15:52] LABS: Alanine Aminotransferase 15 U/L (6-35); Albumin Level 4.2 g/dL (3.5-5.1); Alkaline Phosphatase 63 U/L (38-126); Anion Gap 7 mmol/L (8-16); Aspartate Amino Transferase 22 U/L (14-36); Bilirubin,Total 0.6 mg/dL (0.2-1.3); Blood Urea Nitrogen 23 mg/dL (7-17); Calcium 9.1 mg/dL (8.4-10.2); Carbon Dioxide 27 mmol/L (22-30); Chloride 103 mmol/L (98-107); Estimated CRCL calculation 48 ml/min; Estimated Glomerular Filt Rate > 60; Glucose 147 mg/dL (65-110); Potassium 4.4 mmol/L (3.4-5.0); Sodium 137 mmol/L (137-145)
[2023-08-25] MEDS: METOCLOPRAMIDE HCL INJ 10 MG/2 ML VIAL IV PUSH (16:32)
--- NOTE | 2023-08-25 16:33 | PC.NURSE ---
CT notified this RN pt was having N/V and unable to have the imaging completed. This RN spoke to Dr Bond who put orders in for Reglan. Reglan given as ordered IVP in CT scan.
--- NOTE | 2023-08-25 18:43 | PC.NURSE ---
Pt to XRAY via stretcher at this time.
--- NOTE | 2023-08-25 19:16 | PC.NURSE ---
Assumed care of pt from KOMAL Howell at this time.
--- NOTE | 2023-08-25 23:13 | ADMGEN ---
This patient, Montse Waters, was admitted to [facility] Surg Room 316-02. Patient/family oriented to hospital policies and general routines including ID bracelet, bed and alarms, visiting hours, pain management, procedures, bathroom and other care routines, personal items, smoking policy, room service/diet, and visiting hours. Information on how to activate the Rapid Response Team has been discussed. Patient/Family are encouraged to report perceived risks to care and to ask questions if they do not understand what they are told or what they should do.
--- NOTE | 2023-08-25 23:37 | PM.IMHP ---
H&P: HPI History of Present Illness Date/Time: 08/25/23 18:30 Chief Complaint: Dizziness, nausea, vomiting. Narrative: This is a very pleasant 78-year-old female with diastolic dysfunction, gastroesophageal reflux disease, and anxiety who presented to the emergency department via EMS from home for evaluation of dizziness, nausea, and vomiting. The patient provides the following history. She felt fine when she went to bed last night and upon waking this morning she rolled over to check the time on her phone when she developed sudden onset vertigo ?it felt like the wall was moving.? She eventually got to the bathroom by holding onto nearby chairs and bingham to prevent her from falling. While in the bathroom her symptoms seemed to improve and she was able to go about her morning, taking her medications and brushing her teeth. She went back to her bedroom to get dressed and when she bent over the vertigo returned and it was severe. She was nauseated and reports having several episodes of emesis thereafter. The vertigo is worse with any movement and at times even when moving her eyes. She has never had such severe symptoms. She denies visual changes, tinnitus, facial droop, difficulty speaking and swallowing, focal weakness, and paresthesias. She has not had any recent falls or head trauma. She also denies recent cold and flu symptoms. No chest or pleuritic pain, palpitations, sensations of racing heart, or fluttering. In the ED: She was afebrile on arrival with stable vital signs. Her labs were pretty unremarkable although BUN was a bit elevated 23 and her random glucose was 147. Urinalysis was unremarkable. CTA of the head and neck showed age-related changes, no acute intracranial process, moderate (50 to 70%) stenosis of the distal right posterior communicating artery, no significant plaquing of the carotid arteries,, aneurysms, or large vessel occlusions. Chest x-ray showed small lung volumes with mild opacities in lower lung zones. EKG showed sinus rhythm with no acute ST segment changes or prolonged QT interval. She received 2 mg IV diazepam, 25 mg p.o. meclizine, and 10 mg IV metoclopramide with some improvement in her symptoms. She is being admitted in this setting for closer monitoring and further workup. Review of Systems Review of Systems: Twelve systems were reviewed and are negative except for as per HPI. [facility] Past Medical History Medical History (Updated 08/25/23 @ 23:48 by Verna Jarvis PA-C) Anemia Anxiety Chronic constipation Depression Diastolic dysfunction Eczema Gastroesophageal reflux disease Osteoporosis Pancreatic insufficiency Peripheral neuropathy Post-COVID chronic dyspnea Raynauds disease Sleep hypopnea Vitamin D deficiency Surgical History Surgical History Normal colonoscopy (11/2021) Status post cataract extraction of both eyes with insertion of intraocular lens Family History Family History Father Diabetes mellitus Heart disease Family history of diabetes mellitus in first degree relative Family history of coronary artery disease Hypertension Cerebrovascular accident Family history of arthritis Mother Heart disease Family history of diabetes mellitus in first degree relative Family history of coronary artery disease Hypertension Cerebrovascular accident Diabetes mellitus Family history of arthritis Sibling Family history of diabetes mellitus in first degree relative Hypertension Family history of arthritis Social History Social History (Updated 08/25/23 @ 23:45 by Verna Jarvis PA-C) Social History: Surrogate medical decision maker: Gómez Waters, spouse. Code status: Full code. Smoking packs per day: 1 Smoking cigarettes per day: 20.0 Years smoked: 20 Smoking pack-years: 20.00 Smoking status: Former smoker
[2023-08-26] VITALS (11 sets, daily range): BP systolic 118–127; BP diastolic 41–65; PULSE 61–80; RESP 16–18; TEMP 36.1–36.7; O2SAT 93–95
[2023-08-26] MEDS: PROMETHAZINE HCL 25 MG/ML AMPUL 12.5 MG IV PUSH (00:01)
[2023-08-26 07:19] LABS: Hematocrit 39.9 % (37.0-47.0); Hemoglobin 13.2 g/dL (12.0-15.0); Mean Corpuscular HGB Conc 33.1 g/dl (32-36); Mean Corpuscular Hemoglobin 29.5 pg (26-34); Mean Corpuscular Volume 89.1 fl (80-100); Mean Platelet Volume 10.9 fl (7.4-10.4); Platelet Count Result 257 k/mm3 (150-375); Red Blood Count 4.48 M/mm3 (4.2-5.4); Red Cell Distribution Width 12.5 % (11.5-14.5); White Blood Count 6.9 K/mm3 (4.5-10.0)
[2023-08-26 07:24] LABS: Anion Gap 7 mmol/L (8-16); Blood Urea Nitrogen 19 mg/dL (7-17); Calcium 9.4 mg/dL (8.4-10.2); Carbon Dioxide 28 mmol/L (22-30); Chloride 105 mmol/L (98-107); Cholesterol 253 mg/dL (0-200); Estimated CRCL calculation 49 ml/min; Estimated Glomerular Filt Rate > 60; Glucose 102 mg/dL (65-110); HDL Direct 76 mg/dL; Magnesium 2.2 mg/dL (1.6-2.3); Potassium 4.2 mmol/L (3.4-5.0); Sodium 140 mmol/L (137-145); Triglycerides 83 mg/dL (<150)
[2023-08-26 07:35] LABS: LDL Cholesterol Direct 136 mg/dL
--- NOTE | 2023-08-26 09:52 | WPDNEURCNPN ---
Assessment and Plan Assessment and plan (1) Vertigo: Code(s): R42 - Dizziness and giddiness Status: Acute Assessment and Plan: Montse Waters is a 78 year old female history of GERD, anxiety, anemia, WILY, neuropathy, HLD, Raynaud disease, anxiety, depression presenting for evaluation of dizziness, nausea and vomiting. MRI brain is negative for acute stroke. Symptoms have improved as well. Seems to be peripheral in etiology -- likely BPPV. Also considering TIA. CTA brain/carotid showed moderate 50-70% stenosis of the distal R PCOM, and proximal P2 segment, with diminutive appearance of R P1, but no evidence of vertebrobasilar insufficiency. BP was also elevated on presentation to 170s, but is more stable now in the 120-130s systolic. - Recommend vestibular therapy - Agree with initiation of Aspirin 81mg daily and Lipitor 40mg daily - Optimize blood pressure control (2) Stenosis of cerebral artery: Code(s): I66.9 - Occlusion and stenosis of unspecified cerebral artery Status: Acute Consult date: 08/26/23 Reason for consult: Dizziness HPI: Montse Waters is a 78 year old female history of GERD, anxiety, anemia, WILY, neuropathy, HLD, Raynaud disease, anxiety, depression presenting for evaluation of dizziness, nausea and vomiting. Patient felt at her baseline when she went to bed on 08/24 PM. However when she woke up the following morning, she developed sudden onset vertigo. She describes the sensation as the wall moving. She was able to get up and go to the bathroom, had to hold on to furniture to prevent her from falling. Initially she had improvement in her symptoms, but when she bent down the vertigo returned. She was nauseated and also had several episodes of emesis. The dizziness is worse with any movement of the head or eyes. She has never had such severe symptoms. She denies any double vision, tinnitus, speech changes, focal weakness/numbness. Due to persistent nature of her symptoms, she presented to [facility]. Her EKG showed sinus rhythm. Initial BP was in the 170s systolic. CT head was negative for any acute changes. CTA brain/carotid showed moderate 50-70% stenosis of the distal R PCOM, and proximal P2 segment, with diminutive appearance of R P1. In the ER she received diazepam, meclizine, and metoclopramide with some improvement in her symptoms. She was admitted for further work-up. MRI brain was negative for acute stroke. She has been started on Aspirin 81mg daily and Lipitor 40mg daily. Her LDL is 136. She reports feeling better today. Review of Systems Review of Systems: All systems reviewed & are unremarkable except as noted in HPI and below PMFSH Past Medical History Medical History Anemia Anxiety Chronic constipation Depression Diastolic dysfunction Eczema Gastroesophageal reflux disease Osteoporosis Pancreatic insufficiency Peripheral neuropathy Post-COVID chronic dyspnea Raynauds disease Sleep hypopnea Vitamin D deficiency Surgical History Surgical History Normal colonoscopy (11/2021) Status post cataract extraction of both eyes with insertion of intraocular lens Family History Family History Father Diabetes mellitus Heart disease Family history of diabetes mellitus in first degree relative Family history of coronary artery disease Hypertension Cerebrovascular accident Family history of arthritis Mother Heart disease Family history of diabetes mellitus in first degree relative Family history of coronary artery disease Hypertension Cerebrovascular accident Diabetes mellitus Family history of arthritis Sibling Family history of diabetes mellitus in first degree relative Hypertension Family history of arthritis Social History Social History (Reviewed 08/26/23 @ 13
[2023-08-26] MEDS: ASCORBIC ACID 500 MG TABLET PO (11:42)
[2023-08-26] MEDS: DULoxetine HCL 60 MG CAPSULE.DR PO (11:42)
[2023-08-26] MEDS: CHOLECALCIFEROL 1,000 UNITS TABLET 1000 UNITS PO (11:42)
[2023-08-26] MEDS: ACETAMINOPHEN 325 MG TABLET 650 MG PO (11:42)
[2023-08-26] MEDS: carvediloL 6.25 MG TABLET PO ×2 (11:43→21:15)
[2023-08-26] MEDS: PANTOPRAZOLE 40 MG TABLET PO ×2 (11:44→21:15)
[2023-08-26] MEDS: GABAPENTIN 300 MG CAPSULE 600 MG PO ×2 (11:44→18:32)
[2023-08-26] MEDS: ATORVASTATIN 40 MG TABLET PO (11:44)
[2023-08-26] MEDS: ASPIRIN 81 MG ENTERIC TABLET PO (11:45)
[2023-08-26] MEDS: DICLOFENAC SODIUM 1% 100 GM GEL (*BKC) 1 APPLIC TOPICAL ×3 (11:45→21:17)
--- NOTE | 2023-08-26 15:06 | PM.IMPN ---
Progress Note: A&P Assessment and Plan (1) Vertigo: Code(s): R42 - Dizziness and giddiness Status: Acute Assessment and Plan: CT negative for acute process Neurology consulted MRI normal likely BPV PT ordered for vestibular therapy Diazepam available p.r.n (2) Stenosis of cerebral artery: Code(s): I66.9 - Occlusion and stenosis of unspecified cerebral artery Status: Acute Assessment and Plan: Head and neck CTA showed moderate stenosis of the distal right posterior communicating artery and proximal P2 segment on either side of the confluence with a diminutive right P1 segment started on statin aspirin lipid panel: total 253; triglycerides 83; LDL 136 (3) Diastolic dysfunction: Code(s): I51.89 - Other ill-defined heart diseases Status: Acute Assessment and Plan: appears euvolemic trace edema of the lower extremities Left leg venous Doppler negative for DVT. Subjective Date/time seen: 08/26/23 15:06 Review of Systems Review of Systems: . All systems reviewed & are unremarkable except as noted in HPI and below Exam Narrative: General: Well-developed, nontoxic-appearing female in no distress. HEENT: Normocephalic, atraumatic. PERRLA, EOMI. Neck: Supple. No obvious carotid bruits. Respiratory: Lungs clear to auscultation Cardiovascular: RRR with S1-S2. Gastrointestinal: Abdomen is soft, nontender, and nondistended with positive bowel sounds. Skin: Warm and dry. No rash or lesions Extremities: No cyanosis or clubbing. Trace lower extremity edema, left greater than right. With further questioning she reports that her left leg was more swollen couple of weeks ago and was a bit painful but that has improved. No palpable knots or cords. Negative Ben sign bilaterally. Radial and pedal pulses intact. Neurological: Alert and oriented x4. Cranial nerves 2-12 are grossly intact. Speech is clear. No facial asymmetry. No pronator drift. Gait not assessed due to severe vertigo. No gross focal deficits of the upper lower extremities. Psychiatric: Pleasant and cooperative with normal mood and affect. Judgment and insight intact. Objective Data Vital Signs Vital Signs: Vital Signs - 24 hr 08/25/23 15:11 08/25/23 15:15 08/25/23 16:44 Temperature Pulse Rate 70 65 67 Respiratory Rate 17 100 H Blood Pressure 161/83 H 142/96 H Pulse Oximetry 91 17 L Oxygen Delivery 08/25/23 17:41 08/25/23 18:22 08/25/23 22:21 Temperature 98.7 F Pulse Rate 69 70 70 Respiratory Rate 12 18 19 Blood Pressure 129/50 L 121/53 L 125/48 L Pulse Oximetry 100 94 95 Oxygen Delivery 08/25/23 22:52 08/26/23 00:15 08/26/23 00:00 Temperature 97.8 F Pulse Rate 70 61 Respiratory Rate 16 Blood Pressure 137/57 L Pulse Oximetry 97 Oxygen Delivery Room Air 08/26/23 04:00 08/26/23 06:35 08/26/23 11:43 Temperature 97.0 F L Pulse Rate 66 71 80 Respiratory Rate 16 Blood Pressure 118/46 L Pulse Oximetry 93 Oxygen Delivery 08/26/23 13:46 Temperature 97.7 F Pulse Rate 62 Respiratory Rate 16 Blood Pressure 127/41 L Pulse Oximetry 95 Oxygen Delivery Intake/Output Intake/Output: Intake & Output 08/23/23 08/24/23 08/25/23 08/26/23 23:59 23:59 23:59 23:59 Intake Total 120 Output Total 400 Balance -400 120 Meds/Results Medications: Active Medications Generic Name Dose Route Start Last Admin Trade Name Freq PRN Reason Stop Dose Admin Acetaminophen 650 mg 08/25/23 23:52 08/26/23 11:42 Acetaminophen 325 Mg Tablet PO 650 mg Q6H PRN Administration Mild Pain (1-3) or Fever Ascorbic Acid 500 mg 08/26/23 09:00 08/26/23 11:42 Ascorbic Acid 500 Mg Tablet PO 500 mg DAILY KEESHA Administration Aspirin 81 mg 08/26/23 09:00 08/26/23 11:45 Aspirin 81 Mg Enteric Tablet PO 81 mg QAM KEESHA Administration Atorvastatin Calcium 40 mg 08/26/23 09:00 08/26/23 11:44
[2023-08-26] MEDS: ONDANSETRON INJ 4 MG/2 ML VIAL IV PUSH (15:11)
--- NOTE | 2023-08-26 23:53 | ECHO_ITS ---
Patient Info Name: Montse Waters Age: 78 years : 1945 Gender: Female Ht: 61 in Wt: 179 lbs BSA: 1.91 m2 HR: 66 bpm BP: 137 / 57 mmHg Heart Rhythm: Sinus Rhythm Technical Quality: Fair Exam Date: 08/26/2023 10:25 AM Exam Location: Echo Lab Patient Status: Outpatient Admit Date: 08/25/2023 Staff Ordering Physician: Verna Jarvis PA-C Senior Director Marketing: Natalia Love RDCS Attending Provider: Dany Kline MD Referring Physician: Simona ARRIAGA; Exam Type: CA echo doppler color flow Study Info Indications - vertigo, cerebral artery stenosis Complete two-dimensional, color flow and Doppler transthoracic echocardiogram is performed. Summary 1. Complete two-dimensional, color flow and Doppler transthoracic echocardiogram is performed. 2. Left ventricular chamber dimension is normal. 3. Left ventricular systolic function is normal, estimated at 60-65%. 4. The left ventricular diastolic function is grade I diastolic dysfunction. 5. E/e' 15 is elevated. 6. Left atrial chamber dimension is moderately enlarged. 7. The mitral valve has mildly calcified leaflets and mildly calcified annulus. 8. There is mild mitral valve regurgitation. 9. There is mild to moderate tricuspid valve regurgitation. 10. No pulmonary hypertension, estimated pulmonary arterial systolic pressure is 36 mmHg. Left Ventricle E/e' 15 is elevated. Left ventricular chamber dimension is normal. Left ventricular systolic function is normal, estimated at 60-65%. The left ventricular diastolic function is grade I diastolic dysfunction. Right Ventricle Right ventricular systolic function is normal and with normal TAPSE 2.0 cm. Right ventricular chamber dimension is normal. Left Atria Left atrial chamber dimension is moderately enlarged. Right Atria Right atrial chamber dimension is normal. Aortic Valve The aortic valve is trileaflet. There is no aortic valve stenosis. There is no aortic valve regurgitation. Pulmonic Valve There is no pulmonic regurgitation. Mitral Valve The mitral valve has mildly calcified leaflets and mildly calcified annulus. There is no mitral valve stenosis. There is mild mitral valve regurgitation. Tricuspid Valve There is mild to moderate tricuspid valve regurgitation. No pulmonary hypertension, estimated pulmonary arterial systolic pressure is 36 mmHg. Pericardium/Pleural There is no pericardial effusion. Inferior Vena Cava Normal inferior vena cava with >50% collapse upon inspiration consistent with normal right atrial pressure, 5 mmHg. Aorta The aortic root size at the sinus of Valsalva is normal. Left Ventricular Outflow Tract Name Value Normal LVOT 2D LVOT Diameter 2.0 cm LVOT Doppler LVOT Peak Gradient 4 mmHg LVOT Mean Gradient 2 mmHg LVOT VTI 26 cm LVOT VTI/AV VTI Ratio 0.7 LVOT Stroke Volume 78 ml LVOT CO 4.9 l/min LVOT CI 2.6 l/min/m2 Pulmonic Valve Name
[2023-08-27] VITALS: PULSE 71
[2023-08-27 04:00] VITALS: PULSE 74
[2023-08-27 05:49] VITALS: BP 123/56; PULSE 74; RESP 20; TEMP 36.6; O2SAT 96
[2023-08-27 07:19] LABS: Basophils Percent Auto 0.8 % (0.2-1.2); Eosinophils Absolute Auto 0.2 K/mm3 (0-0.3); Eosinophils Percent Auto 3.1 % (0-4.4); Hematocrit 41.2 % (37.0-47.0); Hemoglobin 13.1 g/dL (12.0-15.0); Immature Granulocyte Absolute 0.02 K/mm3 (0.00-0.031); Immature Granulocyte Percent A 0.4 % (0-0.5); Lymphocytes Absolute Auto 1.45 K/mm3 (0.9-3.2); Lymphocytes Percent Auto 27.9 % (18.3-44.2); Mean Corpuscular HGB Conc 31.8 g/dl (32-36); Mean Corpuscular Hemoglobin 29.4 pg (26-34); Mean Corpuscular Volume 92.6 fl (80-100); Mean Platelet Volume 10.7 fl (7.4-10.4); Monocytes Absolute Auto 0.6 K/mm3 (0.1-0.6); Monocytes Percent Auto 10.6 % (2.6-8.5); Neutrophils Percent Auto 57.2 % (45.5-73.1); Platelet Count Result 244 k/mm3 (150-375); Red Blood Count 4.45 M/mm3 (4.2-5.4); Red Cell Distribution Width 12.9 % (11.5-14.5); White Blood Count 5.2 K/mm3 (4.5-10.0)
[2023-08-27 07:31] LABS: Anion Gap 7 mmol/L (8-16); Blood Urea Nitrogen 26 mg/dL (7-17); Calcium 9.3 mg/dL (8.4-10.2); Carbon Dioxide 28 mmol/L (22-30); Chloride 104 mmol/L (98-107); Estimated CRCL calculation 39 ml/min; Estimated Glomerular Filt Rate 53; Glucose 98 mg/dL (65-110); Potassium 4.1 mmol/L (3.4-5.0); Sodium 139 mmol/L (137-145)
[2023-08-27 08:00] VITALS: PULSE 74; RESP 20; O2SAT 96
[2023-08-27] MEDS: carvediloL 6.25 MG TABLET PO (09:10)
[2023-08-27] MEDS: CHOLECALCIFEROL 1,000 UNITS TABLET 1000 UNITS PO (09:10)
[2023-08-27] MEDS: GABAPENTIN 300 MG CAPSULE 600 MG PO (09:10)
[2023-08-27] MEDS: PANTOPRAZOLE 40 MG TABLET PO (09:10)
[2023-08-27] MEDS: ASPIRIN 81 MG ENTERIC TABLET PO (09:11)
[2023-08-27] MEDS: ASCORBIC ACID 500 MG TABLET PO (09:11)
[2023-08-27] MEDS: DICLOFENAC SODIUM 1% 100 GM GEL (*BKC) 1 APPLIC TOPICAL (09:11)
[2023-08-27] MEDS: DULoxetine HCL 60 MG CAPSULE.DR PO (09:11)
[2023-08-27] MEDS: ATORVASTATIN 40 MG TABLET PO (09:11)
--- NOTE | 2023-08-27 12:27 | PM.DS ---
DS: Admitting Diagnosis Discharge Date 08/27/23 Admitting Diagnosis Vertigo Stenosis of cerebral artery Diastolic dysfunction DS: Discharge Diagnosis Discharge Diagnosis (1) Vertigo: Code(s): R42 - Dizziness and giddiness Status: Acute Assessment and Plan: (2) Stenosis of cerebral artery: Code(s): I66.9 - Occlusion and stenosis of unspecified cerebral artery Status: Acute Assessment and Plan: (3) Diastolic dysfunction: Code(s): I51.89 - Other ill-defined heart diseases Status: Acute DS: Summary Hospital Course Reason for hospitalization: Vertigo Stenosis cerebral artery Diastolic dysfunction Hospital Course: This is a 78-year-old female who presented to the hospital on 08/25/2023 with complaints of dizziness, nausea, and vomiting. Workup in the hospital included a head and neck CTA which shown 50-70% moderate stenosis of the right communicating artery, no evidence of atherosclerotic plaque to bilateral carotid bulbs, age-related changes, no acute intracranial process or abnormally enhancing brain lesions. Chest x-ray was done which shown small lung volumes with mild opacities in the left lower lung zone. 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 Venous Doppler study was done and was negative for DVT. Echocardiogram was done which shown normal LV systolic function with an EF of 60-65%, grade 1 diastolic dysfunction, normal RV systolic function. Neuro assessment remain negative. Patient was diagnosed with vertigo and worked with therapy on vestibular training. Labs today were essentially unremarkable. She is stable for discharge today. She will need to follow up with her primary care physician in 1 week. Final diagnosis: Vertigo, hyperlipidemia Status at Discharge Cognitive/behavioral status at discharge: Alert oriented x4 Functional status at discharge: independent ambulation Overall status at discharge: patient is progressing back to baseline Time Spent with Patient Time attestation: Total time spent providing and/or coordinating discharge services: Time spent: Greater than 30 minutes Exam Narrative: General: In no acute distress, well nourished Head: atraumatic, no encephalopathy Eyes: EOMI, PERRLA, sclera clear ENT: moist mucous membranes, nasal passages clear Neck: supple, no JVD, no adenopathy, trachea midline Cardiac: Normal S1 and S2. No murmur, gallops or friction rubs, peripheral pulses intact. Respiratory: Lungs clear to auscultation, no adventitious lung sounds Gastrointestinal: soft, non-distended, non-tender, normoactive bowel sounds. : voiding without difficulty. Extremities: moves all extremities well, no edema, good ROM, strength 5/5 Skin: clean, dry, intact. No wounds or lesions. Neuro: Alert and oriented x4, cranial nerves intact, no neuro deficits. Psych: normal mood, normal affect, interactive DS: Data Data Completed and Pending Completed studies during hospitalization: Venous Doppler study Brain MRI Chest x-ray Head/neck CTA Pending studies at discharge: None Labs on day of discharge: Labs from last 24 hours 08/27/23 08/26/23 06:52 06:42 WBC 5.2 RBC 4.45 Hgb 13.1 Hct 41.2 MCV 92.6 MCH 29.4 MCHC 31.8 L RDW 12.9 Plt Count 244 MPV 10.7 H Immature Gran % (Auto) 0.4 Neut % (Auto) 57.2 Lymph % (Auto) 27.9 Coleman % (Auto) 10.6 H Eos % (Auto) 3.1 Baso % (Auto) 0.8 Lymph # (Auto) 1.45 Coleman # (Auto) 0.6 Eos # (Auto) 0.2 Baso # (Auto) 0.0 Abs Immat Gran (auto) 0.02 Absolute Neuts (auto) 3.0 Absolute Nucleated RBC 0.0 Nucleated RBC % 0.0 Sodium 139 Potassium 4.1 Chloride 104 Carbon Dioxide 28 Anion Gap 7 L BUN 26 H Creatinine 1.00 Estim Creat Clear Calc 39 Estimated GFR 53 L Glucose 98 Hemoglobin A1c 6.0 H Calcium 9.3 Procedures/Treatments: None D
== END 2023-08-27 15:10 | disposition home or self-care (01) | DRG 149 ==
LOC: ANHED 17:54 → ANH3MEDSUR 21:44
PROVIDERS: Nurse Practitioner; Physician Assistant; Student in an Organized Health Care Education/Training Program; Admitting Provider Family Medicine; Emergency Provider Emergency Medicine; PCP Family Medicine; Visit Provider Nurse Practitioner Acute Care
DX: H81.10 Benign paroxysmal vertigo, unspecified ear (principal); I66.9 Occlusion and stenosis of unspecified cerebral artery; I51.89 Other ill-defined heart diseases; E78.5 Hyperlipidemia, unspecified; D64.9 Anemia, unspecified; K21.9 Gastro-esophageal reflux disease without esophagitis; M81.0 Age-related osteoporosis without current pathological fracture; I73.00 Raynaud's syndrome without gangrene; L30.9 Dermatitis, unspecified; G62.9 Polyneuropathy, unspecified; Z86.16 Personal history of COVID-19; Z96.1 Presence of intraocular lens; Z98.42 Cataract extraction status, left eye; Z98.41 Cataract extraction status, right eye; Z87.891 Personal history of nicotine dependence
CPT/HCPCS: 36415; 70496; 70498; 70553; 71045; 80048; 80053; 80061; 81003; 82948; 83036; 83735; 85025; 85027; 93005; 93306; 93971; 96374; 96375; 97161; 97530; 99285; A9270; A9577; G0378; J2405; J2550; J2765; J3360; Q9967

== ENCOUNTER 2023-12-16 16:29 | Emergency (ER) | payer MEDICARE, OTHER, SELFPAY ==
[2023-12-16 16:53] VITALS: BP 140/66; PULSE 69; RESP 16; TEMP 36.8; O2SAT 98
--- NOTE | 2023-12-16 16:57 | ED.FEMALEGU ---
HPI - Female Genitourinary General Chief complaint: Urogenital-Female Stated complaint: UTI Time Seen by Provider: 12/16/23 16:57 Source: patient Mode of arrival: ambulatory Limitations: no limitations History of Present Illness HPI Narrative: Montse is a 78-year-old female patient presenting to the clinic today with complaints of a possible urinary tract infection. She reports she has had burning, frequency, and urgency over the last few days. Denies any fever, chills, back pain, or abdominal pain. States she has be in getting urinary tract infections more often over the last few years Related Data Home Medications Medication Instructions Recorded Confirmed ascorbic acid (vitamin C) 500 mg 500 mg PO DAILY 11/30/21 12/16/23 tablet calcium carb,cit ER 600 mg-vit D3 1 tablet PO DAILY 11/30/21 12/16/23 12.5 mcg (500 unit) tablet,ext.rel (Citracal-D3 Slow Release) cholecalciferol (vitamin D3) 25 25 mcg PO DAILY 11/30/21 12/16/23 mcg (1,000 unit) tablet (Vitamin D3) glucosamine-chondroitin 250 mg-200 2 tablet PO TID 11/04/22 12/16/23 mg tablet (Osteo Bi-Flex) gabapentin 300 mg capsule 600 mg PO BID 08/25/23 12/16/23 Allergies Allergy/AdvReac Type Severity Reaction Status Date / Time bupropion [From Wellbutrin] AdvReac Severe Other Verified 12/16/23 16:40 codeine AdvReac Unknown Nausea Verified 12/16/23 16:40 Review of Systems Review of Systems: Pertinent positives per HPI. Patient denies any fever, chills, rash, headache, visual changes, dizziness, cough, runny nose, sore throat, shortness of breath, chest pain, palpitations, nausea, vomiting, diarrhea, constipation, abdominal pain. [facility] Past Medical History Medical History Anemia Anxiety Chronic constipation Depression Diastolic dysfunction Eczema Gastroesophageal reflux disease Osteoporosis Pancreatic insufficiency Peripheral neuropathy Post-COVID chronic dyspnea Raynauds disease Sleep hypopnea Vitamin D deficiency Surgical History Surgical History Normal colonoscopy (11/2021) Status post cataract extraction of both eyes with insertion of intraocular lens Family History Family History Father Diabetes mellitus Heart disease Family history of diabetes mellitus in first degree relative Family history of coronary artery disease Hypertension Cerebrovascular accident Family history of arthritis Mother Heart disease Family history of diabetes mellitus in first degree relative Family history of coronary artery disease Hypertension Cerebrovascular accident Diabetes mellitus Family history of arthritis Sibling Family history of diabetes mellitus in first degree relative Hypertension Family history of arthritis Social History Social History Social History: Surrogate medical decision maker: Gómez Waters, spouse. Code status: Full code. Smoking packs per day: 1 Smoking cigarettes per day: 20.0 Years smoked: 20 Smoking pack-years: 20.00 Smoking status: Former smoker Tobacco type: cigarettes Second hand tobacco smoke exposure: Yes Smoking end date: 07/25/84 Alcohol intake: current Alcohol use details: Social alcohol use in moderation, mainly during the holidays. Substance use: never Substance use type: does not use Do You Feel Safe in your Home?: Yes Lack of Transportation: No Lack of Food: Never True Current Housing: I Have Housing Concerned About Future Housing: No Difficulty Paying Gas/Electric Bills: No Difficulty Paying for Meds: No Currently Unemployed: No Education: High School Diploma/GED Difficulty w/ Childcare or Family Care: No Living arrangements: with family Additional living arrangements com
== END 2023-12-16 17:35 | disposition home or self-care (01) ==
PROVIDERS: Emergency Provider Nurse Practitioner Family; PCP Family Medicine
DX: N30.01 Acute cystitis with hematuria (principal); Z87.891 Personal history of nicotine dependence; K21.9 Gastro-esophageal reflux disease without esophagitis; M81.0 Age-related osteoporosis without current pathological fracture; G62.9 Polyneuropathy, unspecified; I73.00 Raynaud's syndrome without gangrene; E55.9 Vitamin D deficiency, unspecified; Z96.1 Presence of intraocular lens; Z98.42 Cataract extraction status, left eye; Z98.41 Cataract extraction status, right eye
CPT/HCPCS: 81003; 87086; 99213; G0463

== ENCOUNTER 2024-02-22 09:29 | Outpatient (CLI) | payer MEDICARE, OTHER, SELFPAY ==
[2024-02-22 10:05] LABS: Anion Gap 10 mmol/L (4-12); Blood Urea Nitrogen 27 mg/dL (7-17); Calcium 9.6 mg/dL (8.4-10.2); Carbon Dioxide 32 mmol/L (22-30); Chloride 100 mmol/L (98-107); Estimated Glomerular Filt Rate 48; Glucose 130 mg/dL (65-110); Potassium 5.3 mmol/L (3.4-5.0); Sodium 142 mmol/L (137-145)
== END 2024-02-22 09:30 | disposition home or self-care (01) ==
LOC: ANHLAB 09:32
PROVIDERS: PCP Family Medicine; Visit Provider Family Medicine
DX: R60.0 Localized edema (principal)
CPT/HCPCS: 36415; 80048

== ENCOUNTER 2024-03-27 17:01 | Outpatient (CLI) | payer MEDICARE, OTHER, SELFPAY ==
[2024-03-27 17:38] LABS: Anion Gap 11 mmol/L (4-12); Blood Urea Nitrogen 19 mg/dL (7-17); Calcium 9.7 mg/dL (8.4-10.2); Carbon Dioxide 29 mmol/L (22-30); Chloride 99 mmol/L (98-107); Estimated Glomerular Filt Rate 43; Glucose 120 mg/dL (65-110); Sodium 139 mmol/L (137-145)
== END 2024-03-27 17:02 | disposition home or self-care (01) ==
LOC: ANHLAB 17:05
PROVIDERS: PCP Family Medicine; Visit Provider Family Medicine
DX: N18.31 Chronic kidney disease, stage 3a (principal); E87.5 Hyperkalemia
CPT/HCPCS: 36415; 80048

== ENCOUNTER 2024-04-21 13:20 | Outpatient (CLI) | payer MEDICARE, OTHER, SELFPAY ==
[2024-04-21 14:01] LABS: Anion Gap 8 mmol/L (4-12); Blood Urea Nitrogen 16 mg/dL (7-17); Calcium 9.6 mg/dL (8.4-10.2); Carbon Dioxide 29 mmol/L (22-30); Chloride 99 mmol/L (98-107); Estimated Glomerular Filt Rate 53; Glucose 108 mg/dL (65-110); Potassium 4.7 mmol/L (3.4-5.0); Sodium 136 mmol/L (137-145)
== END 2024-04-21 13:21 | disposition home or self-care (01) ==
PROVIDERS: PCP Family Medicine; Visit Provider Family Medicine
DX: N18.31 Chronic kidney disease, stage 3a (principal)
CPT/HCPCS: 36415; 80048

== ENCOUNTER 2024-05-11 16:45 | Outpatient (CLI) | payer MEDICARE, OTHER, SELFPAY ==
[2024-05-11 17:14] LABS: Basophils Absolute Auto 0.1 K/mm3 (0.0-0.1); Basophils Percent Auto 1.1 % (0.2-1.2); Eosinophils Absolute Auto 0.2 K/mm3 (0-0.3); Eosinophils Percent Auto 3.5 % (0-4.4); Hematocrit 39.4 % (37.0-47.0); Immature Granulocyte Absolute 0.03 K/mm3 (0.00-0.031); Immature Granulocyte Percent A 0.5 % (0-0.5); Lymphocytes Absolute Auto 1.98 K/mm3 (0.9-3.2); Mean Corpuscular Hemoglobin 29.9 pg (26-34); Mean Corpuscular Volume 90.6 fl (80-100); Mean Platelet Volume 10.9 fl (7.4-10.4); Monocytes Absolute Auto 0.7 K/mm3 (0.1-0.6); Monocytes Percent Auto 9.9 % (2.6-8.5); Neutrophils Absolute Auto 3.6 K/mm3 (1.3-6.7); Platelet Count Result 248 k/mm3 (150-375); Red Blood Count 4.35 M/mm3 (4.2-5.4); Red Cell Distribution Width 13.6 % (11.5-14.5); White Blood Count 6.6 K/mm3 (4.5-10.0)
[2024-05-11 17:24] LABS: Alanine Aminotransferase 17 U/L (6-35); Alkaline Phosphatase 64 U/L (38-126); Anion Gap 5 mmol/L (4-12); Aspartate Amino Transferase 24 U/L (14-36); Bilirubin,Total 0.9 mg/dL (0.2-1.3); Blood Urea Nitrogen 15 mg/dL (7-17); Carbon Dioxide 31 mmol/L (22-30); Chloride 99 mmol/L (98-107); Estimated Glomerular Filt Rate 53; Glucose 115 mg/dL (65-110); Potassium 4.1 mmol/L (3.4-5.0); Sodium 135 mmol/L (137-145)
== END 2024-05-11 16:46 | disposition home or self-care (01) ==
LOC: ANHLAB 16:49
PROVIDERS: PCP Family Medicine; Visit Provider Family Medicine
DX: M18.31 Unilateral post-traumatic osteoarthritis of first carpometacarpal joint, right hand (principal); I51.89 Other ill-defined heart diseases; R53.1 Weakness; R68.89 Other general symptoms and signs; R39.9 Unspecified symptoms and signs involving the genitourinary system
CPT/HCPCS: 36415; 80053; 85025

== ENCOUNTER 2024-05-14 15:38 | Outpatient (CLI) | payer MEDICARE, OTHER, SELFPAY ==
[2024-05-14 16:22] LABS: Add Urine Microscopic? YES; Appearance Urine Cloudy (Clear); Bacteria Urine 1+ /hpf; Bilirubin Urine Negative (Negative); Blood Urine Negative (Negative); Color Urine Dark Yellow (Yellow); Glucose Urine UA Negative (Negative); Ketones Urine Trace mg/dL (Negative); Leukocyte Esterase Ur Trace LEU/UL (Negative); Need Manual Microscopic Reviewed; Nitrate Urine Negative (Negative); Protein Urine Trace mg/dL (Negative); Specific Grav Ur 1.018 (1.001-1.035); Squamous Epithelial Cell Urine Many /hpf (Few)
== END 2024-05-14 15:39 | disposition home or self-care (01) ==
PROVIDERS: PCP Family Medicine; Visit Provider Family Medicine
DX: N18.31 Chronic kidney disease, stage 3a (principal); I51.89 Other ill-defined heart diseases; R53.1 Weakness
CPT/HCPCS: 81001

== ENCOUNTER 2024-05-18 17:59 | Outpatient (NON) | payer MEDICARE, OTHER, SELFPAY | END 2024-05-18 18:00 | disposition home or self-care (01) | PROVIDERS: PCP Family Medicine; Visit Provider Family Medicine | DX: R82.81 Pyuria (principal) | CPT/HCPCS: 87086 ==

== ENCOUNTER 2025-05-29 16:43 | Outpatient (CLI) | payer MEDICARE, OTHER, SELFPAY ==
--- OUTSIDE RECORDS SUMMARY | 2009-08-07 09:00 | XMS_ITS | Continuity of Care Document ---
Author Organization [facility] Address [address] [place] [address] Phone Care Team Providers Care Copyright Expert Name Role Phone Sampson OD, Cj Unavailable Unavailable Procedures Procedure Date Eye Exam & Treatment Refraction Contact Lens Hydrophilic, Spherical [facility] [employer] CL Replacement - Other Lens [employer] [facility] No Charge Contact Lens Check No Charge Contact Lens Check CL Replacement - [employer] Disp W/BW Soft [employer] [facility] Eye Exam & Treatment Refraction Eye Exam Established Pt Eye Exam Established Pt Advance Directives Directive Yes / No Effective Date File Name No Information Encounters Encounter Description Practice Location Reason(s) For Visit Diagnoses Date Provider Providers Copied on Encounter [facility], [address] [place] [address] [address], [place], [place], [address], [place] tel:[phone] [facility] No Information 4-201 0 Sampson OD Cj. [address], [place], [address], [place]. tel:[phone] [facility], [address], [place], [place], [address], [place] tel:[phone] [facility] No Information Main-0 2-200 9 Sampson OD Cj. [address], [place], [place], [facility], [place]. tel:[phone] [facility], [address] [place] [address] [address], [place], [place], [address], tel:[phone] [facility] No Information Oct-1 6-200 8 Sampson OD Cj. [address], [place], [facility], [place]. tel:[phone] [facility], [address] [place] [address] [address], [place], [place], [address], [place] tel:[phone] [facility] No Information Oct-0 2-200 8 Sampson OD Cj. [address], [place], [facility], [place]. tel:[phone] [facility], [address] [place] [address] [address], [place], [place], [address], [place] tel:[phone] [facility] No Information Aug-2 8-200 8 Sampson OD Cj. [address], [place], [facility], [place]. tel:[phone] [facility], [address] [place] [address] [address], [place], [place], [address], [place] tel:[phone] [facility] No Information Sep-1 3-200 7 Sampson OD Jc. [address], [place], [facility], [place]. tel:[phone] [facility], [address] [place] [address] [address], [place], [place], [address], [place] tel:[phone] [facility] No Information Aug-1 6-200 7 Sampson OD Cj. [address], [place], [facility], [place]. tel:[phone] Family History Family Member Type Diagnosis Age At Onset No Information Payers Payer name Insurance type Covered libertarian ID Nik clemons(s) [employer] Plan [id number] Social History Type Description Quantity Date Captured [...]
[2025-05-29 17:56] LABS: Hematocrit 37.9 % (37.0-47.0); Hemoglobin 12.3 g/dL (12.0-15.0); Immature Granulocyte Percent A 0.3 % (0-0.5); Lymphocytes Absolute Auto 1.94 K/mm3 (0.9-3.2); Mean Corpuscular HGB Conc 32.5 g/dl (32-36); Mean Corpuscular Hemoglobin 30.0 pg (26-34); Mean Corpuscular Volume 92.4 fl (80-100); Nucleated Red Blood Cells Absolute Auto 0.000 K/mm3 (0.0-0.012); Nucleated Red Blood Cells Perc 0.0 % (0.0-0.2); Platelet Count Result 236 k/mm3 (150-375); Red Blood Count 4.10 M/mm3 (4.2-5.4); White Blood Count 6.1 K/mm3 (4.5-10.0)
[2025-05-29 18:15] LABS: Alanine Aminotransferase 18 U/L (6-35); Albumin Level 4.3 g/dL (3.5-5.1); Alkaline Phosphatase 49 U/L (38-126); Anion Gap 7 mmol/L (4-12); Aspartate Amino Transferase 29 U/L (14-36); Bilirubin,Total 0.8 mg/dL (0.2-1.3); Blood Urea Nitrogen 21 mg/dL (7-17); CRP < 0.5 mg/dL (<1.0); Calcium 9.4 mg/dL (8.4-10.2); Carbon Dioxide 29 mmol/L (22-30); Chloride 99 mmol/L (98-107); Estimated Glomerular Filt Rate 53; Glucose 86 mg/dL (65-110); Magnesium 2.0 mg/dL (1.6-2.3); Potassium 5.6 mmol/L (3.4-5.0); Sodium 135 mmol/L (137-145); Total Protein 7.6 g/dL (6.3-8.2)
[2025-05-29 18:26] LABS: Iron 112 ug/dL (37-170)
[2025-05-29 18:35] LABS: Percent Iron Saturation 39 % (20-50)
[2025-05-29 18:50] LABS: Thyroid Stimulating Hormone 0.871 uIU/mL (0.465-4.680)
[2025-05-29 19:02] LABS: Ferritin 99.00 ng/mL (11.1-264)
[2025-05-29 19:09] LABS: Vitamin B12 778.0 pg/mL (239-931)
== END 2025-05-29 16:44 | disposition home or self-care (01) ==
LOC: ANHLAB 16:44
PROVIDERS: PCP Family Medicine; Visit Provider Family Medicine
DX: E87.5 Hyperkalemia (principal); E55.9 Vitamin D deficiency, unspecified; D64.9 Anemia, unspecified; M79.10 Myalgia, unspecified site; E78.2 Mixed hyperlipidemia
CPT/HCPCS: 36415; 80048; 80076; 82306; 82607; 82728; 83540; 83550; 83735; 84443; 85025; 85652; 86140

== ENCOUNTER 2025-05-30 13:32 | Outpatient (CLI) | payer MEDICARE, OTHER, SELFPAY ==
--- OUTSIDE RECORDS SUMMARY | 2009-08-07 09:00 | XMS_ITS | Continuity of Care Document ---
Author Organization [facility] Address [address] [place] [address] Phone Care Team Providers Care Supervisor Fertilizer Name Role Phone Sampson OD, Cj Unavailable Unavailable Procedures Procedure Date Eye Exam & Treatment Refraction Contact Lens Hydrophilic, Spherical [facility] CL Replacement - Other Lens [facility] No Charge Contact Lens Check No Charge Contact Lens Check CL Replacement - [employer] Disp W/BW Soft [facility] Eye Exam & Treatment Refraction Eye Exam Established Pt Eye Exam Established Pt Advance Directives Directive Yes / No Effective Date File Name No Information Encounters Encounter Description Practice Location Reason(s) For Visit Diagnoses Date Provider Providers Copied on Encounter [facility], [address] [place] [address] [address], [place], [place], [id number], [place] tel:[phone] [facility] No Information 4-201 0 Sampson OD Cj. [address], [place], [address], [place]. tel:[phone] [facility], [address], [place], [place], [address], [place] tel:[phone] [facility] No Information Main-0 2-200 9 Sampson OD Cj. [address] , [address], [place], [place], [facility], [place]. tel:[phone] [facility] Eye [facility], [address] [place] [address] [address], [place], [place], [address], tel:[phone] [facility] No Information Oct-1 6-200 8 Sampson OD Cj. [address], [place], [place], [facility], [place]. tel:[phone] [facility], [address] [place] [address] [address], [place], [place], [id number], [place] tel:[phone] [facility] No Information Oct-0 2-200 8 Sampson OD Cj. [address], [place], [place], [facility], [place]. tel:[phone] [facility], [address] [place] [address] [address], [place], [place], [address], [place] tel:[phone] [facility] No Information Aug-2 8-200 8 Sampson OD Cj. [address], [place], [place], [facility], [place]. tel:[phone] [facility], [address] [place] [address] [address], [place], [place], [address], [place] tel:[phone] [facility] No Information Sep-1 3-200 7 Sampson OD Cj. [address], [place], [place], [facility], [place]. tel:[phone] [facility], [address] [place] [address] [address], [place], [place], [address], [place] tel:[phone] [facility] No Information Aug-1 6-200 7 Sampson OD Cj. [address], [place], [place], [facility], [place]. tel:[phone] Family History Family Member Type Diagnosis Age At Onset No Information Payers Payer name Insurance type Covered republican ID Nik clemons(s) [employer] Plan [id number] Social History Type Description Quantity Date Captured Comments Sex Female Smoking Status No Information Chief Complaint And Reason For Visit No Information Reason For Referral Reason For Referral No Information History Of Present Illness Encounter Date Complaint History Of Prese nt Illness No Information Functional Status Date Functional Assessmen t No Information Instructions Date Instruction Additional Infor mation No Information Assessments Type Assessment Date No Information Patient Care Teams Name Effective Dates (start - stop) Status Members No Information
[2025-05-30 14:20] LABS: Potassium 4.5 mmol/L (3.4-5.0)
== END 2025-05-30 13:33 | disposition home or self-care (01) ==
PROVIDERS: PCP Family Medicine; Visit Provider Family Medicine
DX: E87.5 Hyperkalemia (principal)
CPT/HCPCS: 36415; 84132